=== PATIENT | male | born 1945 | race Caucasian/White ===

== ENCOUNTER 2017-09-07 13:14 | Emergency (ER) | payer BC, MEDICARE ==
[2017-09-07 13:33] VITALS: BP 123/52
[2017-09-07] MEDS ORDERED: Sodium Chloride 0.9% 1,000 ML IV ONE (13:39)
--- NOTE | 2017-09-07 14:07 | EDM.PDOC ---
ED HPI GENERAL MEDICAL PROBLEM - General Chief Complaint: Gastrointestinal Problem Stated Complaint: VOMITING BLOOD Time Seen by Provider: 09/07/17 13:40 Source of Information: Reports: Patient, EMS History Limitations: Reports: No Limitations - History of Present Illness INITIAL COMMENTS - FREE TEXT/NARRATIVE: 72-year-old male has been ill for the last 2-3 days with persistent vomiting. No significant pain. His last few emesis were reddened and dark. He called the ambulance today because he just couldn't stop vomiting. He has not checked his glucose levels for several days because he "can't eat anything". He's only been diagnosed with diabetes for 5 years but apparently it was established as type 1 diabetes. He's had significant weight loss over the last 6 months. Onset: Gradual (Over the past 3 days) Severity: Moderate Associated Symptoms: Reports: Nausea/Vomiting. Denies: Fever/Chills, Headaches , Shortness of Breath - Related Data Allergies Allergy/AdvReac Type Severity Reaction Status Date / Time cephalexin monohydrate Allergy Unknown Hives Verified 09/07/17 13:25 [From Keflex] codeine Allergy Unknown Vomiting Verified 09/07/17 13:25 Home Meds: Home Meds Insulin Glarg,Human.Rec.Analog [Lantus Solostar] 20 - 22 units SQ BEDTIME [History] traZODone 50 mg PO BEDTIME PRN 07/22/15 [History] Insulin Lispro [HumaLOG] 4 - 6 unit SUBCNJ TID 09/07/17 [History] Past Medical History HEENT History: Reports: Impaired Vision Psychiatric History: Reports: Anxiety, Depression Endocrine/Metabolic History: Reports: Diabetes, Type I - Infectious Disease History Infectious Disease History: Reports: Chicken Pox, Measles, Mumps Social & Family History - Tobacco Use Smoking Status *Q: Never Smoker Second Hand Smoke Exposure: No - Caffeine Use Caffeine Use: Reports: Coffee - Alcohol Use Days Per Week of Alcohol Use: 7 Number of Drinks Per Day: 3 Total Drinks Per Week: 21 - Recreational Drug Use Recreational Drug Use: No ED ROS GENERAL - Review of Systems Review Of Systems: See Below Constitutional: Reports: Malaise, Weakness HEENT: Reports: No Symptoms Respiratory: Denies: Shortness of Breath, Pleuritic Chest Pain Cardiovascular: Denies: Chest Pain, Palpitations GI/Abdominal: Reports: Nausea, Vomiting. Denies: Abdominal Pain, Diarrhea : Reports: Frequency (Decreased urinary frequency) Skin: Reports: No Symptoms Neurological: Denies: Dizziness, Headache Psychiatric: Reports: No Symptoms ED EXAM, GENERAL - Physical Exam Exam: See Below Exam Limited By: No Limitations General Appearance: Alert, No Apparent Distress, Other (Appears to be hyperventilating moderately.) Respiratory/Chest: No Respiratory Distress, Lungs Clear Cardiovascular: Regular Rate, Rhythm, Tachycardia GI/Abdominal: Soft, Non-Tender Extremities: Normal Inspection. No: Pedal Edema Neurological: Alert, Oriented, No Motor/Sensory Deficits Psychiatric: Normal Affect, Normal Mood Skin Exam: Warm, Dry Course - Vital Signs Last Recorded V/S: Last Vital Signs Temp 95.4 F 09/07/17 13:26 Pulse 131 H 09/07/17 13:26 Resp 21 H 09/07/17 13:26 BP 123/52 L 09/07/17 13:26 Pulse Ox 99 09/07/17 13:26 - Orders/Labs/Meds Labs: Laboratory Tests 09/07/17 09/07/17 09/07/17 Range/Units 13:45 13:45 13:50 WBC 22.9 H (4.5-11.0) K/uL RBC 4.69 (4.30-5.90) M/uL Hgb 14.3 (12.0-15.0) g/dL Hct 45.6 (40.0-54.0) % MCV 97 (80-98) fL MCH 31 (27-31) pg MCHC 31 L (32-36) % Plt Count 277 (150-400) K/uL Neut % (Auto) 84 H (36-66) % Lymph % (Auto) 4 L (24-44) % [place] % (Auto) 12 H (2-6) % Eos % (Auto) 0 L (2-4) % Baso % (Auto) 0 (0-1) % Puncture Site Rt radial ABG pH 7.053 L* (7.350-7.450) ABG pCO2 10.4 L* (35.0-42.0) mmHg ABG pO2 131.0 H (75.0-100.0) mmHg ABG HCO3 2.7 L (22.0-26.0) mmol/L ABG Total CO2 2.7 L (23.0-27.0) mmol/L ABG O2 Saturation 96.8 (95.0-98.0) % ABG O2 Content 18.9 (15.0-23.0) %vol ABG Base Excess -28.0 mm/L ABG Hemoglobin 14.1 (13.5-18.0) g/dL ABG Oxyhemoglobin 94.8 % ABG Carboxyhemoglobin 1.0 (0.0-1.6) % ABG Methemoglobin 1.1 % [place] Test Pass O2 Delivery Device Room air Sodium 135 L (140-148) mmol/L Potassium 5.9 H (3.6-5.2) mmol/L Chloride 90 L (100-108) mmol/L Carbon Dioxide 5 L D (21-32) mmol/L Anion Gap 45.9 H (5.0-14.0) mmol/L BUN 37 H D (7-18) mg/dL Creatinine 3.1 H D (0.8-1.3) mg/dL Est Cr Clr Drug Dosing 16.79 mL/min Estimated GFR (MDRD) 20 L (>60) Glucose 881 H* (74-106) mg/dL Calcium 8.2 L (8.5-10.1) mg/dL Total Bilirubin 0.6 D (0.2-1.0) mg/dL AST 13 L (15-37) U/L ALT 24 (12-78) U/L Alkaline Phosphatase 88 (46-116) U/L Total Protein 7.0 (6.4-8.2) g/dL Albumin 3.9 (3.4-5.0) g/dL Globulin 3.1 (2.3-3.5) g/dL Albumin/Globulin Ratio 1.3 (1.2-2.2) Meds: Medications Discontinued Medications Generic Name Dose Route Start Last Admin Trade Name Freq PRN Reason Stop Dose Admin Sodium Chloride 1,000 mls @ 999 mls/hr 09/07/17 13:39 09/07/17 13:54 Normal Saline IV 09/07/17 14:39 999 mls/hr ONETIME ONE Administration Insulin Human Regular 5 unit 09/07/17 14:13 09/07/17 14:27 Novolin R IVPUSH 09/07/17 14:14 5 units ONETIME ONE Administration Protocol - Re-Assessments/Exams Free Text/Narrative Re-Assessment/Exam: 09/07/17 14:07 No glucose level was checked by EMS and transfer, so fluids were bolused, CBC CMP ABGs obtained on room air. ABGs confirmed I could diabetic ketoacidosis with a pH of 7.05 and PCO2 of 10. 09/07/17 14:37 Glucose is 880, anion gap 46. Patient was given 5 units of regular insulin IV and normal saline was continued bolused. Potassium was not replaced as of yet, its current level is 5.9. He'll be transferred urgently to [place] where they have an ICU bed, he was accepted by Dr. Arnett. The hospital in [place] was chosen because it was the closest appropriate hospital to transport by ambulance as well as closest to his home. Departure - Departure Time of Disposition: 15:01 Disposition: DC/Tfer to Acute Hospital 02 Condition: Fair Clinical Impression: Diabetic keto-acidosis Qualifiers: Diabetes mellitus type: type 1 Diabetes mellitus complication detail: without coma Qualified Code(s): E10.10 - Type 1 diabetes mellitus with ketoacidosis without coma - Discharge Information Referrals: PCP,None [Primary Care Provider] - Forms: ED Department Discharge Care Plan Goals: Aggressive hydration will be continued, the patient will be transferred to [place] for inpatient care.
[2017-09-07] MEDS ORDERED: Insulin Regular, Human 100 Units/ML 10 ML Vial IVPUSH ONE (14:13)
== END 2017-09-07 15:01 ==
LOC: JP.ED 13:14
DX: E10.10 Type 1 diabetes mellitus with ketoacidosis without coma (principal); Z88.5 Allergy status to narcotic agent; Z79.4 Long term (current) use of insulin
CPT/HCPCS: 36415; 36600; 80053; 82803; 85025; 96361; 96374; 99284; A9270; J7040

== ENCOUNTER 2019-08-17 13:31 | Inpatient (IN) | payer OTHER, MEDICARE ==
--- NOTE | 2019-08-17 14:12 | EDM.PDOC ---
ED HPI GENERAL MEDICAL PROBLEM - General Chief Complaint: General Stated Complaint: MED VIA [facility] Time Seen by Provider: 08/17/19 14:20 Source of Information: Reports: Patient, EMS, Family - History of Present Illness INITIAL COMMENTS - FREE TEXT/NARRATIVE: Ill appearing 74 male presents via EMS for concerns regarding diabetes management. Patient is having difficulty getting his insulin and has not been on insulin for nearly 3 weeks. Patient has changed to a different provider. Patient was noted to have irregular breathing and confusion overnight. Patient fells terrible and EMS was contacted this am by due to concerns. Patient denies cough or URI symptoms. Patient has chronic diarrhea which is not new worse or different. Patient has had increased confusion over the last 2-3 days with worsening vision. Patient has declined ER evaluation over the last week but symptoms became more concerning overnight and this am, call EMS and did not given patient the option. Patient has had nausea, vomiting and decreased oral intake for the last 2-3 days. Patient dis unable to give any additional history. is at bedside and able to add some history. - Related Data Allergies Allergy/AdvReac Type Severity Reaction Status Date / Time cephalexin monohydrate Allergy Unknown Hives Verified 08/17/19 13:50 [From Keflex] codeine AdvReac Unknown Vomiting Verified 08/17/19 14:30 Home Meds: Home Meds Insulin Glarg,Human.Rec.Analog [Lantus Solostar] 20 - 22 units SQ BEDTIME [History] Insulin Lispro [HumaLOG] 4 - 6 unit SUBCNJ TID 09/07/17 [History] Past Medical History HEENT History: Reports: Impaired Vision Psychiatric History: Reports: Anxiety, Depression Endocrine/Metabolic History: Reports: Diabetes, Type I - Infectious Disease History Infectious Disease History: Reports: Chicken Pox, Measles, Mumps Social & Family History - Tobacco Use Smoking Status *Q: Never Smoker - Caffeine Use Caffeine Use: Reports: Coffee - Alcohol Use Days Per Week of Alcohol Use: 7 Number of Drinks Per Day: 8 Total Drinks Per Week: 56 - Recreational Drug Use Recreational Drug Use: No ED ROS GENERAL - Review of Systems Review Of Systems: Unable To Obtain (weakness and kuzmal breathing.) ED EXAM, GENERAL - Physical Exam Exam: See Below Exam Limited By: Other (decreased LOC) General Appearance: Alert, Lethargic, Moderate Distress, Cachetic Eye Exam: Bilateral Eye: EOMI, PERRL Ears: Normal External Exam, Normal Canal, Hearing Grossly Normal Nose: Normal Inspection, Normal Mucosa Throat/Mouth: Normal Inspection, Normal Lips, Normal Teeth, Normal Voice, Other (very dry mouth) Head: Normocephalic Neck: Normal Inspection (flat vessels noted), Supple, Non-Tender, Full Range of Motion Respiratory/Chest: Respiratory Distress, Decreased Breath Sounds, Accessory Muscle Use, Other (Kuzmal breathing ) Cardiovascular: Regular Rate, Rhythm, No Edema, No JVD, Tachycardia GI/Abdominal: Soft, Non-Tender, No Mass, Other (very thin ). No: Distended, Guarding, Rigid, Rebound Back Exam: Normal Inspection, Full Range of Motion. No: CVA Tenderness (R), CVA Tenderness (L) Extremities: Normal Range of Motion, Non-Tender, Mottled. No: Normal Capillary Refill (decreased) Neurological: Alert, CN II-XII Intact, No Motor/Sensory Deficits, Slow to Respond, Abnormal Gait Psychiatric: Normal Affect, Normal Mood Skin Exam: No Rash, Cool EKG INTERPRETATION EKG Date: 08/17/19 Time: 14:50 Rhythm: Other (Sinus tachycardia) Rate (Beats/Min): 111 [place]: RAD-Right [place] Deviation P-Wave: Present QRS: Wide (slightly widened) ST-T: Other (early repol likely due to tacycardia) QT: Normal Comparison: NA - No Prior EKG (2013 Sinus Tachycardia with very similar appearance HR 125) Course - Vital Signs Last Recorded V/S: Last Vital Signs Temp 34.7 C L 08/17/19 14:03 Pulse 113 H 08/17/19 16:16 Resp 16 08/17/19 14:03 BP 134/57 L 08/17/19 16:16 Pulse Ox 100 08/17/19 14:03 - Orders/Labs/Meds Orders: Active Orders 24 hr Category Date Time Status Patient Status Manage Transfer [TRANSFER] Routine ADT 08/17/19 16:11 Active Cardiac Monitoring [RC] .As Directed Care 08/17/19 14:07 Active EKG Documentation Completion [RC] ASDIRECTED Care 08/17/19 14:18 Active Influenza Vaccine Charge [RC] .DISCHARGE Care 08/17/19 13:55 Active POC Glucose [Blood Glucose Check, Bedside] [RC] STAT Care 08/17/19 14:09 Active Chest 1V Frontal [CR] Stat Exams 08/17/19 14:18 Taken UA W/MICROSCOPIC [URIN] Stat Lab 08/17/19 14:41 Ordered Insulin Regular, Human [HumuLIN R] 100 unit Med 08/17/19 14:30 Active Sodium Chloride 0.9% [Normal Saline] 99 ml IV TITRATE Lactated Ringers [Ringers, Lactated] 1,000 ml Med 08/17/19 14:30 Active IV ASDIRECTED Sodium Chloride 0.9% [Normal Saline] 1,000 ml Med 08/17/19 14:15 Active IV ASDIRECTED Blood Culture x2 Reflex Set [OM.PC] Urgent Oth 08/17/19 14:06 Ordered Resuscitation Status Routine Resus Stat 08/17/19 16:13 Ordered EKG 12 Lead [EK] Urgent Ther 08/17/19 14:18 Ordered Medication Orders Sodium Chloride (Normal Saline) 1,000 mls @ 500 mls/hr IV ASDIRECTED JUDIE Last Admin: 08/17/19 14:16 Dose: 500 mls/hr Lactated Ringer's (Ringers, Lactated) 1,000 mls @ 500 mls/hr IV ASDIRECTED JUDIE Last Admin: 08/17/19 14:48 Dose: 500 mls/hr Insulin Human Regular 100 unit (/ Sodium Chloride) 100 mls @ 7.48 mls/hr IV TITRATE JUDIE; Protocol Last Admin: 08/17/19 14:48 Dose: 0.1 units/kg/hr, 7.48 mls/hr Labs: Laboratory Tests 08/17/19 08/17/19 08/17/19 Range/Units 14:06 14:07 14:07 WBC 23.4 H (4.5-11.0) K/uL RBC 4.73 (4.30-5.90) M/uL Hgb 14.8 (12.0-15.0) g/dL Hct 46.7 (40.0-54.0) % MCV 99 H (80-98) fL MCH 31 (27-31) pg MCHC 32 (32-36) % Plt Count 246 (150-400) K/uL Neut % (Auto) 82 H (36-66) % Lymph % (Auto) 6 L (24-44) % [place] % (Auto) 12 H (2-6) % Eos % (Auto) 0 L (2-4) % Baso % (Auto) 0 (0-1) % Sodium 138 L (140-148) mmol/L Potassium 4.6 (3.6-5.2) mmol/L Chloride 91 L (100-108) mmol/L Carbon Dioxide 8 L (21-32) mmol/L Anion Gap 43.6 H (5.0-14.0) mmol/L BUN 27 H (7-18) mg/dL Creatinine 3.2 H (0.8-1.3) mg/dL Est Cr Clr Drug Dosing 20.19 mL/min Estimated GFR (MDRD) 19 L (>60) Glucose 783 H* (74-106) mg/dL Lactic Acid 5.7 H (0.4-2.0) mmol/L Calcium 8.5 (8.5-10.1) mg/dL NT-Pro-B Natriuret Pep 823 H (5-125) pg/mL Ketones (NEGATIVE) 08/17/19 Range/Units 14:08 WBC (4.5-11.0) K/uL RBC (4.30-5.90) M/uL Hgb (12.0-15.0) g/dL Hct (40.0-54.0) % MCV (80-98) fL MCH (27-31) pg MCHC (32-36) % Plt Count (150-400) K/uL Neut % (Auto) (36-66) % Lymph % (Auto) (24-44) % [place] % (Auto) (2-6) % Eos % (Auto) (2-4) % Baso % (Auto) (0-1) % Sodium (140-148) mmol/L Potassium (3.6-5.2) mmol/L Chloride (100-108) mmol/L Carbon Dioxide (21-32) mmol/L Anion Gap (5.0-14.0) mmol/L BUN (7-18) mg/dL Creatinine (0.8-1.3) mg/dL Est Cr Clr Drug Dosing mL/min Estimated GFR (MDRD) (>60) Glucose (74-106) mg/dL Lactic Acid (0.4-2.0) mmol/L Calcium (8.5-10.1) mg/dL NT-Pro-B Natriuret Pep (5-125) pg/mL Ketones Moderate H (NEGATIVE) Meds: Medications Generic Name Dose Route Start Last Admin Trade Name Freq PRN Reason Stop Dose Admin Sodium Chloride 1,000 mls @ 500 mls/hr 08/17/19 14:15 08/17/19 14:16 Normal Saline IV 500 mls/hr ASDIRECTED JUDIE Administration Lactated Ringer's 1,000 mls @ 500 mls/hr 08/17/19 14:30 08/17/19 14:48 Ringers, Lactated IV 500 mls/hr ASDIRECTED JUDIE Administration Insulin Human Regular 100 unit 100 mls @ 7.48 mls/hr 08/17/19 14:30 08/17/19 14:48 / Sodium Chloride IV 0.1 units/kg/hr TITRATE JUDIE 7.48 mls/hr Administration Protocol 0.1 UNITS/KG/HR Discontinued Medications Generic Name Dose Route Start Last Admin Trade Name Carsonq PRN Reason Stop Dose Admin Influenza Virus Vaccine 1 each 08/17/19 13:55 Pharmacy To Dose - Influenza Vaccine IM 08/17/19 13:56 ONETIME ONE Influenza Virus Vaccine 180 mcg 08/17/19 14:00 Fluzone High-Dose 2019-20 Syringe IM 08/17/19 14:01 .ONCE ONE - Re-Assessments/Exams Free Text/Narrative Re-Assessment/Exam: Spoke to admitting provider regarding DKA and difficulty with DM management with no insulin the last 3 weeks due to insurance and medical provider difficulties. was updated regarding admission, need for IV fluids, insulin drip, NS and LR running. Patient did not offer any additional complaints or concerns. Patient denied cough, headache, fever, URI symptoms, urinary symptoms or new concerns. Patient has had decreased appetite over the last 3 weeks with unknown weight loss. I reviewed laboratory testing with patient and . Anion Gap 43. Acute kidney injury, BS 700+, moderate urine ketones and significant dehydration. Lactic Acid 5.7 likely secondary to poor perfusion. Repeat testing after hydration may be considered. 08/17/19 15:23 Admitting provider requested ICU admission and in department to evaluate patient. I asked for lab to be contacted regarding need for Q1H blood sugar tests while on insulin drip. CXR Portable obtained. UA pending, patient unable to give urine sample despite 2 liters of fluid given. 08/17/19 15:41 CRITICAL CARE TIME: Greater than 45 minutes spent while patient was critical due to DKA, needing IVF, Insulin drip initiated. Potassium and electrolytes are normal. Departure - Departure Time of Disposition: 16:20 Disposition: Admitted As Inpatient 68 Clinical Impression: Nausea & vomiting, Chronic back pain, Chronic diarrhea, Acidosis due to secondary diabetes, Acute renal insufficiency, Diabetes, Acute hyperglycemia Diabetic keto-acidosis Qualifiers: Diabetes mellitus type: type 1 Diabetes mellitus complication detail: without coma Qualified Code(s): E10.10 - Type 1 diabetes mellitus with ketoacidosis without coma - Discharge Information Referrals: PCP,None [Primary Care Provider] - Forms: ED Department Discharge - Problem List & Annotations (1) Diabetic keto-acidosis SNOMED Code(s): 131273818, 688340418 Code(s): E13.10 - OTH DIABETES MELLITUS WITH KETOACIDOSIS WITHOUT COMA Status: Acute Current Visit: Yes Qualifiers: Diabetes mellitus type: type 1 Diabetes mellitus complication detail: without coma Qualified Code(s): E10.10 - Type 1 diabetes mellitus with ketoacidosis without coma (2) Acute hyperglycemia SNOMED Code(s): 123489764 Code(s): R73.9 - HYPERGLYCEMIA, UNSPECIFIED Status: Acute Current Visit: Yes (3) Acute renal insufficiency SNOMED Code(s): 016003887 Code(s): N28.9 - DISORDER OF KIDNEY AND URETER, UNSPECIFIED Status: Acute Current Visit: Yes (4) Chronic back pain SNOMED Code(s): 459247884 Code(s): M54.9 - DORSALGIA, UNSPECIFIED; G89.29 - OTHER CHRONIC PAIN Status : Acute Current Visit: Yes (5) Nausea & vomiting SNOMED Code(s): 86450600 Code(s): R11.2 - NAUSEA WITH VOMITING, UNSPECIFIED Status: Acute Current Visit: Yes - My Orders Last 24 Hours: My Active Orders 08/17/19 13:55 Influenza Vaccine Charge [RC] .DISCHARGE 08/17/19 14:06 Blood Culture x2 Reflex Set [OM.PC] Urgent 08/17/19 14:07 Cardiac Monitoring [RC] .As Directed 08/17/19 14:09 POC Glucose [Blood Glucose Check, Bedside] [RC] STAT 08/17/19 14:15 Sodium Chloride 0.9% [Normal Saline] 1,000 ml IV ASDIRECTED 08/17/19 14:18 EKG Documentation Completion [RC] ASDIRECTED Chest 1V Frontal [CR] Stat EKG 12 Lead [EK] Urgent 08/17/19 14:30 Insulin Regular, Human [HumuLIN R] 100 unit Sodium Chloride 0.9% [Normal Saline] 99 ml IV TITRATE Lactated Ringers [Ringers, Lactated] 1,000 ml IV ASDIRECTED 08/17/19 14:41 UA W/MICROSCOPIC [URIN] Stat - Assessment/Plan Last 24 Hours: My Active Orders 08/17/19 13:55 Influenza Vaccine Charge [RC] .DISCHARGE 08/17/19 14:06 Blood Culture x2 Reflex Set [OM.PC] Urgent 08/17/19 14:07 Cardiac Monitoring [RC] .As Directed 08/17/19 14:09 POC Glucose [Blood Glucose Check, Bedside] [RC] STAT 08/17/19 14:15 Sodium Chloride 0.9% [Normal Saline] 1,000 ml IV ASDIRECTED 08/17/19 14:18 EKG Documentation Completion [RC] ASDIRECTED Chest 1V Frontal [CR] Stat EKG 12 Lead [EK] Urgent 08/17/19 14:30 Insulin Regular, Human [HumuLIN R] 100 unit Sodium Chloride 0.9% [Normal Saline] 99 ml IV TITRATE Lactated Ringers [Ringers, Lactated] 1,000 ml IV ASDIRECTED 08/17/19 14:41 UA W/MICROSCOPIC [URIN] Stat
[2019-08-17] MEDS ORDERED: Sodium Chloride 0.9% 1,000 ML IV SCH (14:15)
[2019-08-17] MEDS ORDERED: Lactated Ringers 1,000 ML IV SCH (14:30)
--- NOTE | 2019-08-17 16:29 | PCM.HP.2 ---
H&P History of Present Illness - General Date of Service: 08/17/19 Admit Problem/Dx: Admission Diagnosis/Problem Admission Diagnosis/Problem Diabetic ketoacidosis Source of Information: Patient, Family, Provider, RN Notes Reviewed History Limitations: Reports: No Limitations - History of Present Illness Initial Comments - Free Text/Narative: Mr. Patton is a 74-year-old gentleman who was admitted through the emergency department with profound weakness, confusion, nausea, vomiting, secondary to severe diabetic ketoacidosis. He is intermittently confused so much of history was obtained from his . She reports that he stop taking his insulin regularly about 3-4 weeks ago, since then he is been taking insulin infrequently. Over the last 3 days he has become significantly more weak and confused, with nausea and vomiting. He was brought into the emergency department and found to be in severe ketoacidosis with an anion gap of 43 and carbon dioxide level of 8. He is received 2 L of fluids in the emergency apartment and started on a continuous infusion of regular insulin. There is no evidence of underlying infection, white blood cell count is elevated at 23,000. Urinalysis and chest x-ray are pending at the time of this dictation. - Related Data Allergies/Adverse Reactions: Allergies Allergy/AdvReac Type Severity Reaction Status Date / Time cephalexin monohydrate Allergy Unknown Hives Verified 08/17/19 13:50 [From Keflex] codeine AdvReac Unknown Vomiting Verified 08/17/19 14:30 Home Medications: Home Meds Insulin Glarg,Human.Rec.Analog [Lantus Solostar] 20 - 22 units SQ BEDTIME [History] Insulin Lispro [HumaLOG] 4 - 6 unit SUBCNJ TID 09/07/17 [History] Past Medical History HEENT History: Reports: Impaired Vision Psychiatric History: Reports: Anxiety, Depression Endocrine/Metabolic History: Reports: Diabetes, Type I - Infectious Disease History Infectious Disease History: Reports: Chicken Pox, Measles, Mumps Social & Family History - Tobacco Use Smoking Status *Q: Never Smoker - Caffeine Use Caffeine Use: Reports: Coffee - Alcohol Use Days Per Week of Alcohol Use: 7 Number of Drinks Per Day: 8 Total Drinks Per Week: 56 - Recreational Drug Use Recreational Drug Use: No H&P Review of Systems - Review of Systems: Review Of Systems: See Below General: Reports: Malaise, Weakness, Decreased Appetite. Denies: Fever, Chills HEENT: Reports: No Symptoms Pulmonary: Reports: No Symptoms Cardiovascular: Reports: No Symptoms Gastrointestinal: Reports: Decreased Appetite, Nausea, Vomiting. Denies: Abdominal Pain, Black Stool, Bloody Stool, Constipation, Diarrhea, Difficulty Swallowing Genitourinary: Reports: No Symptoms Musculoskeletal: Reports: Back Pain Skin: Reports: No Symptoms Psychiatric: Reports: No Symptoms Neurological: Reports: No Symptoms Hematologic/Lymphatic: Reports: No Symptoms Immunologic: Reports: No Symptoms Exam - Exam Exam: See Below - Vital Signs Vital Signs: Last Vital Signs Temp 94.4 F L 08/17/19 14:03 Pulse 113 H 08/17/19 16:16 Resp 16 08/17/19 14:03 BP 134/57 L 08/17/19 16:16 Pulse Ox 100 08/17/19 14:03 Weight: 165 lb - Exam Quality Assessment: DVT Prophylaxis General: Alert, Cooperative, Moderate Distress. No: Oriented HEENT: Conjunctiva Clear, Hearing Intact, Normal Nasal Septum, Posterior Pharynx Clear, Pupils Equal. No: Mucosa Moist & [place] Neck: Supple, Trachea Midline, +2 Carotid Pulse wo Bruit Lungs: Clear to Auscultation, Normal Respiratory Effort, Decreased Breath Sounds. No: Wheezing Cardiovascular: Regular Rate, Regular Rhythm, Normal S1, Normal S2. No: Systolic Murmur, Diastolic Murmur GI/Abdominal Exam: Soft, Non-Tender, No Organomegaly, No Distention Back Exam: Normal Inspection, Full Range of Motion, Vertebral Tenderness Extremities: Non-Tender, No Pedal Edema Skin: Warm, Dry, Intact Neurological: Cranial Nerves Intact, Strength Equal Bilateral, Normal Speech, Normal Tone, Sensation Intact. No: Focal Deficit Neuro Extensive - Mental Status: Alert, Normal Mood/Affect, Disorientation to Place, Disorientation to Time, Memory Loss-Recent Events. No: Oriented x3, Normal Cognition, Memory Intact Psychiatric: Depressed - Patient Data Lab Results Last 24 hrs: Laboratory Results - last 24 hr 08/17/19 08/17/19 08/17/19 Range/Units 14:06 14:07 14:07 WBC 23.4 H (4.5-11.0) K/uL RBC 4.73 (4.30-5.90) M/uL Hgb 14.8 (12.0-15.0) g/dL Hct 46.7 (40.0-54.0) % MCV 99 H (80-98) fL MCH 31 (27-31) pg MCHC 32 (32-36) % Plt Count 246 (150-400) K/uL Neut % (Auto) 82 H (36-66) % Lymph % (Auto) 6 L (24-44) % Terrell % (Auto) 12 H (2-6) % Eos % (Auto) 0 L (2-4) % Baso % (Auto) 0 (0-1) % Sodium 138 L (140-148) mmol/L Potassium 4.6 (3.6-5.2) mmol/L Chloride 91 L (100-108) mmol/L Carbon Dioxide 8 L (21-32) mmol/L Anion Gap 43.6 H (5.0-14.0) mmol/L BUN 27 H (7-18) mg/dL Creatinine 3.2 H (0.8-1.3) mg/dL Est Cr Clr Drug Dosing 20.19 mL/min Estimated GFR (MDRD) 19 L (>60) Glucose 783 H* (74-106) mg/dL Lactic Acid 5.7 H (0.4-2.0) mmol/L Calcium 8.5 (8.5-10.1) mg/dL NT-Pro-B Natriuret Pep 823 H (5-125) pg/mL Ketones (NEGATIVE) 08/17/19 Range/Units 14:08 WBC (4.5-11.0) K/uL RBC (4.30-5.90) M/uL Hgb (12.0-15.0) g/dL Hct (40.0-54.0) % MCV (80-98) fL MCH (27-31) pg MCHC (32-36) % Plt Count (150-400) K/uL Neut % (Auto) (36-66) % Lymph % (Auto) (24-44) % Terrell % (Auto) (2-6) % Eos % (Auto) (2-4) % Baso % (Auto) (0-1) % Sodium (140-148) mmol/L Potassium (3.6-5.2) mmol/L Chloride (100-108) mmol/L Carbon Dioxide (21-32) mmol/L Anion Gap (5.0-14.0) mmol/L BUN (7-18) mg/dL Creatinine (0.8-1.3) mg/dL Est Cr Clr Drug Dosing mL/min Estimated GFR (MDRD) (>60) Glucose (74-106) mg/dL Lactic Acid (0.4-2.0) mmol/L Calcium (8.5-10.1) mg/dL NT-Pro-B Natriuret Pep (5-125) pg/mL Ketones Moderate H (NEGATIVE) Result Diagrams: 08/17/19 14:07 08/17/19 14:06 *Q Meaningful Use (ADM) - VTE Risk Assess *Q Each Risk Factor Represents 1 Point: Abnormal Pulmonary Function (COPD) Total Score 1 Point Risk Factors: 1 Each Risk Factor Represents 2 Points: Age 60 - 74 Years Total Score 2 Point Risk Factors: 2 Each Risk Factor Represents 3 Points: None Total Score 3 Point Risk Factors: 0 Each Risk Factor Represents 5 Points: None Total Score 5 Point Risk Factors: 0 Venous Thromboembolism Risk Factor Score *Q: 3 Problem List Initiated/Reviewed/Updated: Yes Orders Last 24hrs: Active Orders 24 hr Category Date Time Status Patient Status Manage Transfer [TRANSFER] Routine ADT 08/17/19 16:11 Ordered Cardiac Monitoring [RC] .As Directed Care 08/17/19 14:07 Active EKG Documentation Completion [RC] ASDIRECTED Care 08/17/19 14:18 Active Influenza Vaccine Charge [RC] .DISCHARGE Care 08/17/19 13:55 Active POC Glucose [Blood Glucose Check, Bedside] [RC] STAT Care 08/17/19 14:09 Active Chest 1V Frontal [CR] Stat Exams 08/17/19 14:18 Taken UA W/MICROSCOPIC [URIN] Stat Lab 08/17/19 14:41 Ordered Insulin Regular, Human [HumuLIN R] 100 unit Med 08/17/19 14:30 Active Sodium Chloride 0.9% [Normal Saline] 99 ml IV TITRATE Lactated Ringers [Ringers, Lactated] 1,000 ml Med 08/17/19 14:30 Active IV ASDIRECTED Sodium Chloride 0.9% [Normal Saline] 1,000 ml Med 08/17/19 14:15 Active IV ASDIRECTED Blood Culture x2 Reflex Set [OM.PC] Urgent Oth 08/17/19 14:06 Ordered Resuscitation Status Routine Resus Stat 08/17/19 16:13 Ordered EKG 12 Lead [EK] Urgent Ther 08/17/19 14:18 Ordered Medication Orders Sodium Chloride (Normal Saline) 1,000 mls @ 500 mls/hr IV ASDIRECTED JUDIE Last Admin: 08/17/19 14:16 Dose: 500 mls/hr Lactated Ringer's (Ringers, Lactated) 1,000 mls @ 500 mls/hr IV ASDIRECTED JUDIE Last Admin: 08/17/19 14:48 Dose: 500 mls/hr Insulin Human Regular 100 unit (/ Sodium Chloride) 100 mls @ 7.48 mls/hr IV TITRATE JUDIE; Protocol Last Admin: 08/17/19 14:48 Dose: 0.1 units/kg/hr, 7.48 mls/hr Assessment/Plan Comment:: ASSESSMENT AND PLAN DIABETIC KETOACIDOSIS-history of type 1 diabetes mellitus, he has been taking insulin only infrequently over the last 3-4 weeks. White blood cell count elevated likely secondary to stress, by history and physical examination no evidence of underlying infection. -Urinalysis and chest x-ray pending -IV insulin per ketoacidosis protocol -Electrolyte management per ketoacidosis protocol -IV fluids per protocol LACTIC ACIDOSIS-likely secondary to dehydration. -IV fluid replacement as above DEPRESSION-patient and give a history of worsening depression, patient reports that he really does not care if he lives or dies. -Consider initiation of antidepressant therapy -Patient follow-up with psychology for counseling MAINTENANCE ISSUES -DVT prophylaxis; Lovenox 40 mg subcutaneous daily -GI prophylaxis; not indicated -[place] catheter; not indicated -Nutrition; consistent carb diet -Nicotine dependence; not required CODE STATUS-FULL CODE ADMISSION STATUS-patient will be admitted to inpatient status, expect at least a 2 night hospital stay for evaluation and management of problems as outlined above. At the time of this admission I do not reasonably expected evaluation and management of this problem will require more than a 96 hour hospital stay. DISPOSITION-anticipate discharge to home after the hospital stay. PRIMARY CARE PROVIDER-Dr. Cage - Mortality Measure Prognosis:: Good
[2019-08-17] MEDS ORDERED: Polyethylene Glycol 3350 Powder 17 GM Packet PO PRN (16:44)
[2019-08-17] MEDS ORDERED: Sodium Phosphate 60 MMOLE in Sodium Chloride 0.9% 250 ML IV PRN (16:44)
[2019-08-17] MEDS ORDERED: Albuterol 0.083% 2.5 MG/3 ML Neb Soln NEB PRN (16:44)
[2019-08-17] MEDS ORDERED: Potassium Chloride 10% 20 MEQ/15 ML Soln 15 ML UD Cup PO PRN ×2 (16:44)
[2019-08-17] MEDS ORDERED: Acetaminophen 325 MG Tab PO PRN (16:44)
[2019-08-17] MEDS ORDERED: 50% Dextrose in Water 50 ML Syringe IVPUSH PRN (16:44)
[2019-08-17] MEDS ORDERED: Pantoprazole 40 MG Tab.CR PO SCH (16:44)
[2019-08-17] MEDS ORDERED: Magnesium Sulfate/Water 50 ML IV PRN (16:44)
[2019-08-17] MEDS ORDERED: Enoxaparin 30 MG/0.3 ML Syringe SUBCUT SCH (16:44)
[2019-08-17] MEDS ORDERED: oxyCODONE 5 MG Tab PO PRN (16:44)
--- NOTE | 2019-08-17 16:54 | CRLCR ---
Indication: KDA Technique: A single AP portable view of the chest was obtained. Comparison: September 20, 2014. Findings: The heart is normal in size. The lungs are clear. No infiltrate, pleural effusion, or pneumothorax is identified. Impression: No acute cardiopulmonary process Dictated by Lennie Hall MD @ Aug 17 2019 4:50PM Signed by Dr. Lennie Hall @ Aug 17 2019 4:52PM
[2019-08-17] MEDS: Sodium Chloride 0.9% 2,000 ML IV PRN ×2 (16:57→20:44)
[2019-08-17] MEDS: Ondansetron 4 MG/2 ML SDV IV PRN (23:42)
[2019-08-18] MEDS: Potassium Chloride 10% 20 MEQ/15 ML Soln 15 ML UD Cup PO PRN ×2 (01:11→03:21)
[2019-08-18] MEDS ORDERED: Potassium Chloride 10% 20 MEQ/15 ML Soln 15 ML UD Cup ONE (03:18)
[2019-08-18] MEDS: Ondansetron 4 MG/2 ML SDV IV PRN (03:30)
[2019-08-18] MEDS ORDERED: Insulin Regular, Human 100 Units/ML 3 ML Vial ONE (04:07)
[2019-08-18 04:42] LABS: HEMOGLOBIN A1C 8.9 % (4.5-6.2)
[2019-08-18] MEDS: Potassium Chloride 20 MEQ in Premix Bag 1 BAG IV SCH ×2 (06:04→08:29)
[2019-08-18] MEDS: Dextrose 5%-0.45% NaCl 1,000 ML IV PRN ×4 (06:38→19:50)
[2019-08-18] MEDS: Pantoprazole 40 MG Tab.CR PO SCH (08:11)
[2019-08-18] MEDS ORDERED: Potassium Chloride 20 MEQ, Lidocaine 1% 2 ML in Sodium Chloride 0.9% 100 ML IV ONE ×2 (08:15→10:45)
--- NOTE | 2019-08-18 09:36 | PCM.PN ---
- General Info Date of Service: 08/18/19 Subjective Update: Mr. Patton is improved significantly since admission. Glucose levels under better control and ketoacidosis although not resolved has significantly improved. He feels better this morning with more energy and did have a small amount to eat for breakfast. Functional Status: Reports: Tolerating Diet, Urinating - Review of Systems General: Reports: Weakness. Denies: Fever, Chills Pulmonary: Reports: No Symptoms Cardiovascular: Reports: No Symptoms Gastrointestinal: Reports: No Symptoms - Patient Data Vitals - Most Recent: Last Vital Signs Temp 99.0 F 08/18/19 08:00 Pulse 96 08/18/19 09:00 Resp 12 08/18/19 09:00 BP 113/54 L 08/18/19 09:00 Pulse Ox 100 08/18/19 09:00 Weight - Most Recent: 164 lb 14.492 oz I&O - Last 24 Hours: Intake & Output 08/17/19 08/18/19 08/18/19 22:59 06:59 14:59 Intake Total 480 4715 Output Total 1200 Balance 480 3515 Lab Results Last 24 Hours: Laboratory Results - last 24 hr 08/17/19 08/17/19 08/17/19 Range/Units 14:06 14:07 14:07 WBC 23.4 H (4.5-11.0) K/uL RBC 4.73 (4.30-5.90) M/uL Hgb 14.8 (12.0-15.0) g/dL Hct 46.7 (40.0-54.0) % MCV 99 H (80-98) fL MCH 31 (27-31) pg MCHC 32 (32-36) % Plt Count 246 (150-400) K/uL Neut % (Auto) 82 H (36-66) % Lymph % (Auto) 6 L (24-44) % Cocke % (Auto) 12 H (2-6) % Eos % (Auto) 0 L (2-4) % Baso % (Auto) 0 (0-1) % Sodium 138 L (140-148) mmol/L Potassium 4.6 (3.6-5.2) mmol/L Chloride 91 L (100-108) mmol/L Carbon Dioxide 8 L (21-32) mmol/L Anion Gap 43.6 H (5.0-14.0) mmol/L BUN 27 H (7-18) mg/dL Creatinine 3.2 H (0.8-1.3) mg/dL Est Cr Clr Drug Dosing 20.19 mL/min Estimated GFR (MDRD) 19 L (>60) Glucose 783 H* (74-106) mg/dL Hemoglobin A1c (4.5-6.2) % Lactic Acid 5.7 H (0.4-2.0) mmol/L Calcium 8.5 (8.5-10.1) mg/dL Phosphorus (2.5-4.9) mg/dL Magnesium (1.8-2.4) mg/dL NT-Pro-B Natriuret Pep 823 H (5-125) pg/mL Urine Color (YELLOW) Urine Appearance (CLEAR) Urine pH (5.0-8.0) Ur Specific [place] (1.008-1.030) Urine Protein (NEGATIVE) mg/dL Urine Glucose (UA) (NEGATIVE) mg/dL Urine Ketones (NEGATIVE) mg/dL Urine Occult Blood (NEGATIVE) Urine Nitrite (NEGATIVE) Urine Bilirubin (NEGATIVE) Urine Urobilinogen (0.2-1.0) EU/dL Ur Leukocyte Esterase (NEGATIVE) Urine RBC (0-5) Urine WBC (0-5) Ur Epithelial Cells Amorphous Sediment Urine Bacteria Urine Mucus Ketones (NEGATIVE) 08/17/19 08/17/19 08/17/19 Range/Units 14:08 16:45 18:44 WBC (4.5-11.0) K/uL RBC (4.30-5.90) M/uL Hgb (12.0-15.0) g/dL Hct (40.0-54.0) % MCV (80-98) fL MCH (27-31) pg MCHC (32-36) % Plt Count (150-400) K/uL Neut % (Auto) (36-66) % Lymph % (Auto) (24-44) % Cocke % (Auto) (2-6) % Eos % (Auto) (2-4) % Baso % (Auto) (0-1) % Sodium 137 L (140-148) mmol/L Potassium 4.3 4.1 (3.6-5.2) mmol/L Chloride 97 L (100-108) mmol/L Carbon Dioxide 6 L (21-32) mmol/L Anion Gap 38.3 H (5.0-14.0) mmol/L BUN 36 H (7-18) mg/dL Creatinine 3.1 H (0.8-1.3) mg/dL Est Cr Clr Drug Dosing 20.92 mL/min Estimated GFR (MDRD) 20 L (>60) Glucose 641 H* (74-106) mg/dL Hemoglobin A1c (4.5-6.2) % Lactic Acid (0.4-2.0) mmol/L Calcium 7.2 L D (8.5-10.1) mg/dL Phosphorus 6.4 H (2.5-4.9) mg/dL Magnesium 2.1 (1.8-2.4) mg/dL NT-Pro-B Natriuret Pep (5-125) pg/mL Urine Color (YELLOW) Urine Appearance (CLEAR) Urine pH (5.0-8.0) Ur Specific [place] (1.008-1.030) Urine Protein (NEGATIVE) mg/dL Urine Glucose (UA) (NEGATIVE) mg/dL Urine Ketones (NEGATIVE) mg/dL Urine Occult Blood (NEGATIVE) Urine Nitrite (NEGATIVE) Urine Bilirubin (NEGATIVE) Urine Urobilinogen (0.2-1.0) EU/dL Ur Leukocyte Esterase (NEGATIVE) Urine RBC (0-5) Urine WBC (0-5) Ur Epithelial Cells Amorphous Sediment Urine Bacteria Urine Mucus Ketones Moderate H (NEGATIVE) 08/17/19 08/17/19 08/17/19 Range/Units 20:53 20:53 22:45 WBC (4.5-11.0) K/uL RBC (4.30-5.90) M/uL Hgb (12.0-15.0) g/dL Hct (40.0-54.0) % MCV (80-98) fL MCH (27-31) pg MCHC (32-36) % Plt Count (150-400) K/uL Neut % (Auto) (36-66) % Lymph % (Auto) (24-44) % Cocke % (Auto) (2-6) % Eos % (Auto) (2-4) % Baso % (Auto) (0-1) % Sodium 139 L (140-148) mmol/L Potassium 3.6 3.2 L (3.6-5.2) mmol/L Chloride 103 (100-108) mmol/L Carbon Dioxide 8 L (21-32) mmol/L Anion Gap 31.6 H (5.0-14.0) mmol/L BUN 39 H (7-18) mg/dL Creatinine 2.4 H (0.8-1.3) mg/dL Est Cr Clr Drug Dosing 27.02 mL/min Estimated GFR (MDRD) 27 L (>60) Glucose 374 H (74-106) mg/dL Hemoglobin A1c (4.5-6.2) % Lactic Acid 2.1 H (0.4-2.0) mmol/L Calcium 7.0 L (8.5-10.1) mg/dL Phosphorus 1.2 L (2.5-4.9) mg/dL Magnesium 1.6 L (1.8-2.4) mg/dL NT-Pro-B Natriuret Pep (5-125) pg/mL Urine Color (YELLOW) Urine Appearance (CLEAR) Urine pH (5.0-8.0) Ur Specific [place] (1.008-1.030) Urine Protein (NEGATIVE) mg/dL Urine Glucose (UA) (NEGATIVE) mg/dL Urine Ketones (NEGATIVE) mg/dL Urine Occult Blood (NEGATIVE) Urine Nitrite (NEGATIVE) Urine Bilirubin (NEGATIVE) Urine Urobilinogen (0.2-1.0) EU/dL Ur Leukocyte Esterase (NEGATIVE) Urine RBC (0-5) Urine WBC (0-5) Ur Epithelial Cells Amorphous Sediment Urine Bacteria Urine Mucus Ketones (NEGATIVE) 08/18/19 08/18/19 08/18/19 Range/Units 00:10 00:50 02:50 WBC (4.5-11.0) K/uL RBC (4.30-5.90) M/uL Hgb (12.0-15.0) g/dL Hct (40.0-54.0) % MCV (80-98) fL MCH (27-31) pg MCHC (32-36) % Plt Count (150-400) K/uL Neut % (Auto) (36-66) % Lymph % (Auto) (24-44) % Cocke % (Auto) (2-6) % Eos % (Auto) (2-4) % Baso % (Auto) (0-1) % Sodium 141 (140-148) mmol/L Potassium 3.5 L 3.4 L (3.6-5.2) mmol/L Chloride 108 (100-108) mmol/L Carbon Dioxide 14 L (21-32) mmol/L Anion Gap 22.5 H (5.0-14.0) mmol/L BUN 38 H (7-18) mg/dL Creatinine 2.1 H (0.8-1.3) mg/dL Est Cr Clr Drug Dosing 30.88 mL/min Estimated GFR (MDRD) 31 L (>60) Glucose 187 H (74-106) mg/dL Hemoglobin A1c (4.5-6.2) % Lactic Acid (0.4-2.0) mmol/L Calcium 7.5 L (8.5-10.1) mg/dL Phosphorus (2.5-4.9) mg/dL Magnesium (1.8-2.4) mg/dL NT-Pro-B Natriuret Pep (5-125) pg/mL Urine Color Yellow (YELLOW) Urine Appearance Clear (CLEAR) Urine pH 5.5 (5.0-8.0) Ur Specific [place] 1.020 (1.008-1.030) Urine Protein 30 H (NEGATIVE) mg/dL Urine Glucose (UA) 500 H (NEGATIVE) mg/dL Urine Ketones 80 H (NEGATIVE) mg/dL Urine Occult Blood Moderate H (NEGATIVE) Urine Nitrite Negative (NEGATIVE) Urine Bilirubin Small H (NEGATIVE) Urine Urobilinogen 0.2 (0.2-1.0) EU/dL Ur Leukocyte Esterase Negative (NEGATIVE) Urine RBC 0-5 (0-5) Urine WBC 0-5 (0-5) Ur Epithelial Cells Not seen Amorphous Sediment Not seen Urine Bacteria Few Urine Mucus Not seen Ketones (NEGATIVE) 08/18/19 08/18/19 08/18/19 Range/Units 04:45 04:45 04:45 WBC 9.5 (4.5-11.0) K/uL RBC 3.43 L (4.30-5.90) M/uL Hgb 10.7 L D (12.0-15.0) g/dL Hct 31.2 L (40.0-54.0) % MCV 91 (80-98) fL MCH 31 (27-31) pg MCHC 34 (32-36) % Plt Count 132 L (150-400) K/uL Neut % (Auto) 82 H (36-66) % Lymph % (Auto) 7 L (24-44) % Cocke % (Auto) 12 H (2-6) % Eos % (Auto) 0 L (2-4) % Baso % (Auto) 0 (0-1) % Sodium 141 (140-148) mmol/L Potassium 3.4 L (3.6-5.2) mmol/L Chloride 111 H (100-108) mmol/L Carbon Dioxide 18 L (21-32) mmol/L Anion Gap 15.4 H (5.0-14.0) mmol/L BUN 38 H (7-18) mg/dL Creatinine 1.9 H (0.8-1.3) mg/dL Est Cr Clr Drug Dosing 34.13 mL/min Estimated GFR (MDRD) 35 L (>60) Glucose 140 H (74-106) mg/dL Hemoglobin A1c (4.5-6.2) % Lactic Acid 2.8 H (0.4-2.0) mmol/L Calcium 7.6 L (8.5-10.1) mg/dL Phosphorus 0.6 L (2.5-4.9) mg/dL Magnesium 2.0 (1.8-2.4) mg/dL NT-Pro-B Natriuret Pep (5-125) pg/mL Urine Color (YELLOW) Urine Appearance (CLEAR) Urine pH (5.0-8.0) Ur Specific [place] (1.008-1.030) Urine Protein (NEGATIVE) mg/dL Urine Glucose (UA) (NEGATIVE) mg/dL Urine Ketones (NEGATIVE) mg/dL Urine Occult Blood (NEGATIVE) Urine Nitrite (NEGATIVE) Urine Bilirubin (NEGATIVE) Urine Urobilinogen (0.2-1.0) EU/dL Ur Leukocyte Esterase (NEGATIVE) Urine RBC (0-5) Urine WBC (0-5) Ur Epithelial Cells Amorphous Sediment Urine Bacteria Urine Mucus Ketones (NEGATIVE) 08/18/19 08/18/19 08/18/19 Range/Units 04:45 06:44 08:44 WBC (4.5-11.0) K/uL RBC (4.30-5.90) M/uL Hgb (12.0-15.0) g/dL Hct (40.0-54.0) % MCV (80-98) fL MCH (27-31) pg MCHC (32-36) % Plt Count (150-400) K/uL Neut % (Auto) (36-66) % Lymph % (Auto) (24-44) % [place] % (Auto) (2-6) % Eos % (Auto) (2-4) % Baso % (Auto) (0-1) % Sodium 140 (140-148) mmol/L Potassium 3.4 L 3.2 L (3.6-5.2) mmol/L Chloride 111 H (100-108) mmol/L Carbon Dioxide 18 L (21-32) mmol/L Anion Gap 14.2 H (5.0-14.0) mmol/L BUN 30 H (7-18) mg/dL Creatinine 1.5 H (0.8-1.3) mg/dL Est Cr Clr Drug Dosing 43.23 mL/min Estimated GFR (MDRD) 46 L (>60) Glucose 292 H (74-106) mg/dL Hemoglobin A1c 8.9 H (4.5-6.2) % Lactic Acid (0.4-2.0) mmol/L Calcium 7.0 L (8.5-10.1) mg/dL Phosphorus (2.5-4.9) mg/dL Magnesium (1.8-2.4) mg/dL NT-Pro-B Natriuret Pep (5-125) pg/mL Urine Color (YELLOW) Urine Appearance (CLEAR) Urine pH (5.0-8.0) Ur Specific [place] (1.008-1.030) Urine Protein (NEGATIVE) mg/dL Urine Glucose (UA) (NEGATIVE) mg/dL Urine Ketones (NEGATIVE) mg/dL Urine Occult Blood (NEGATIVE) Urine Nitrite (NEGATIVE) Urine Bilirubin (NEGATIVE) Urine Urobilinogen (0.2-1.0) EU/dL Ur Leukocyte Esterase (NEGATIVE) Urine RBC (0-5) Urine WBC (0-5) Ur Epithelial Cells Amorphous Sediment Urine Bacteria Urine Mucus Ketones (NEGATIVE) Med Orders - Current: Current Medications Acetaminophen (Tylenol) 650 mg PO Q4H PRN PRN Reason: Pain (Mild 1-3)/fever Albuterol (Proventil Neb Soln) 2.5 mg NEB Q4H PRN PRN Reason: Shortness Of Breath/wheezing Dextrose/Water (Dextrose 50% In Water) 50 ml IVPUSH ONETIME PRN PRN Reason: Blood Glucose Enoxaparin Sodium (Lovenox) 30 mg SUBCUT Q24H JUDIE Dextrose/Sodium Chloride (Dextrose 5%-1/2 Ns) 1,000 mls @ 150 mls/hr IV .CONTINUOUS PRN PRN Reason: Blood Glucose Last Admin: 08/18/19 06:38 Dose: 150 mls/hr Insulin Human Regular 100 unit (/ Sodium Chloride) 100 mls @ 7.48 mls/hr IV TITRATE JUDIE; Protocol Last Titration: 08/18/19 09:03 Dose: 0.1 units/kg/hr, 8 mls/hr Magnesium Sulfate (Magnesium Sulfate In Water Premix) 50 mls @ 25 mls/hr IV ONETIME PRN PRN Reason: low magnesium Last Admin: 08/17/19 23:22 Dose: 25 mls/hr Sodium Phosphate 60 mmole/ (Sodium Chloride) 270 mls @ 62.5 mls/hr IV ONETIME PRN PRN Reason: Low phophorus Last Admin: 08/18/19 05:56 Dose: 62.5 mls/hr Potassium Chloride 20 meq/Lidocaine HCl 2 ml/ Sodium Chloride 112 mls @ 56 mls/ hr IV ONETIME ONE Stop: 08/18/19 10:14 Last Admin: 08/18/19 08:35 Dose: 56 mls/hr Ondansetron HCl (Zofran) 4 mg IV Q4H PRN PRN Reason: Nausea/Vomiting Last Admin: 08/18/19 03:30 Dose: 4 mg Oxycodone HCl (Oxycodone) 5 mg PO Q4H PRN PRN Reason: Pain (moderate 4-6) Pantoprazole Sodium (Protonix) 40 mg PO ACBREAKFAST JUDIE Last Admin: 08/18/19 08:11 Dose: 40 mg Polyethylene Glycol (Miralax) 17 gm PO DAILY PRN PRN Reason: Constipation Potassium Chloride (Potassium Chloride Solution) 20 meq PO NOW PRN PRN Reason: Hypokalemia Last Admin: 08/18/19 03:21 Dose: 20 meq Potassium Chloride (Potassium Chloride Solution) 40 meq PO NOW PRN PRN Reason: Hypokalemia Last Admin: 08/17/19 23:22 Dose: 40 meq Potassium Chloride (Potassium Chloride Solution) 40 meq PO Q2H PRN PRN Reason: Hypokalemia Discontinued Medications Enoxaparin Sodium (Lovenox) 30 mg SUBCUT DAILY [facility] Last Admin: 08/17/19 17:38 Dose: 30 mg Sodium Chloride (Normal Saline) 1,000 mls @ 500 mls/hr IV ASDIRECTED JUDIE Last Admin: 08/17/19 14:16 Dose: 500 mls/hr Lactated Ringer's (Ringers, Lactated) 1,000 mls @ 500 mls/hr IV ASDIRECTED JUDIE Last Admin: 08/17/19 14:48 Dose: 500 mls/hr Insulin Human Regular 100 unit (/ Sodium Chloride) 100 mls @ 7.48 mls/hr IV TITRATE JUDIE; Protocol Last Titration: 08/17/19 22:00 Dose: 0.37 units/kg/hr, 28.3 mls/hr Sodium Chloride (Normal Saline) 2,000 mls @ 500 mls/hr IV .CONTINUOUS PRN PRN Reason: Blood Glucose Last Admin: 08/17/19 20:44 Dose: 250 mls/hr Potassium Chloride 20 meq/ (Premix) 0 mls @ 50 mls/hr IV Q2H JUDIE Stop: 08/18/19 07:32 Last Admin: 08/18/19 08:29 Dose: Not Given Influenza Virus Vaccine (Pharmacy To Dose - Influenza Vaccine) 1 each IM ONETIME ONE Stop: 08/17/19 13:56 Last Admin: 08/17/19 19:21 Dose: Not Given Influenza Virus Vaccine (Fluzone High-Dose 2019-20 Syringe) 180 mcg IM .ONCE ONE Stop: 08/17/19 14:01 Last Admin: 08/17/19 19:22 Dose: Not Given Insulin Human Regular (Humulin R) Confirm Administered Dose 300 unit .ROUTE .STK -MED ONE Stop: 08/18/19 04:08 Last Admin: 08/18/19 04:24 Dose: Not Given Lidocaine HCl (Xylocaine-Mpf 1%) 2 ml INJECT ONETIME ONE Stop: 08/18/19 05:32 Last Admin: 08/18/19 06:05 Dose: 2 ml Pantoprazole Sodium (Protonix) 40 mg PO DAILY [facility] Last Admin: 08/17/19 17:39 Dose: 40 mg Potassium Chloride (Potassium Chloride Solution) Confirm Administered Dose 20 meq .ROUTE .STK-MED ONE Stop: 08/18/19 03:19 Last Admin: 08/18/19 03:24 Dose: Not Given - Exam Quality Assessment: DVT Prophylaxis General: Alert, Oriented, Cooperative, Mild Distress Lungs: Clear to Auscultation, Normal Respiratory Effort, Decreased Breath Sounds Cardiovascular: Regular Rate, Regular Rhythm, No Murmurs GI/Abdominal Exam: Soft, Non-Tender, No Organomegaly, No Distention Extremities: Non-Tender, No Pedal Edema - Problem List Review Problem List Initiated/Reviewed/Updated: Yes - My Orders Last 24 Hours: My Active Orders 08/17/19 16:13 Resuscitation Status Routine 08/17/19 16:44 Patient Status [ADT] Routine Ambulate [RC] QID Blood Glucose Check, Bedside [RC] Q1H Cardiac Monitoring [RC] Q6H Diabetes Education [RC] Click to Edit Height and Weight [RC] DAILY Intake and Output [RC] QSHIFT Notify Provider Laboratory Res [RC] ASDIRECTED Notify Provider Laboratory Res [RC] ASDIRECTED Notify Provider Laboratory Res [RC] ASDIRECTED Notify Provider Laboratory Res [RC] ASDIRECTED Notify Provider Vital Signs [RC] ASDIRECTED Oxygen Therapy [RC] PRN RT Aerosol Therapy [RC] ASDIRECTED Up With Assistance [RC] ASDIRECTED Up to Chair [RC] QID Vital Signs [RC] Q1H Acetaminophen [Tylenol] 650 mg PO Q4H PRN Albuterol [Proventil Neb Soln] 2.5 mg NEB Q4H PRN Dextrose 5%-0.45% NaCl [Dextrose 5%-1/2 NS] 1,000 ml IV .CONTINUOUS Dextrose 50% in Water 50 ml IVPUSH ONETIME PRN Insulin Regular, Human [HumuLIN R] 100 unit Sodium Chloride 0.9% [Normal Saline] 100 ml IV TITRATE Magnesium Sulfate/Water [Magnesium Sulfate in Water Premix] 50 ml IV ONETIME Ondansetron [Zofran] 4 mg IV Q4H PRN Polyethylene Glycol 3350 [MiraLAX] 17 gm PO DAILY PRN Potassium Chloride [Potassium Chloride Solution] 20 meq PO NOW PRN Potassium Chloride [Potassium Chloride Solution] 40 meq PO NOW PRN Potassium Chloride [Potassium Chloride Solution] 40 meq PO Q2H PRN Sodium Phosphate 60 mmole Sodium Chloride 0.9% [Normal Saline] 250 ml IV ONETIME oxyCODONE 5 mg PO Q4H PRN Medication Continuation Instructions [OM.PC] ASDIRECTED Medication Discontinuation Instructions [OM.PC] ASDIRECTED 08/17/19 Lunch Consistent Carbohydrate Diet [DIET] 08/18/19 07:30 Pantoprazole [ProTONIX] 40 mg PO ACBREAKFAST 08/18/19 08:15 Potassium Chloride 20 meq Lidocaine 1% [Xylocaine 1%] 2 ml Sodium Chloride 0.9 % [Normal Saline] 100 ml IV ONETIME 08/18/19 10:44 MAGNESIUM [CHEM] Q6H PHOSPHORUS [CHEM] Q6H POTASSIUM,K [CHEM] Q2H 08/18/19 12:44 BASIC METABOLIC PANEL,BMP [CHEM] Q4H 08/18/19 14:44 POTASSIUM,K [CHEM] Q2H 08/18/19 17:30 Enoxaparin [Lovenox] 30 mg SUBCUT Q24H 08/19/19 05:00 BASIC METABOLIC PANEL,BMP [CHEM] Timed MAGNESIUM [CHEM] Timed - Plan Plan:: ASSESSMENT AND PLAN DIABETIC KETOACIDOSIS-history of type 1 diabetes mellitus, blood sugars under better control, ketoacidosis significantly improved -IV insulin per ketoacidosis protocol -Electrolyte management per ketoacidosis protocol -IV fluids per protocol -Transition to subcutaneous insulin later today ACUTE KIDNEY INJURY-secondary to dehydration and ketoacidosis. Renal function significantly improved from admission -Continue to monitor renal function and urine output closely LACTIC ACIDOSIS-resolved DEPRESSION-patient and give a history of worsening depression, patient reports that he really does not care if he lives or dies. -Consider initiation of antidepressant therapy -Patient follow-up with psychology for counseling MAINTENANCE ISSUES -DVT prophylaxis; Lovenox 40 mg subcutaneous daily -GI prophylaxis; not indicated -[place] catheter; not indicated -Nutrition; consistent carb diet -Nicotine dependence; not required CODE STATUS-FULL CODE ADMISSION STATUS-patient will be admitted to inpatient status, expect at least a 2 night hospital stay for evaluation and management of problems as outlined above. At the time of this admission I do not reasonably expected evaluation and management of this problem will require more than a 96 hour hospital stay. DISPOSITION-anticipate discharge to home after the hospital stay. PRIMARY CARE PROVIDER-Dr. Cage
[2019-08-18] MEDS ORDERED: Potassium Chloride 20 MEQ in Premix Bag 1 BAG IV ONE (10:20)
[2019-08-18] MEDS ORDERED: Glucose Gel 15 GM in 37.5 GM Tube PO PRN (13:16)
[2019-08-18] MEDS ORDERED: 50% Dextrose in Water 50 ML Syringe IV PRN (13:16)
[2019-08-18] MEDS: Insulin Lispro 100 Unit/ML 3 ML KwikPen SUBCUT SCH ×2 (17:09→21:10)
[2019-08-18] MEDS ORDERED: Enoxaparin 30 MG/0.3 ML Syringe SUBCUT SCH (17:30)
[2019-08-18 18:02] VITALS: PULSE 92
[2019-08-18] MEDS ORDERED: Insulin Glargine,Human Rec. Analog 100 Units/ML 3 ML Pen SUBCUT SCH (21:00)
[2019-08-19] MEDS: Dextrose 5%-0.45% NaCl 1,000 ML IV PRN (02:28)
[2019-08-19] MEDS: Insulin Lispro 100 Unit/ML 3 ML KwikPen SUBCUT SCH (08:25)
[2019-08-19] MEDS: Pantoprazole 40 MG Tab.CR PO SCH (08:58)
[2019-08-19 09:22] VITALS: BP 132/61
[2019-08-19] MEDS ORDERED: Potassium Chloride 20 MEQ Tab.ER PO ONE (09:30)
--- NOTE | 2019-08-19 10:19 | PCM.DCSUM1 ---
Discharge Summary - Hospital Course Brief History: 74-year-old male with history of alcohol dependence, chronic back pain and type 1 diabetes mellitus who presented with nausea, vomiting, confusion and weakness. Workup in the emergency room revealed diabetic ketoacidosis and lactic acidosis. He was admitted to the intensive care unit for further management. Diagnosis: Stroke: No - Discharge Data Discharge Date: 08/19/19 Discharge Disposition: Home, Self-Care 01 Condition: Good - Referral to Home Health Primary Care Physician: PCP None - Discharge Diagnosis/Problem(s) (1) Acute renal insufficiency SNOMED Code(s): 109378545 ICD Code: N28.9 - DISORDER OF KIDNEY AND URETER, UNSPECIFIED Status: Acute (2) Diabetic keto-acidosis SNOMED Code(s): 960063820, 937356960 ICD Code: E13.10 - OTH DIABETES MELLITUS WITH KETOACIDOSIS WITHOUT COMA Status: Acute Qualifiers: Diabetes mellitus type: type 1 Diabetes mellitus complication detail: without coma Qualified Code(s): E10.10 - Type 1 diabetes mellitus with ketoacidosis without coma (3) Type 1 diabetes mellitus SNOMED Code(s): 59480788 ICD Code: E10.9 - TYPE 1 DIABETES MELLITUS WITHOUT COMPLICATIONS Status: Chronic Qualifiers: Diabetes mellitus complication status: with other specified complication Qualified Code(s): E10.69 - Type 1 diabetes mellitus with other specified complication - Patient Summary/Data Consults: Consultations 08/18/19 13:16 Consult to Diabetic Nurse Specialist [CONS] Urgent Comment: Physician Instructions: Hospital Course: Greg presented to the emergency room with weakness, confusion and nausea with vomiting. Workup in the emergency room revealed diabetic ketoacidosis with a blood sugar of nearly 800. His lactic acid level was greater than 5 and his bicarbonate level was 8. He had a very elevated anion gap level and a leukocytosis with a white blood cell count of 23,000. Also noted was a creatinine of 3.2 with a baseline of around 1. He was admitted to the intensive care unit and started on IV insulin as well as IV fluids and electrolyte supplementation. He was managed with the diabetic ketoacidosis protocol and overnight following admission had a significant improvement in his laboratory studies. His bicarbonate level returned to normal. His creatinine trended down fairly quickly. Anion gap normalized. Potassium level was mildly low and did require some supplementation. White blood cell count was improving as well. Blood sugars came down very quickly with the IV insulin. The day after admission the patient was transitioned to subcutaneous insulin in the evening. His nausea and vomiting have resolved. He does have some hiccups which I suspect are related to gastritis and the patient does have a history of this and esophagitis. After the transition to subcutaneous insulin he has continued to do well. He was able to eat some of his breakfast on the morning of discharge. Blood sugars have remained acceptable. He is planning to return to his usual insulin regimen which has been working fairly well for him. He reports that he does have insulin available at home and does not need a refill at this time. I encouraged him to utilize his proton pump inhibitor at least once and preferably twice daily for the next couple of weeks to help heal up when I suspect is some gastritis related to his poorly controlled diabetes. At the time of discharge he was considering transferring primary care but has not made a decision at this time. He tells me that he will be scheduling his own clinic follow-up after hospital discharge. We did not make any medication changes at the time of discharge but he was at least reporting to me that he will be taking his medications again. He is stable and safe for discharge home at this time. - Patient Instructions Diet: Diabetic Diet Activity: As Tolerated Showering/Bathing: May Shower Notify Provider of: Increased Pain, Nausea and/or Vomiting Other/Special Instructions: 1. You were in the hospital for management of diabetic ketoacidosis. Your condition has improved with IV fluids and IV insulin therapy provided in the hospital. I would recommend that you return to your usual insulin dosing regimen. 2. For your hiccups/reflux I recommend that you take omeprazole 40 mg once or twice daily for the next 2 weeks and then take it once daily until your symptoms resolve. Once your symptoms resolve you may take it as needed. 3. Follow up in 1-2 weeks. You could consider follow up with Dr Cowart at [place] or Dr Tesfaye or Dr Ellis at [facility] - Discharge Plan *PRESCRIPTION DRUG MONITORING PROGRAM REVIEWED*: Not Applicable *COPY OF PRESCRIPTION DRUG MONITORING REPORT IN PATIENT MODESTA: Not Applicable Home Medications: Home Meds Insulin Glarg,Human.Rec.Analog [Lantus Solostar] 20 - 22 units SQ BEDTIME [History] Insulin Lispro [HumaLOG] 4 - 6 unit SUBCNJ TID 09/07/17 [History] Oxygen Therapy Mode: Room Air Patient Handouts: Diabetic Ketoacidosis, Chronic Diarrhea, Chronic Back Pain Referrals: PCP,None [Primary Care Provider] - (f/u in 1-2 weeks ) - Discharge Summary/Plan Comment DC Time >30 min.: No - Patient Data Vitals - Most Recent: Last Vital Signs Temp 36.8 C 08/19/19 08:00 Pulse 92 08/18/19 18:00 Resp 12 08/19/19 08:00 BP 132/61 08/19/19 08:00 Pulse Ox 99 08/19/19 08:00 Weight - Most Recent: 57.155 kg I&O - Last 24 hours: Intake & Output 08/18/19 08/19/19 08/19/19 22:59 06:59 14:59 Intake Total 300 200 Output Total 500 1975 Balance -200 -1775 Lab Results - Last 24 hrs: Laboratory Results - last 24 hr 08/18/19 08/18/19 08/18/19 Range/Units 10:46 12:49 18:58 Sodium 145 140 (140-148) mmol/L Potassium 4.1 3.5 L 3.8 (3.6-5.2) mmol/L Chloride 113 H 110 H (100-108) mmol/L Carbon Dioxide 19 L 20 L (21-32) mmol/L Anion Gap 16.5 H 13.8 (5.0-14.0) mmol/L BUN 27 H 21 H (7-18) mg/dL Creatinine 1.4 H 1.2 (0.8-1.3) mg/dL Est Cr Clr Drug Dosing 38.56 44.98 mL/min Estimated GFR (MDRD) 50 L 60 (>60) Glucose 104 301 H (74-106) mg/dL Calcium 7.4 L 7.3 L (8.5-10.1) mg/dL Phosphorus 3.0 (2.5-4.9) mg/dL Magnesium 1.9 (1.8-2.4) mg/dL 08/19/19 Range/Units 04:20 Sodium 143 (140-148) mmol/L Potassium 3.1 L (3.6-5.2) mmol/L Chloride 110 H (100-108) mmol/L Carbon Dioxide 23 (21-32) mmol/L Anion Gap 13.1 (5.0-14.0) mmol/L BUN 12 (7-18) mg/dL Creatinine 0.9 (0.8-1.3) mg/dL Est Cr Clr Drug Dosing 59.98 mL/min Estimated GFR (MDRD) > 60 (>60) Glucose 209 H (74-106) mg/dL Calcium 7.7 L (8.5-10.1) mg/dL Phosphorus (2.5-4.9) mg/dL Magnesium 1.9 (1.8-2.4) mg/dL Med Orders - Current: Current Medications Acetaminophen (Tylenol) 650 mg PO Q4H PRN PRN Reason: Pain (Mild 1-3)/fever Albuterol (Proventil Neb Soln) 2.5 mg NEB Q4H PRN PRN Reason: Shortness Of Breath/wheezing Dextrose (Glutose 15) 15 gm PO ASDIRECTED PRN PRN Reason: Hypoglycemia Dextrose/Water (Dextrose 50% In Water) 50 ml IV ASDIRECTED PRN PRN Reason: Hypoglycemia Enoxaparin Sodium (Lovenox) 30 mg SUBCUT Q24H [facility] Last Admin: 08/18/19 17:13 Dose: 30 mg Dextrose/Sodium Chloride (Dextrose 5%-1/2 Ns) 1,000 mls @ 150 mls/hr IV .CONTINUOUS PRN PRN Reason: Blood Glucose Last Admin: 08/19/19 02:28 Dose: 150 mls/hr Insulin Glargine (Lantus Solostar) 20 units SUBCUT BEDTIME [facility] Last Admin: 08/18/19 21:09 Dose: 20 units Insulin Human Lispro (Humalog) 0 unit SUBCUT QIDACANDBED [facility]; Protocol Last Admin: 08/19/19 08:25 Dose: Not Given Ondansetron HCl (Zofran) 4 mg IV Q4H PRN PRN Reason: Nausea/Vomiting Last Admin: 08/18/19 03:30 Dose: 4 mg Oxycodone HCl (Oxycodone) 5 mg PO Q4H PRN PRN Reason: Pain (moderate 4-6) Pantoprazole Sodium (Protonix) 40 mg PO ACBREAKFAST [facility] Last Admin: 08/19/19 08:58 Dose: 40 mg Polyethylene Glycol (Miralax) 17 gm PO DAILY PRN PRN Reason: Constipation Discontinued Medications Dextrose/Water (Dextrose 50% In Water) 50 ml IVPUSH ONETIME PRN PRN Reason: Blood Glucose Enoxaparin Sodium (Lovenox) 30 mg SUBCUT DAILY JUDIE Last Admin: 08/17/19 17:38 Dose: 30 mg Sodium Chloride (Normal Saline) 1,000 mls @ 500 mls/hr IV ASDIRECTED JUDIE Last Admin: 08/17/19 14:16 Dose: 500 mls/hr Lactated Ringer's (Ringers, Lactated) 1,000 mls @ 500 mls/hr IV ASDIRECTED JUDIE Last Admin: 08/17/19 14:48 Dose: 500 mls/hr Insulin Human Regular 100 unit (/ Sodium Chloride) 100 mls @ 7.48 mls/hr IV TITRATE JUDIE; Protocol Last Titration: 08/17/19 22:00 Dose: 0.37 units/kg/hr, 28.3 mls/hr Insulin Human Regular 100 unit (/ Sodium Chloride) 100 mls @ 7.48 mls/hr IV TITRATE JUDIE; Protocol Last Titration: 08/18/19 11:04 Dose: 0 units/kg/hr, 0 mls/hr Magnesium Sulfate (Magnesium Sulfate In Water Premix) 50 mls @ 25 mls/hr IV ONETIME PRN PRN Reason: low magnesium Last Admin: 08/17/19 23:22 Dose: 25 mls/hr Sodium Chloride (Normal Saline) 2,000 mls @ 500 mls/hr IV .CONTINUOUS PRN PRN Reason: Blood Glucose Last Admin: 08/17/19 20:44 Dose: 250 mls/hr Sodium Phosphate 60 mmole/ (Sodium Chloride) 270 mls @ 62.5 mls/hr IV ONETIME PRN PRN Reason: Low phophorus Last Admin: 08/18/19 05:56 Dose: 62.5 mls/hr Potassium Chloride 20 meq/ (Premix) 0 mls @ 50 mls/hr IV Q2H JUDIE Stop: 08/18/19 07:32 Last Admin: 08/18/19 08:29 Dose: Not Given Potassium Chloride 20 meq/Lidocaine HCl 2 ml/ Sodium Chloride 112 mls @ 56 mls/ hr IV ONETIME ONE Stop: 08/18/19 10:14 Last Admin: 08/18/19 08:35 Dose: 56 mls/hr Potassium Chloride 20 meq/Lidocaine HCl 2 ml/ Sodium Chloride 112 mls @ 56 mls/ hr IV ONETIME ONE Stop: 08/18/19 12:44 Last Admin: 08/18/19 10:53 Dose: 56 mls/hr Influenza Virus Vaccine (Pharmacy To Dose - Influenza Vaccine) 1 each IM ONETIME ONE Stop: 08/17/19 13:56 Last Admin: 08/17/19 19:21 Dose: Not Given Influenza Virus Vaccine (Fluzone High-Dose 2019-20 Syringe) 180 mcg IM .ONCE ONE Stop: 08/17/19 14:01 Last Admin: 08/17/19 19:22 Dose: Not Given Insulin Human Regular (Humulin R) Confirm Administered Dose 300 unit .ROUTE .STK -MED ONE Stop: 08/18/19 04:08 Last Admin: 08/18/19 04:24 Dose: Not Given Lidocaine HCl (Xylocaine-Mpf 1%) 2 ml INJECT ONETIME ONE Stop: 08/18/19 05:32 Last Admin: 08/18/19 06:05 Dose: 2 ml Pantoprazole Sodium (Protonix) 40 mg PO DAILY JUDIE Last Admin: 08/17/19 17:39 Dose: 40 mg Potassium Chloride (Potassium Chloride Solution) 20 meq PO NOW PRN PRN Reason: Hypokalemia Last Admin: 08/18/19 03:21 Dose: 20 meq Potassium Chloride (Potassium Chloride Solution) 40 meq PO NOW PRN PRN Reason: Hypokalemia Last Admin: 08/17/19 23:22 Dose: 40 meq Potassium Chloride (Potassium Chloride Solution) 40 meq PO Q2H PRN PRN Reason: Hypokalemia Potassium Chloride (Potassium Chloride Solution) Confirm Administered Dose 20 meq .ROUTE .STK-MED ONE Stop: 08/18/19 03:19 Last Admin: 08/18/19 03:24 Dose: Not Given Potassium Chloride (Klor-Con M20) 40 meq PO ONETIME ONE Stop: 08/19/19 09:31 - Exam Quality Assessment: Denies: Supplemental Oxygen General: Reports: Alert, Oriented, Cooperative, No Acute Distress Lungs: Reports: Normal Respiratory Effort GI/Abdominal Exam: Soft, No Distention Extremities: No Pedal Edema Psy/Mental Status: Reports: Alert, Normal Affect
== END 2019-08-19 11:05 | disposition home or self-care (01) | DRG 638 ==
LOC: JP.ED 13:31 → JP.ICU 16:11
PROVIDERS: ADMIT Hospitalist; ATTEND Internal Medicine
DX: E10.10 Type 1 diabetes mellitus with ketoacidosis without coma (principal); N17.9 Acute kidney failure, unspecified; E10.69 Type 1 diabetes mellitus with other specified complication; E87.6 Hypokalemia; K29.70 Gastritis, unspecified, without bleeding; H54.7 Unspecified visual loss; F41.9 Anxiety disorder, unspecified; F32.9 Major depressive disorder, single episode, unspecified; E86.0 Dehydration; M54.9 Dorsalgia, unspecified; G89.29 Other chronic pain; Z88.1 Allergy status to other antibiotic agents; Z88.5 Allergy status to narcotic agent
CPT/HCPCS: 36415; 71045; 80048; 81001; 82009; 82962; 83036; 83605; 83735; 83880; 84100; 84132; 85025; 93005; 96360; 96361; 99285-25; A9270-GY; J1650; J1815; J1815-GY; J2001; J2405; J3475; J3480; J7030; J7050; J7120

== ENCOUNTER 2019-09-06 10:00 | Emergency (ER) | payer MEDICARE, OTHER ==
[2019-09-06] MEDS ORDERED: 50% Dextrose in Water 50 ML Syringe IVPUSH ONE (10:07)
--- NOTE | 2019-09-06 10:16 | EDM.PDOC ---
ED HPI GENERAL MEDICAL PROBLEM - General Stated Complaint: DIABETIC LOW BLOOD SUGARS Time Seen by Provider: 09/06/19 10:01 Source of Information: Reports: Patient, Family History Limitations: Reports: Altered Mental Status - History of Present Illness INITIAL COMMENTS - FREE TEXT/NARRATIVE: 74-year-old male with insulin-dependent diabetes presents with hypoglycemia. He missed his breakfast this morning, was on his way to a doctor appointment when he admitted to his that he "shouldn't be driving". He then told her that his blood glucose was 35 prior to leaving the house. She had him walk over to the passenger seat, and drove the [place] [address] to the clinic. However when arriving to the clinic his mental status decreased and he was unable to get out of the vehicle and went partially unresponsive and became diaphoretic. The clinic then instructed them to come to the emergency room. He needed to be physically lifted into a wheelchair to be brought into the emergency room. His eyes were open, he was alert but obviously struggling with significant mental status depression and unable to speak or answer questions. Onset: Gradual Duration: Hour(s): (Symptoms have worsened over the past hour) Associated Symptoms: Reports: Confusion Back Pain Score (Numeric/FACES): 3 - Related Data Allergies Allergy/AdvReac Type Severity Reaction Status Date / Time cephalexin monohydrate Allergy Unknown Hives Verified 09/06/19 10:18 [From Keflex] codeine AdvReac Unknown Vomiting Verified 09/06/19 10:18 Home Meds: Home Meds Insulin Glarg,Human.Rec.Analog [Lantus Solostar] 16 - 20 units SQ BEDTIME [History] Insulin Lispro [HumaLOG] 4 - 6 unit SUBCNJ TID 09/07/17 [History] Past Medical History HEENT History: Reports: Impaired Vision Musculoskeletal History: Reports: Osteoarthritis, Other (See Below) Other Musculoskeletal History: right sciatic pain Psychiatric History: Reports: Anxiety, Depression Endocrine/Metabolic History: Reports: Diabetes, Type I - Infectious Disease History Infectious Disease History: Reports: Chicken Pox, Measles, Mumps Social & Family History - Caffeine Use Caffeine Use: Reports: Coffee ED ROS GENERAL - Review of Systems Review Of Systems: See Below (Initially unable to be obtained, after IV glucose however the patient explaining that he's been fine. No complaints) Respiratory: Reports: No Symptoms GI/Abdominal: Reports: No Symptoms Skin: Reports: Diaphoresis Neurological: Reports: Confusion ED EXAM, GENERAL - Physical Exam Exam: See Below Exam Limited By: Altered Mental Status General Appearance: Obtunded Head: Atraumatic Respiratory/Chest: No Respiratory Distress Cardiovascular: Regular Rate, Rhythm Neurological: Inattentive Skin Exam: Diaphoretic Course - Vital Signs Last Recorded V/S: Last Vital Signs Temp 97.4 F 09/06/19 10:25 Pulse 85 09/06/19 10:25 Resp 13 09/06/19 10:25 BP 155/73 H 09/06/19 10:25 Pulse Ox 96 09/06/19 10:25 - Orders/Labs/Meds Meds: Medications Discontinued Medications Generic Name Dose Route Start Last Admin Trade Name Ros PRN Reason Stop Dose Admin Dextrose/Water 50 ml 09/06/19 10:07 09/06/19 10:07 Dextrose 50% In Water IVPUSH 09/06/19 10:08 50 ml ONETIME ONE Administration Dextrose/Lactated Ringer's 500 mls @ 500 mls/hr 09/06/19 10:15 09/06/19 10:10 Dextrose 5%-Lr IV 500 mls/hr ASDIRECTED JUDIE Administration - Re-Assessments/Exams Free Text/Narrative Re-Assessment/Exam: 09/06/19 10:16 an IV was urgently started, the patient was given 1 amp of D50. This was after a [id number] glucose revealed 21. He rapidly resumed his a slight mental status within 30 seconds. D5LR was then started at 500 mL an hour. The patient is insistent that he has not had any extra insulin but he missed his breakfast this morning. He would still like to keep his doctor appointment at [place]. 09/06/19 10:43 Recheck glucose 30 minutes after arrival to the emergency room is 151. He remained alert and oriented and was anxious to be discharged. Departure - Departure Time of Disposition: 11:02 Disposition: Home, Self-Care 01 Clinical Impression: Hypoglycemia - Discharge Information Instructions: Hypoglycemia, [id number] Referrals: PCP,None [Primary Care Provider] - Forms: ED Department Discharge Care Plan Goals: Keep your appointment this afternoon with Dr. Cowart to discuss any changes in your diabetic treatment to avoid further hypoglycemic episodes.
[2019-09-06 10:26] VITALS: BP 155/73; PULSE 85
--- OUTSIDE RECORDS SUMMARY | 2019-09-09 09:18 | XMSREPORT | Referral Summary ---
:1945 Author Organization [facility] and [facility] Address [address] [place] [address] [address] [place] [address] Care Team Providers Name Role Phone Juan Diego Alegria MD Primary Care Provider [facility] RESOURCE Unavailable Provider, No Attributed RESOURCE Attributed Provider Unavailable Reason for Referral Transitions of Care (Routine) Status Reason Specialty Diagnoses / Referred By Referred To Procedures Contact Contact New Request Service Not Diagnoses Chronic low back pain, unspecified back pain laterality, unspecified whether sciatica present Brennen Cowart, Available at MD [facility] [address] [facility], [address] RESOURCE Phone: [phone] Fax: [place] [address] [place] [address] Transitions of Care (Routine) Status Reason Specialty Diagnoses / Referred By Referred To Procedures Contact Contact New Request Patient Diagnoses Controlled type 2 diabetes mellitus without complication, with long-term current use of insulin (HCC) Brennen Cowart Chi Preference D, MD [facility], [address] [place], [place] [address] [address] Phone: [place] [phone] [place] [address] Fax: Reason for Visit Reason Comments Establish Care hospital follow up Encounter Details Date Type Department Care Team Description 09/06/2019 Office Visit [facility] Brennen Reed, Controlled type 2 diabetes mellitus without complication, with long-term current use of insulin (HCC) (Primary Dx); Clinic Family Medicine MD Chronic low back pain, unspecified back pain laterality, unspecified whether sciatica present [address] [place] [address] HUSSEIN HWANG [phone] [phone] Allergies Active Allergy Reactions Severity Noted Date Comments Cephalosporins Anaphylaxis (High), Hives (High) High 09/07/2017 documented as of this encounter (statuses as of 09/06/2019) Medications Medication Sig Dispensed Refills Start Date End Date Status insulin glargine 20 to 25 units at 0 09/09/2017 Active (LANTUS) subcutaneous bedtime - goal injection (vial) morning sugars between 80 to 160 insulin lispro Use 2 to 3 units 5 pen 0 09/09/2017 Active (HUMALOG) 100 unit/mL per each carb subcutaneous injection count/point per (pen) meal - and per sliding scale provided traZODone (DESYREL) 50 Take 1-2 tablets 0 09/09/2017 Active mg tablet (50-100 mg) by mouth At bedtime as needed for other (Specify) (to help sleep) aspirin 81 mg enteric Take 1 tablet (81 30 tablet 0 09/09/2017 Active coated mg) by mouth 1 tabletIndications: time per day Start Type 2 diabetes in 1 week's time mellitus with if no hyperglycemia, with abdominal/stomach long-term current use pain of insulin (HCC) documented as of this encounter (statuses as of 09/06/2019) Active Problems Problem Noted Date Type 2 diabetes mellitus with hyperglycemia 09/09/2017 Hematemesis 09/09/2017 Non-intractable vomiting with nausea 09/09/2017 EYAD (acute kidney injury) 09/09/2017 Volume depletion 09/09/2017 Acute pancreatitis 09/09/2017 DKA (diabetic ketoacidoses) 09/07/2017 documented as of this encounter (statuses as of 09/06/2019) Social History Tobacco Use Types Packs/Day Years Used Date Former Smoker Quit: 09/08/2009 Smokeless Tobacco: Former User Alcohol Use Drinks/Week oz/Week Comments Yes 12 Cans of beer 12.0 Sex Assigned at Date Recorded Not on file Job Start Date Occupation Industry Not on file Not on file Not on file Travel History Travel Start Travel End No recent travel history available. documented as of this encounter Last Filed Vital Signs Vital Sign Reading Time Taken Comments Blood Pressure 134/66 09/06/2019 1:16 PM CDT Pulse 103 09/06/2019 1:16 PM CDT Temperature 36.7 C (98 F) 09/06/2019 1:16 PM CDT Respiratory Rate - - Oxygen Saturation 99% 09/06/2019 1:16 PM CDT Inhaled Oxygen Concentration - - Weight 57.8 kg (127 lb 6.4 oz) 09/06/2019 1:16 PM CDT Height - - Body Mass Index 18.81 09/07/2017 4:14 PM CDT documented in this encounter Functional Status Functional Status Response Date of Assessment Is the person deaf or does he/she have serious difficulty No 09/07/2017 hearing? Is this person blind or does he/she have difficulty Yes 09/07/2017 seeing even when wearing glasses? Do you have difficulty with walking, balance, climbing Yes 09/07/2017 stairs, or had a fall in the last 3 months? Does the patient have difficulty dressing or bathing? No 09/07/2017 Because of a physical, mental, or emotional condition; No 09/07/2017 does this person have difficulty doing errands alone such as visiting a doctor's office or shopping? Cognitive Status Response Date of Assessment Because of a physical, mental, or emotional condition; No 09/07/2017 does this person have serious difficulty concentrating, remembering, or making decisions? documented as of this encounter Progress Notes Brennen Cowart MD - 09/06/2019 1:53 PM CDT Assessment / Plan Controlled type 2 diabetes mellitus without complication, with long-term current use of insulin ([facility]) - CLINIC REFERRAL DIABETES EDUCATION NON ONE CHART - BASIC METABOLIC PANEL; Future Plan: 1will refer to clinical nurse educator at [facility] to try to get some semblance of regularity with the diabetes diet and reeducate him on this along with the insulin use. With time being we'll leave him on 8 units of Lantus and Humalog. His old sliding scale when he does eat which is perhaps once daily only 2we'll set up Center for pain management consult regarding pain management options for him. 3will plan a follow-up after his diabetes Center review. I've asked him to call me with his sugars if he is having questions or sugars that he doesn't know what to do with. 4we stressed the importance of backing off the beer and difficulty with managing his carbs and sugar control properly with that in play. Time spent was approximately 30 minutes, the majority spent in counseling of the above issues. Medications Outpatient Medications Prior to Visit Medication Sig Dispense Refill insulin glargine (LANTUS) subcutaneous injection (vial) 20 to 25 units at bedtime - goal morningsugars between 80 to 160 0 insulin lispro (HUMALOG) 100 unit/mL subcutaneous injection (pen) Use 2 to 3 units per each carbcount/point per meal - and per sliding scale provided 5 pen 0 traZODone (DESYREL) 50 mg tablet Take 1-2 tablets (50-100 mg) by mouth At bedtime as needed for other (Specify) (to help sleep) 0 aspirin 81 mg enteric coated tablet Take 1 tablet (81 mg) by mouth 1 time per day Start in 1 week's time if no abdominal/stomach pain 30 tablet 0 No facility-administered medications prior to visit. Allergies Allergies Allergen Reactions Cephalosporins Anaphylaxis (High) and Hives (High) Problem List Patient Active Problem List Diagnosis DKA (diabetic ketoacidoses) (HCC) Type 2 diabetes mellitus with hyperglycemia (HCC) Hematemesis Non-intractable vomiting with nausea EYAD (acute kidney injury) (HCC) Volume depletion Acute pancreatitis History This gentleman presents today to believe to meet the to see if the he wants to see me for his medical care. He has a long history of type 2 diabetes which has been poorly controlled for the most part due to the patient's resistance to following a diabetic diet and cooperating with the treatment regimens for the most part. He has been hospitalized twice in the last 2 years for DKA, most recently 2 weeks ago. He states hestopped taking his insulin altogether for 3-4 weeks prior in part because he states he was just tired of living. He states he has chronic back and hip pain she's been going on for years. It appears he is had a lot of attention to that with MRIs in 2011 and 2014. Nothing surgical at that time. He has x-rays which have shown some significant degenerative arthritis. Consequently he has been using alcohol to help with the pain. He has been on pills in the past and he states he doesn't want to be on any pills for his pain. He did get 1 injection once he states that seemed to last for about a year. It doesn't appear that he's been through a pain clinic at this point Last night he took 8 units of Lantus and did not eat breakfast this morning and his sugars I Were down in the 30s. He spent an hour or 2 in the emergency room getting his sugars up with D50 and IV fluids and then presented later this afternoon here. His blood sugar at discharge from the emergency room was 150. In talking with Raulito, he seems fairly resistant to doing the things he may need to do from a diet andexercise standpoint to develop some consistency in his caloric intake and output 2 allow proper establishment of an insulin regimen. We spent some of the visit arguing with a reactive type I or type II. We discussed the difference and how that works. We spent much of our visit going through some of his old records. I could not find reports on his MRIs as they are at [facility] and we will look into those. It appears that his issues are primarily significant degenerative changes in the back and hips. We discussed at some length consideration of chronic pain clinic consult to look at injection therapy options. He is amenable to that We also spent much of her visit counseling on the importance of getting in with the clinical nurse educator to establish a plan regarding some semblance of regularity with diet and how best to adjust his insulin to his needs. This will require regular testing of his blood sugars and I have encouraged him to start keeping a record of his sugars so we can get a sense of what his insulin requirements will be. Physical Exam BP 134/66 Pulse 103 Temp 98 F (36.7 C) (Temporal) Wt 57.8 kg (127 lb 6.4 oz) SpO2 99% BMI 18.81 kg/m2|| Heartregular Lungsclear No formal examination was done otherwise today. His color is good he does not appear acutely ill this time. He feels reasonably good at the presenttime. documented in this encounter Plan of Treatment Name Type Priority Associated Diagnoses Order Schedule BASIC METABOLIC PANEL Lab Routine Controlled type 2 diabetes Expected: mellitus without (Approximate), Expires: complication, with 10/06/2020 long-term current use of insulin (HCC) Name Type Priority Associated Diagnoses Order Schedule CLINIC REFERRAL Referral Routine Controlled type 2 Ordered: 09/06/2019 DIABETES EDUCATION NON diabetes mellitus ONE CHART without complication, with long-term current use of insulin (HCC) CLINIC REFERRAL PAIN Referral Routine Chronic low back pain, Ordered: 09/06 CLINIC NON ONE CHART unspecified back pain laterality, unspecified whether sciatica present documented as of this encounter Visit Diagnoses Diagnosis Controlled type 2 diabetes mellitus without complication, with long-term current use of insulin (HCC) - Primary Chronic low back pain, unspecified back pain laterality, unspecified whether sciatica present documented in this encounter"
== END 2019-09-06 11:02 | disposition home or self-care (01) ==
LOC: JP.ED 10:00
DX: E10.649 Type 1 diabetes mellitus with hypoglycemia without coma (principal); Z88.1 Allergy status to other antibiotic agents; Z88.5 Allergy status to narcotic agent; Z79.4 Long term (current) use of insulin
CPT/HCPCS: 82962; 96360; 99284; A4216

== ENCOUNTER 2019-10-24 19:58 | Emergency (ER) | payer OTHER ==
[2019-10-24 20:41] VITALS: BP 152/95; PULSE 126
--- NOTE | 2019-10-24 21:00 | EDM.PDOC ---
ED HPI GENERAL MEDICAL PROBLEM - General Chief Complaint: General Stated Complaint: DEHYDRATED, NOT ABLE TO EAT Time Seen by Provider: 10/24/19 20:54 Source of Information: Reports: Patient History Limitations: Reports: No Limitations - History of Present Illness INITIAL COMMENTS - FREE TEXT/NARRATIVE: Patient presents describing 6 days now of upper abdominal pain, vomiting, early satiety, fatigue and malaise. He is not sure why this is come on. He is a diabetic and does take insulin however he doesn't use it regularly nor does he check his blood sugar regularly. He currently does not have a primary care provider. He previously saw one doctor for an extended time period that since his senior care, has not found someone that he has been satisfied with. He came in tonight because he has continued to gradually worsen each day. His states that he has had previous admissions for ketoacidosis although patient states that his blood glucose this morning was in the 140 range. The most annoying symptom at this time is the nausea and intermittent vomiting. Even drinking liquids, he may vomit those even if the amount ingested a small. He has chronic back pain and reports that he does drink 12 beers daily to help with that but denies any recent alcohol ingestion. Onset: Gradual Duration: Day(s): (6), Getting Worse Location: Reports: Abdomen Quality: Reports: Burning, Dull Severity: Moderate Improves with: Reports: None Worsens with: Reports: Eating Associated Symptoms: Reports: Malaise, Nausea/Vomiting. Denies: Fever/Chills generalized abd pain Pain Score (Numeric/FACES): 2 - Related Data Allergies Allergy/AdvReac Type Severity Reaction Status Date / Time cephalexin monohydrate Allergy Unknown Hives Verified 10/24/19 20:44 [From Keflex] codeine AdvReac Unknown Vomiting Verified 10/24/19 20:44 Home Meds: Home Meds Insulin Glarg,Human.Rec.Analog [Lantus Solostar] 16 - 20 units SQ BEDTIME [History] Insulin Lispro [HumaLOG] 4 - 6 unit SUBCNJ TID 09/07/17 [History] Past Medical History HEENT History: Reports: Impaired Vision Musculoskeletal History: Reports: Osteoarthritis, Other (See Below) Other Musculoskeletal History: right sciatic pain Psychiatric History: Reports: Anxiety, Depression Endocrine/Metabolic History: Reports: Diabetes, Type I - Infectious Disease History Infectious Disease History: Reports: Chicken Pox, Measles, Mumps Social & Family History - Caffeine Use Caffeine Use: Reports: Coffee ED ROS GENERAL - Review of Systems Review Of Systems: See Below Constitutional: Reports: Malaise, Weakness, Fatigue, Weight Loss. Denies: Fever , Chills HEENT: Reports: Other (Dry mouth) Respiratory: Denies: Shortness of Breath Cardiovascular: Denies: Chest Pain Endocrine: Reports: Fatigue, High Glucose, Low Glucose GI/Abdominal: Reports: Abdominal Pain (Upper abdominal pain). Denies: Black Stool, Bloody Stool, Constipation, Diarrhea : Reports: No Symptoms Musculoskeletal: Reports: Back Pain ED EXAM, GENERAL - Physical Exam Exam: See Below Free Text/Narrative:: This is a quiet gentleman sitting upright in the bed in room 4. He had vomited shortly before I came in the room a small amount of clear camilo-colored liquid. Exam Limited By: No Limitations General Appearance: Alert, No Apparent Distress Neck: Supple, Non-Tender Respiratory/Chest: Lungs Clear Cardiovascular: Regular Rate, Rhythm, Tachycardia GI/Abdominal: Soft, Tender (Mild upper abdominal pain.) Psychiatric: Flat Affect Course - Vital Signs Last Recorded V/S: Last Vital Signs Temp 36.4 C 10/24/19 20:40 Pulse 126 H 10/24/19 20:40 Resp 15 10/24/19 20:40 BP 152/95 H 10/24/19 20:40 Pulse Ox 98 10/24/19 20:40 - Orders/Labs/Meds Orders: Active Orders 24 hr Category Date Time Status Sodium Chloride 0.9% [Saline Flush] Med 10/24/19 21:18 Ordered 10 ml FLUSH ASDIRECTED PRN Saline Lock Insert [OM.PC] Routine Oth 10/24/19 21:18 Ordered Medication Orders Sodium Chloride (Saline Flush) 10 ml FLUSH ASDIRECTED PRN PRN Reason: Keep Vein Open Last Admin: 10/24/19 21:44 Dose: 10 ml Labs: Laboratory Tests 10/24/19 10/24/19 10/24/19 Range/Units 21:30 21:30 21:30 WBC 7.9 (4.5-11.0) K/uL RBC 5.73 (4.30-5.90) M/uL Hgb 17.3 H D (12.0-15.0) g/dL Hct 50.8 (40.0-54.0) % MCV 89 (80-98) fL MCH 30 (27-31) pg MCHC 34 (32-36) % Plt Count 234 (150-400) K/uL Neut % (Auto) 75 H (36-66) % Lymph % (Auto) 15 L (24-44) % [place] % (Auto) 9 H (2-6) % Eos % (Auto) 0 L (2-4) % Baso % (Auto) 1 (0-1) % Sodium 135 L (140-148) mmol/L Potassium 3.3 L (3.6-5.2) mmol/L Chloride 94 L (100-108) mmol/L Carbon Dioxide 18 L (21-32) mmol/L Anion Gap 26.3 H (5.0-14.0) mmol/L BUN 29 H D (7-18) mg/dL Creatinine 1.5 H D (0.8-1.3) mg/dL Est Cr Clr Drug Dosing 33.69 mL/min Estimated GFR (MDRD) 46 L (>60) Glucose 161 H (74-106) mg/dL Hemoglobin A1c (4.5-6.2) % Lactic Acid 3.0 H (0.4-2.0) mmol/L Calcium 9.4 D (8.5-10.1) mg/dL Total Bilirubin 0.8 (0.2-1.0) mg/dL AST 14 L (15-37) U/L ALT 18 (12-78) U/L Alkaline Phosphatase 102 (46-116) U/L C-Reactive Protein 0.00 (0.0-0.3) mg/dL Total Protein 8.0 (6.4-8.2) g/dL Albumin 4.6 (3.4-5.0) g/dL Globulin 3.4 (2.3-3.5) g/dL Albumin/Globulin Ratio 1.4 (1.2-2.2) Lipase 130 (73-393) U/L Urine Color (YELLOW) Urine Appearance (CLEAR) Urine pH (5.0-8.0) Ur Specific [place] (1.008-1.030) Urine Protein (NEGATIVE) mg/dL Urine Glucose (UA) (NEGATIVE) mg/dL Urine Ketones (NEGATIVE) mg/dL Urine Occult Blood (NEGATIVE) Urine Nitrite (NEGATIVE) Urine Bilirubin (NEGATIVE) Urine Urobilinogen (0.2-1.0) EU/dL Ur Leukocyte Esterase (NEGATIVE) Urine RBC (0-5) Urine WBC (0-5) Ur Epithelial Cells Amorphous Sediment Urine Bacteria Urine Mucus Urine Other Ethyl Alcohol mg/dL 10/24/19 10/24/19 10/24/19 Range/Units 21:30 21:30 23:08 WBC (4.5-11.0) K/uL RBC (4.30-5.90) M/uL Hgb (12.0-15.0) g/dL Hct (40.0-54.0) % MCV (80-98) fL MCH (27-31) pg MCHC (32-36) % Plt Count (150-400) K/uL Neut % (Auto) (36-66) % Lymph % (Auto) (24-44) % [place] % (Auto) (2-6) % Eos % (Auto) (2-4) % Baso % (Auto) (0-1) % Sodium (140-148) mmol/L Potassium (3.6-5.2) mmol/L Chloride (100-108) mmol/L Carbon Dioxide (21-32) mmol/L Anion Gap (5.0-14.0) mmol/L BUN (7-18) mg/dL Creatinine (0.8-1.3) mg/dL Est Cr Clr Drug Dosing mL/min Estimated GFR (MDRD) (>60) Glucose (74-106) mg/dL Hemoglobin A1c 9.0 H (4.5-6.2) % Lactic Acid (0.4-2.0) mmol/L Calcium (8.5-10.1) mg/dL Total Bilirubin (0.2-1.0) mg/dL AST (15-37) U/L ALT (12-78) U/L Alkaline Phosphatase (46-116) U/L C-Reactive Protein (0.0-0.3) mg/dL Total Protein (6.4-8.2) g/dL Albumin (3.4-5.0) g/dL Globulin (2.3-3.5) g/dL Albumin/Globulin Ratio (1.2-2.2) Lipase (73-393) U/L Urine Color Yellow (YELLOW) Urine Appearance Clear (CLEAR) Urine pH 6.0 (5.0-8.0) Ur Specific [place] 1.025 (1.008-1.030) Urine Protein 30 H (NEGATIVE) mg/dL Urine Glucose (UA) 500 H (NEGATIVE) mg/dL Urine Ketones 80 H (NEGATIVE) mg/dL Urine Occult Blood Negative (NEGATIVE) Urine Nitrite Negative (NEGATIVE) Urine Bilirubin Small H (NEGATIVE) Urine Urobilinogen 0.2 (0.2-1.0) EU/dL Ur Leukocyte Esterase Negative (NEGATIVE) Urine RBC 0-5 (0-5) Urine WBC 0-5 (0-5) Ur Epithelial Cells Few Amorphous Sediment Not seen Urine Bacteria Few Urine Mucus Few Urine Other Ethyl Alcohol < 3 mg/dL Meds: Medications Generic Name Dose Route Start Last Admin Trade Name Freq PRN Reason Stop Dose Admin Sodium Chloride 10 ml 10/24/19 21:18 10/24/19 21:44 Saline Flush FLUSH 10 ml ASDIRECTED PRN Administration Keep Vein Open Discontinued Medications Generic Name Dose Route Start Last Admin Trade Name Freq PRN Reason Stop Dose Admin Al Hydroxide/Mg Hydroxide 15 0 ml 10/25/19 00:26 10/25/19 00:35 ml/ Lidocaine HCl 15 ml PO 10/25/19 00:27 30 ml ONETIME ONE Administration Sodium Chloride 1,000 mls @ 500 mls/hr 10/24/19 21:18 10/24/19 21:41 Normal Saline IV 10/24/19 23:17 500 mls/hr .BOLUS ONE Administration Ondansetron HCl 4 mg 10/24/19 21:18 10/24/19 21:35 Zofran IVPUSH 10/24/19 21:19 4 mg ONETIME ONE Administration - Radiology Interpretation Free Text/Narrative:: Upright abdomen x-ray ordered and reviewed by me shows - Re-Assessments/Exams Free Text/Narrative Re-Assessment/Exam: 10/24/19 21:31 Patient will receive normal saline 1 L over 2 hours along with ondansetron 4 mg IV. He could have ketoacidosis. This could be alcohol withdrawal or some combination of both and or other conditions. The patient is a limited historian. 10/25/19 01:13 After fluids and ondansetron he feels better but still intermittently is having hiccups. He is consuming large amounts of alcohol over the last few weeks, he says because of his back pain. I discussed that HIS current symptoms are likely related to alcohol irritation of the stomach. The first thing to make him better is to stop drinking alcohol entirely. I recommend using liquid antacid of choice as needed for stomach returning. He will be given a prescription for omeprazole 20 mg. Also promethazine 25 mg to use as needed for nausea. He needs to drink clear liquids regularly over the next couple days to "fill up the tank. " I recommend he continue his search for a new primary care provider. With his medical conditions, he needs someone to help facilitate balancing those problems for him. Reasons to return to emergency department reviewed. Departure - Departure Time of Disposition: 00:45 Disposition: Home, Self-Care 01 Condition: Good Clinical Impression: Gastritis, Dehydration, mild, Hyperglycemia - Discharge Information *PRESCRIPTION DRUG MONITORING PROGRAM REVIEWED*: Not Applicable *COPY OF PRESCRIPTION DRUG MONITORING REPORT IN PATIENT MODESTA: Not Applicable Instructions: Gastritis, Adult, [id number], Dehydration, Adult, [id number] , Hyperglycemia, [id number] Referrals: PCP,None [Primary Care Provider] - Forms: ED Department Discharge Additional Instructions: I recommend not drinking alcohol any longer as I believe it's irritating your stomach and esophagus. Start omeprazole 20 mg and take it every night. Get some liquid antacid of choice and when you have burning in the stomach or esophagus, drink one quarter cup/4 tablespoons worth, as needed for burning. Use promethazine tablets as directed for nausea. Use insulin regularly to reduce the long-term problems of diabetes. Increase liquid intake over these next several days to help fill up the tank again. You need to find a new primary care provider that you are comfortable with to assist in managing these condition. They're out there somewhere. Sepsis Event Note - Evaluation Sepsis Screening Result: No Definite Risk - Focused Exam Vital Signs: Vital Signs Temp Pulse Resp BP Pulse Ox 10/24/19 20:40 36.4 C 126 H 15 152/95 H 98 10/24/19 20:37 36.4 C 126 H 15 152/95 H 98 Date Exam was Performed: 10/25/19 Time Exam was Performed: 01:13 - My Orders Last 24 Hours: My Active Orders 10/24/19 21:18 Sodium Chloride 0.9% [Saline Flush] 10 ml FLUSH ASDIRECTED PRN Saline Lock Insert [OM.PC] Routine - Assessment/Plan Last 24 Hours: My Active Orders 10/24/19 21:18 Sodium Chloride 0.9% [Saline Flush] 10 ml FLUSH ASDIRECTED PRN Saline Lock Insert [OM.PC] Routine
[2019-10-24] MEDS ORDERED: Sodium Chloride 0.9% 1,000 ML IV ONE (21:18)
[2019-10-24] MEDS ORDERED: Ondansetron 4 MG/2 ML SDV IVPUSH ONE (21:18)
[2019-10-24] MEDS ORDERED: Sodium Chloride 0.9% 10 ML Syringe FLUSH PRN (21:18)
--- NOTE | 2019-10-24 22:10 | CRLCR ---
INDICATION: Vomiting X6 days TECHNIQUE: Abdomen 1 view. COMPARISON: None FINDINGS: The lower pelvis was not included on the image. Bowel: Bowel pattern is normal. Soft tissues: No sign of free air. No sign of soft tissue mass. No suspicious calcifications. Bones: Unremarkable for age. IMPRESSION: Unremarkable abdomen. Dictated by Rolando Morris MD @ 10/24/2019 10:09:18 PM Dictated by: Rolando Morris MD @ 10/24/2019 22:09:26 (Electronically Signed)
[2019-10-25] MEDS ORDERED: Alum Hydrox/Mag Hydrox/Simeth 15 ML, Lidocaine 2% 15 ML PO ONE ×2 (00:26)
== END 2019-10-25 01:21 | disposition home or self-care (01) ==
LOC: JP.ED 19:58
DX: E86.0 Dehydration (principal); K29.70 Gastritis, unspecified, without bleeding; E10.65 Type 1 diabetes mellitus with hyperglycemia; Z79.4 Long term (current) use of insulin; Z88.1 Allergy status to other antibiotic agents; Z88.5 Allergy status to narcotic agent
CPT/HCPCS: 36415; 74018; 80053; 80320; 81001; 83036; 83605; 83690; 85025; 86140; 96361; 96374; 99284; A9270; J2405; J7030; G0480

== ENCOUNTER 2019-12-14 23:54 | Inpatient (IN) | payer OTHER, MEDICARE ==
--- NOTE | 2019-12-15 00:27 | EDM.PDOC ---
ED HPI GENERAL MEDICAL PROBLEM - General Chief Complaint: Diabetic Complaint Stated Complaint: MEDICAL [facility] Time Seen by Provider: 12/15/19 00:22 Source of Information: Reports: Patient History Limitations: Reports: No Limitations - History of Present Illness INITIAL COMMENTS - FREE TEXT/NARRATIVE: pt arrived with a history of vomiting since . He went to [place] for his [employer] . He had lunch at the [employer] and later went out to eat with the family. He started vomitingg and he has not stopped since that time. He has not had abdomanal pain. He does drink on a daily basis. He states that he drinks 3-4 beers daily and no other liquor. He drove back from [place] and he drank water on the way. He did not check his bs. He checked it when he got home and it was greater than 500. Onset: Gradual, Other (pt has been ill since ) Duration: Hour(s): Location: Reports: Abdomen, Other (pt has been having vomiting since . ) Associated Symptoms: Reports: Diaphoresis, Loss of Appetite, Nausea/Vomiting - Related Data Allergies Allergy/AdvReac Type Severity Reaction Status Date / Time cephalexin monohydrate Allergy Unknown Hives Verified 12/15/19 00:00 [From Keflex] codeine AdvReac Unknown Vomiting Verified 12/15/19 00:00 Home Meds: Home Meds Insulin Glarg,Human.Rec.Analog [Lantus Solostar] 16 - 20 units SQ BEDTIME [History] Insulin Lispro [HumaLOG] 4 - 6 unit SUBCNJ TID 09/07/17 [History] Omeprazole 20 mg PO DAILY 12/15/19 [History] Past Medical History HEENT History: Reports: Impaired Vision Cardiovascular History: Reports: Heart Murmur Respiratory History: Reports: COPD Gastrointestinal History: Reports: GERD, Other (See Below) Other Gastrointestinal History: acid reflux Musculoskeletal History: Reports: Osteoarthritis, Other (See Below) Other Musculoskeletal History: right sciatic pain Psychiatric History: Reports: Anxiety, Depression Endocrine/Metabolic History: Reports: Diabetes, Type II Other Endocrine/Metabolic History: insulin dependent - Infectious Disease History Infectious Disease History: Reports: Chicken Pox, Measles, Mumps Other Infectious Disease History: polio Social & Family History - Tobacco Use Smoking Status *Q: Never Smoker - Caffeine Use Caffeine Use: Reports: Coffee Caffeine Use Comment: occasional coffee - Alcohol Use Days Per Week of Alcohol Use: 7 Number of Drinks Per Day: 5 Total Drinks Per Week: 35 - Recreational Drug Use Recreational Drug Use: No ED ROS GENERAL - Review of Systems Review Of Systems: See Below Constitutional: Reports: Weakness, Fatigue, Diaphoresis, Decreased Appetite, Weight Loss, Other ( In the last 6 monthes he has lost about 12 lbs. ) HEENT: Reports: No Symptoms Respiratory: Reports: No Symptoms Cardiovascular: Reports: Palpitations Endocrine: Reports: High Glucose GI/Abdominal: Reports: Nausea, Vomiting : Reports: No Symptoms Musculoskeletal: Reports: No Symptoms Skin: Reports: No Symptoms ED EXAM GENERAL NO PERIP PULSE - Physical Exam Exam: See Below Text/Narrative:: pt arrived with a bs of greater than 500. He has been vomiting for the past 3 days. He has been taking his insulin but he has nott been checking his bs in the last 3-4 days. Exam Limited By: No Limitations General Appearance: Alert, Lethargic, Other (pt looks very dehydrated. ) Ears: Normal TMs Nose: Normal Inspection Throat/Mouth: Normal Inspection Head: Atraumatic Neck: Normal Inspection Respiratory/Chest: No Respiratory Distress Cardiovascular: Regular Rate, Rhythm, Tachycardia GI/Abdominal: Soft, Non-Tender (Male) Exam: Deferred Rectal (Males) Exam: Deferred Back Exam: Normal Inspection Extremities: Normal Inspection Neurological: Alert, Oriented, Normal Cognition Psychiatric: Depressed Mood Course - Vital Signs Last Recorded V/S: Last Vital Signs Temp 35.8 C 12/14/19 23:58 Pulse 123 H 12/14/19 23:58 Resp 18 12/14/19 23:58 BP 152/71 H 12/14/19 23:58 Pulse Ox 99 12/14/19 23:58 - Orders/Labs/Meds Orders: Active Orders 24 hr Category Date Time Status UA W/MICROSCOPIC [URIN] Urgent Lab 12/14/19 23:57 Ordered Regular Insulin,Human 100 Units in Normal Saline @ 0.1 Med 12/15/19 01:30 Ordered UNITS/KG/HR Insulin Regular, Human [HumuLIN R] 100 unit Sodium Chloride 0.9% [Normal Saline] 99 ml IV TITRATE Sodium Chloride 0.9% [Normal Saline] 1,000 ml Med 12/15/19 00:30 Active IV ASDIRECTED Sodium Chloride 0.9% [Normal Saline] 1,000 ml Med 12/15/19 01:15 Ordered IV ASDIRECTED Medication Orders Sodium Chloride (Normal Saline) 1,000 mls @ 999 mls/hr IV ASDIRECTED JUDIE Last Admin: 12/15/19 00:27 Dose: 999 mls/hr Sodium Chloride (Normal Saline) 1,000 mls @ 999 mls/hr IV ASDIRECTED JUDIE Insulin Human Regular 100 unit (/ Sodium Chloride) 100 mls @ 5.89 mls/hr IV TITRATE JUDIE; Protocol Labs: Laboratory Tests 12/15/19 12/15/19 12/15/19 Range/Units 00:05 00:05 00:05 WBC 10.4 (4.5-11.0) K/uL RBC 5.10 (4.30-5.90) M/uL Hgb 15.8 H (12.0-15.0) g/dL Hct 45.8 (40.0-54.0) % MCV 90 (80-98) fL MCH 31 (27-31) pg MCHC 35 (32-36) % Plt Count 205 (150-400) K/uL Neut % (Auto) 88 H (36-66) % Lymph % (Auto) 4 L (24-44) % Andrew % (Auto) 8 H (2-6) % Eos % (Auto) 1 L (2-4) % Baso % (Auto) 0 (0-1) % VBG pH 7.226 L (7.350-7.450) Sodium 138 L (140-148) mmol/L Potassium 4.4 (3.6-5.2) mmol/L Chloride 100 (100-108) mmol/L Carbon Dioxide 10 L (21-32) mmol/L Anion Gap 32.4 H (5.0-14.0) mmol/L BUN 34 H (7-18) mg/dL Creatinine 2.4 H D (0.8-1.3) mg/dL Est Cr Clr Drug Dosing 23.20 mL/min Estimated GFR (MDRD) 27 L (>60) Glucose 530 H* (74-106) mg/dL Lactic Acid (0.4-2.0) mmol/L Calcium 8.6 (8.5-10.1) mg/dL Total Bilirubin 0.5 (0.2-1.0) mg/dL AST 11 L (15-37) U/L ALT 19 (12-78) U/L Alkaline Phosphatase 106 (46-116) U/L Total Protein 8.0 (6.4-8.2) g/dL Albumin 4.4 (3.4-5.0) g/dL Globulin 3.6 H (2.3-3.5) g/dL Albumin/Globulin Ratio 1.2 (1.2-2.2) Lipase (73-393) U/L 12/15/19 12/15/19 Range/Units 00:09 00:10 WBC (4.5-11.0) K/uL RBC (4.30-5.90) M/uL Hgb (12.0-15.0) g/dL Hct (40.0-54.0) % MCV (80-98) fL MCH (27-31) pg MCHC (32-36) % Plt Count (150-400) K/uL Neut % (Auto) (36-66) % Lymph % (Auto) (24-44) % Andrew % (Auto) (2-6) % Eos % (Auto) (2-4) % Baso % (Auto) (0-1) % VBG pH (7.350-7.450) Sodium (140-148) mmol/L Potassium (3.6-5.2) mmol/L Chloride (100-108) mmol/L Carbon Dioxide (21-32) mmol/L Anion Gap (5.0-14.0) mmol/L BUN (7-18) mg/dL Creatinine (0.8-1.3) mg/dL Est Cr Clr Drug Dosing mL/min Estimated GFR (MDRD) (>60) Glucose (74-106) mg/dL Lactic Acid 3.3 H (0.4-2.0) mmol/L Calcium (8.5-10.1) mg/dL Total Bilirubin (0.2-1.0) mg/dL AST (15-37) U/L ALT (12-78) U/L Alkaline Phosphatase (46-116) U/L Total Protein (6.4-8.2) g/dL Albumin (3.4-5.0) g/dL Globulin (2.3-3.5) g/dL Albumin/Globulin Ratio (1.2-2.2) Lipase 326 (73-393) U/L Meds: Medications Generic Name Dose Route Start Last Admin Trade Name Freq PRN Reason Stop Dose Admin Sodium Chloride 1,000 mls @ 999 mls/hr 12/15/19 00:30 12/15/19 00:27 Normal Saline IV 999 mls/hr ASDIRECTED JUDIE Administration Sodium Chloride 1,000 mls @ 999 mls/hr 12/15/19 01:15 Normal Saline IV ASDIRECTED JUDIE Insulin Human Regular 100 unit 100 mls @ 5.89 mls/hr 12/15/19 01:30 / Sodium Chloride IV TITRATE JUDIE Protocol 0.1 UNITS/KG/HR Discontinued Medications Generic Name Dose Route Start Last Admin Trade Name Freq PRN Reason Stop Dose Admin Insulin Human Regular 3 unit 12/15/19 00:40 12/15/19 01:00 Humulin R IVPUSH 12/15/19 00:41 3 units ONETIME ONE Administration Insulin Human Regular 10 unit 12/15/19 00:41 12/15/19 01:02 Humulin R SUBCUT 12/15/19 00:42 10 units ONETIME ONE Administration - Re-Assessments/Exams Free Text/Narrative Re-Assessment/Exam: 12/15/19 01:25 pt was found to be in ketoacidosis. He has a ph of 7.22. He has a co2 of 10. He has a high hg. His renal status is impaired. Departure - Departure Time of Disposition: 01:26 Disposition: Admitted As Inpatient 68 Condition: Fair Clinical Impression: Dehydration Diabetic ketoacidosis Qualifiers: Diabetes mellitus type: type 1 Diabetes mellitus complication detail: without coma Qualified Code(s): E10.10 - Type 1 diabetes mellitus with ketoacidosis without coma - Discharge Information Referrals: PCP,None [Primary Care Provider] - Forms: ED Department Discharge Care Plan Goals: admit to Dr Amado. Sepsis Event Note - Evaluation Sepsis Screening Result: Possible Sepsis Risk - Focused Exam Vital Signs: Vital Signs Temp Pulse Resp BP Pulse Ox 12/14/19 23:58 35.8 C 123 H 18 152/71 H 99 Date Exam was Performed: 12/15/19 Time Exam was Performed: 01:21 - My Orders Last 24 Hours: My Active Orders 12/14/19 23:57 UA W/MICROSCOPIC [URIN] Urgent 12/15/19 00:30 Sodium Chloride 0.9% [Normal Saline] 1,000 ml IV ASDIRECTED 12/15/19 01:15 Sodium Chloride 0.9% [Normal Saline] 1,000 ml IV ASDIRECTED 12/15/19 01:30 Regular Insulin,Human 100 Units in Normal Saline @ 0.1 UNITS/KG/HR Insulin Regular, Human [HumuLIN R] 100 unit Sodium Chloride 0.9% [Normal Saline] 99 ml IV TITRATE - Assessment/Plan Last 24 Hours: My Active Orders 12/14/19 23:57 UA W/MICROSCOPIC [URIN] Urgent 12/15/19 00:30 Sodium Chloride 0.9% [Normal Saline] 1,000 ml IV ASDIRECTED 12/15/19 01:15 Sodium Chloride 0.9% [Normal Saline] 1,000 ml IV ASDIRECTED 12/15/19 01:30 Regular Insulin,Human 100 Units in Normal Saline @ 0.1 UNITS/KG/HR Insulin Regular, Human [HumuLIN R] 100 unit Sodium Chloride 0.9% [Normal Saline] 99 ml IV TITRATE
[2019-12-15] MEDS ORDERED: Sodium Chloride 0.9% 1,000 ML IV SCH ×3 (00:30→03:05)
[2019-12-15] MEDS ORDERED: Insulin Regular, Human 100 Units/ML 3 ML Vial IVPUSH ONE (00:40)
[2019-12-15] MEDS ORDERED: Insulin Regular, Human 100 Units/ML 3 ML Vial SUBCUT ONE (00:41)
[2019-12-15] MEDS ORDERED: Sodium Chloride 0.9% 100 ML ONE (01:47)
--- NOTE | 2019-12-15 02:40 | PCM.HP.2 ---
H&P History of Present Illness - General Date of Service: 12/15/19 Admit Problem/Dx: Admission Diagnosis/Problem Admission Diagnosis/Problem Diabetic ketoacidosis Source of Information: Patient, Provider History Limitations: Reports: No Limitations - History of Present Illness Initial Comments - Free Text/Narative: CC: I can't keep anything down HPI: Greg presents to the emergency room today with nausea, vomiting and fatigue. Symptoms started on , 3 days ago. He was at his brother's when he started feeling unwell. He later developed nausea and vomiting. He did not have any abdominal pain or fevers. Initially symptoms were relatively mild but over the next 24 and then 48 hours progressed to the point that he is unable to keep anything down. Anytime he drinks water he vomits. He has not had any solid food since . He has not had any diarrhea. He does not complain of shortness of breath or significant cough. No one else at the was sick. He does admit that he did not check his blood sugars while he was out of town but when he got home they were over 400. He reports minimal alcohol consumption around the time of the . He has been taking subcutaneous doses of insulin at home but continues to to have trouble with significant hyperglycemia as well as nausea, vomiting and fatigue. He does have chronic back pain which is stable. Work-up in the emergency room was suggestive of diabetic ketoacidosis with significant hyperglycemia as well as acute kidney injury and an anion gap metabolic acidosis. His pH on venous blood gases is 7.2 and his lactic acid is 3.3. He has received some IV insulin and IV fluids. An insulin infusion has been started. He will be admitted for further management. - Related Data Allergies/Adverse Reactions: Allergies Allergy/AdvReac Type Severity Reaction Status Date / Time cephalexin monohydrate Allergy Unknown Hives Verified 12/15/19 02:45 [From Keflex] codeine AdvReac Unknown Vomiting Verified 12/15/19 02:45 Home Medications: Home Meds Insulin Glarg,Human.Rec.Analog [Lantus Solostar] 16 - 20 units SQ BEDTIME [History] Insulin Lispro [HumaLOG] 4 - 6 unit SUBCNJ TID 09/07/17 [History] Omeprazole 20 mg PO DAILY 12/15/19 [History] Past Medical History HEENT History: Reports: Impaired Vision Cardiovascular History: Reports: Heart Murmur Respiratory History: Reports: COPD Gastrointestinal History: Reports: GERD, Other (See Below) Other Gastrointestinal History: acid reflux Musculoskeletal History: Reports: Osteoarthritis, Other (See Below) Other Musculoskeletal History: right sciatic pain Psychiatric History: Reports: Anxiety, Depression Endocrine/Metabolic History: Reports: Diabetes, Type II Other Endocrine/Metabolic History: insulin dependent - Infectious Disease History Infectious Disease History: Reports: Chicken Pox, Measles, Mumps Other Infectious Disease History: polio Social & Family History - Family History Cardiac: Denies: CAD - Tobacco Use Smoking Status *Q: Never Smoker - Caffeine Use Caffeine Use: Reports: Coffee Caffeine Use Comment: occasional coffee - Alcohol Use Days Per Week of Alcohol Use: 7 Number of Drinks Per Day: 5 Total Drinks Per Week: 35 - Recreational Drug Use Recreational Drug Use: No H&P Review of Systems - Review of Systems: Review Of Systems: See Below Free Text/Narrative: A complete 12 point review of systems was obtained. Pertinent positives and negatives are noted in the history of present illness. All other systems were reviewed and were negative except as noted. Exam - Exam Exam: See Below - Vital Signs Vital Signs: Last Vital Signs Temp 35.8 C 12/14/19 23:58 Pulse 109 H 12/15/19 02:13 Resp 18 12/15/19 01:53 BP 169/77 H 12/15/19 02:13 Pulse Ox 95 12/15/19 02:13 Weight: 58.967 kg - Exam Quality Assessment: No: Supplemental Oxygen General: Alert, Oriented, Cooperative. No: Mild Distress HEENT: Conjunctiva Clear. No: Mucosa Moist & [place] (dry), Scleral Icterus Neck: Supple, Trachea Midline. No: Lymphadenopathy Lungs: Clear to Auscultation, Normal Respiratory Effort Cardiovascular: Regular Rhythm, Tachycardia. No: Systolic Murmur GI/Abdominal Exam: Normal Bowel Sounds, Soft, Non-Tender, No Distention, No Mass Extremities: No Pedal Edema. No: Increased Warmth Peripheral Pulses: 2+: Dorsalis Pedis (L), Dorsalis Pedis (R) Skin: Warm, Dry Neuro Extensive - Mental Status: Alert, Oriented x3, Nl Response to Commands Neuro Extensive - Motor, Sensory, Reflexes: No: Dysarthria, Abnormal Motor, Tremor Psychiatric: Alert, Normal Affect - Patient Data Lab Results Last 24 hrs: Laboratory Results - last 24 hr 12/15/19 12/15/19 12/15/19 Range/Units 00:05 00:05 00:05 WBC 10.4 (4.5-11.0) K/uL RBC 5.10 (4.30-5.90) M/uL Hgb 15.8 H (12.0-15.0) g/dL Hct 45.8 (40.0-54.0) % MCV 90 (80-98) fL MCH 31 (27-31) pg MCHC 35 (32-36) % Plt Count 205 (150-400) K/uL Neut % (Auto) 88 H (36-66) % Lymph % (Auto) 4 L (24-44) % [place] % (Auto) 8 H (2-6) % Eos % (Auto) 1 L (2-4) % Baso % (Auto) 0 (0-1) % VBG pH 7.226 L (7.350-7.450) Sodium 138 L (140-148) mmol/L Potassium 4.4 (3.6-5.2) mmol/L Chloride 100 (100-108) mmol/L Carbon Dioxide 10 L (21-32) mmol/L Anion Gap 32.4 H (5.0-14.0) mmol/L BUN 34 H (7-18) mg/dL Creatinine 2.4 H D (0.8-1.3) mg/dL Est Cr Clr Drug Dosing 23.20 mL/min Estimated GFR (MDRD) 27 L (>60) Glucose 530 H* (74-106) mg/dL Lactic Acid (0.4-2.0) mmol/L Calcium 8.6 (8.5-10.1) mg/dL Total Bilirubin 0.5 (0.2-1.0) mg/dL AST 11 L (15-37) U/L ALT 19 (12-78) U/L Alkaline Phosphatase 106 (46-116) U/L Total Protein 8.0 (6.4-8.2) g/dL Albumin 4.4 (3.4-5.0) g/dL Globulin 3.6 H (2.3-3.5) g/dL Albumin/Globulin Ratio 1.2 (1.2-2.2) Lipase (73-393) U/L Ethyl Alcohol mg/dL 12/15/19 12/15/19 12/15/19 Range/Units 00:05 00:09 00:10 WBC (4.5-11.0) K/uL RBC (4.30-5.90) M/uL Hgb (12.0-15.0) g/dL Hct (40.0-54.0) % MCV (80-98) fL MCH (27-31) pg MCHC (32-36) % Plt Count (150-400) K/uL Neut % (Auto) (36-66) % Lymph % (Auto) (24-44) % [place] % (Auto) (2-6) % Eos % (Auto) (2-4) % Baso % (Auto) (0-1) % VBG pH (7.350-7.450) Sodium (140-148) mmol/L Potassium (3.6-5.2) mmol/L Chloride (100-108) mmol/L Carbon Dioxide (21-32) mmol/L Anion Gap (5.0-14.0) mmol/L BUN (7-18) mg/dL Creatinine (0.8-1.3) mg/dL Est Cr Clr Drug Dosing mL/min Estimated GFR (MDRD) (>60) Glucose (74-106) mg/dL Lactic Acid 3.3 H (0.4-2.0) mmol/L Calcium (8.5-10.1) mg/dL Total Bilirubin (0.2-1.0) mg/dL AST (15-37) U/L ALT (12-78) U/L Alkaline Phosphatase (46-116) U/L Total Protein (6.4-8.2) g/dL Albumin (3.4-5.0) g/dL Globulin (2.3-3.5) g/dL Albumin/Globulin Ratio (1.2-2.2) Lipase 326 (73-393) U/L Ethyl Alcohol < 3 mg/dL Result Diagrams: 12/15/19 00:05 12/15/19 00:05 Sepsis Event Note - Evaluation Sepsis Screening Result: Possible Sepsis Risk - Focused Exam Vital Signs: Vital Signs Temp Pulse Resp BP Pulse Ox 12/15/19 02:13 109 H 169/77 H 95 12/15/19 01:53 108 H 18 166/75 H 97 12/14/19 23:58 35.8 C 123 H 18 152/71 H 99 Date Exam was Performed: 12/15/19 Time Exam was Performed: 02:44 *Q Meaningful Use (ADM) - VTE Risk Assess *Q Each Risk Factor Represents 1 Point: None Total Score 1 Point Risk Factors: 0 Each Risk Factor Represents 2 Points: Age 60 - 74 Years Total Score 2 Point Risk Factors: 2 Each Risk Factor Represents 3 Points: None Total Score 3 Point Risk Factors: 0 Each Risk Factor Represents 5 Points: None Total Score 5 Point Risk Factors: 0 Venous Thromboembolism Risk Factor Score *Q: 2 - Problem List (1) Diabetic keto-acidosis SNOMED Code(s): 901332616, 574070285 ICD Code: E13.10 - OTH DIABETES MELLITUS WITH KETOACIDOSIS WITHOUT COMA Status: Acute Qualifiers: Diabetes mellitus type: type 1 Diabetes mellitus complication detail: without coma Qualified Code(s): E10.10 - Type 1 diabetes mellitus with ketoacidosis without coma (2) High anion gap metabolic acidosis SNOMED Code(s): 34422232 ICD Code: E87.2 - ACIDOSIS Status: Acute (3) Acute kidney injury SNOMED Code(s): 07679006, 77799172 ICD Code: N17.9 - ACUTE KIDNEY FAILURE, UNSPECIFIED Status: Acute (4) COPD (chronic obstructive pulmonary disease) SNOMED Code(s): 62057135 ICD Code: J44.9 - CHRONIC OBSTRUCTIVE PULMONARY DISEASE, UNSPECIFIED Status : Chronic Qualifiers: Emphysema type: unspecified (5) Chronic back pain SNOMED Code(s): 166697093 ICD Code: M54.9 - DORSALGIA, UNSPECIFIED; G89.29 - OTHER CHRONIC PAIN Status: Chronic Qualifiers: Back pain location: low back pain Back pain laterality: bilateral Sciatica presence: with sciatica Sciatica laterality: bilateral sciatica Qualified Code(s): M54.42 - Lumbago with sciatica, left side; M54.41 - Lumbago with sciatica, right side; G89.29 - Other chronic pain Problem List Initiated/Reviewed/Updated: Yes Orders Last 24hrs: Active Orders 24 hr Category Date Time Status Patient Status Manage Transfer [TRANSFER] Routine ADT 12/15/19 02:27 Ordered UA W/MICROSCOPIC [URIN] Urgent Lab 12/14/19 23:57 Ordered Resuscitation Status Routine Resus Stat 12/15/19 02:28 Ordered Assessment/Plan Comment:: ASSESSMENT AND PLAN - Diabetic ketoacidosis-no evidence for infection, suspect noncompliance with diet and medications. pH is 7.2 and he has a severe anion gap metabolic acidosis. He is unable to keep down any fluids. Blood sugar significantly elevated. History of similar about 4 months ago. -Insulin infusion per protocol, continue until anion gap is normal -IV fluids -Accu-Cheks every hour -Repeat labs in 4 hours -Restart subcutaneous insulin once anion gap is normal and blood sugars have improved Acute kidney injury-secondary to dehydration with nausea vomiting and poor intake. I would expect this will improve with hydration. -Repeat labs after hydration Alcohol dependence-last drink was about 3 days ago. Chronic back pain-stable. Maintenance issues - - DVT prophylaxis -mechanical - GI prophylaxis -IV PPI - Nutrition -nothing by mouth - Christianson catheter -not indicated CODE STATUS -full code Admission justification -this patient will be admitted for inpatient services and is medically appropriate meeting medical necessity for inpatient admission as outlined in my documentation. I reasonably expect the patient will require inpatient services that span a period time over 2 midnights. I reasonably expect this patient to be discharged or transferred within 96 hours [facility]. Disposition -I would anticipate discharge home after the hospital stay Primary care physician - Dr Airam Reagan M.D. - Mortality Measure Prognosis:: Good
[2019-12-15] MEDS ORDERED: LORazepam 2 MG/ML SDV IVPUSH PRN (03:05)
[2019-12-15] MEDS ORDERED: Acetaminophen 325 MG Tab PO PRN (03:05)
[2019-12-15] MEDS ORDERED: Magnesium Hydroxide 400 MG/5 ML Susp 30 ML Cup PO PRN (03:05)
[2019-12-15] MEDS ORDERED: Melatonin 3 MG Tab PO PRN (03:05)
[2019-12-15] MEDS ORDERED: Ondansetron 4 MG/2 ML SDV IV PRN (03:05)
[2019-12-15] MEDS ORDERED: Albuterol 0.083% 2.5 MG/3 ML Neb Soln NEB PRN (03:05)
[2019-12-15] MEDS ORDERED: Morphine 2 MG/ML Syringe IVPUSH PRN (03:05)
[2019-12-15] MEDS ORDERED: Ondansetron 4 MG Tab.DIS PO PRN (03:05)
[2019-12-15] MEDS ORDERED: oxyCODONE 5 MG Tab PO PRN (03:05)
[2019-12-15] MEDS: Pantoprazole 40 MG Vial IV SCH ×2 (03:23→15:28)
[2019-12-15] MEDS: Dextrose 5%-0.9% NaCl 1,000 ML IV SCH ×2 (05:36→15:29)
[2019-12-15] MEDS ORDERED: chlorproMAZINE 25 MG Tab PO ONE (10:30)
[2019-12-15] MEDS: Potassium Chloride 20 MEQ, Lidocaine 1% 2 ML in Sodium Chloride 0.9% 100 ML IV SCH ×2 (10:48→12:53)
[2019-12-15] MEDS ORDERED: Potassium Chloride 20 MEQ Tab.ER PO STA (21:08)
[2019-12-15] MEDS ORDERED: Dextrose 5%-0.9% NaCl 1,000 ML IV SCH (21:11)
[2019-12-15] MEDS ORDERED: Potassium Chloride 20 MEQ, Lidocaine 1% 2 ML in Sodium Chloride 0.9% 100 ML IV SCH (21:15)
[2019-12-15] MEDS ORDERED: Potassium Chloride 20 MEQ in Premix Bag 1 BAG IV ONE (21:22)
[2019-12-16] MEDS ORDERED: Insulin Glargine,Human Rec. Analog 100 Units/ML 3 ML Pen SUBCUT ONE (01:20)
[2019-12-16] MEDS: Pantoprazole 40 MG Vial IV SCH ×2 (02:25→04:50)
[2019-12-16 08:04] VITALS: BP 116/65; PULSE 97
[2019-12-16] MEDS ORDERED: Potassium Chloride 20 MEQ Tab.ER PO ONE (09:00)
--- NOTE | 2019-12-16 09:43 | PCM.DCSUM1 ---
Discharge Summary - Hospital Course Brief History: 74-year-old male with history of insulin-dependent diabetes mellitus, alcohol dependence who presented with persistent nausea and vomiting as well as hyperglycemia. He was admitted for management of diabetic ketoacidosis with acute kidney injury. Diagnosis: Stroke: No - Discharge Data Discharge Date: 12/16/19 Discharge Disposition: Home, Self-Care 01 Condition: Good - Referral to Home Health Primary Care Physician: PCP None - Discharge Diagnosis/Problem(s) (1) Diabetic keto-acidosis SNOMED Code(s): 547487391, 042430494 ICD Code: E13.10 - OTH DIABETES MELLITUS WITH KETOACIDOSIS WITHOUT COMA Status: Acute Current Visit: Yes Qualifiers: Diabetes mellitus type: type 1 Diabetes mellitus complication detail: without coma Qualified Code(s): E10.10 - Type 1 diabetes mellitus with ketoacidosis without coma (2) High anion gap metabolic acidosis SNOMED Code(s): 21240487 ICD Code: E87.2 - ACIDOSIS Status: Acute Current Visit: Yes (3) Acute kidney injury SNOMED Code(s): 51433761, 10686179 ICD Code: N17.9 - ACUTE KIDNEY FAILURE, UNSPECIFIED Status: Acute Current Visit: Yes (4) COPD (chronic obstructive pulmonary disease) SNOMED Code(s): 36811986 ICD Code: J44.9 - CHRONIC OBSTRUCTIVE PULMONARY DISEASE, UNSPECIFIED Status : Chronic Current Visit: No Qualifiers: Emphysema type: unspecified (5) Chronic back pain SNOMED Code(s): 124182343 ICD Code: M54.9 - DORSALGIA, UNSPECIFIED; G89.29 - OTHER CHRONIC PAIN Status: Chronic Current Visit: No Qualifiers: Back pain location: low back pain Back pain laterality: bilateral Sciatica presence: with sciatica Sciatica laterality: bilateral sciatica Qualified Code(s): M54.42 - Lumbago with sciatica, left side; M54.41 - Lumbago with sciatica, right side; G89.29 - Other chronic pain - Patient Summary/Data Hospital Course: Raulito presented to the emergency room with several days of progressive nausea with vomiting and poor oral intake. Work-up in the emergency room revealed significant hyperglycemia with a blood sugar of more than 500 as well as evidence for diabetic ketoacidosis and acute kidney injury. He received IV insulin as well as an insulin drip in the emergency room. He received IV fluids in the emergency room. He was admitted for further management. Upon admission to the intensive care unit the fluids and insulin drip were continued. Over the next 20 hours or so we saw slow but steady improvement in the elevated anion gap and metabolic acidosis. After several hours of the insulin drip we did have to start a dextrose infusion to maintain adequate blood sugar. Eventually the anion gap did normalize. At this point the patient was transitioned to subcutaneous insulin and has remained stable. His kidney function has normalized with IV fluids provided during the hospital stay. He did have hypokalemia which required supplementation on several different occasions but has been improving throughout the hospital stay. His nausea and vomiting have resolved. He tolerated a regular diet. He feels well enough to go home at this point. I suspect the diabetic ketoacidosis was caused by the patient not taking insulin for a couple of days as well as some dietary indiscretion. There is no evidence for infection. No medication changes are made at the time of discharge. - Patient Instructions Diet: Diabetic Diet Activity: As Tolerated Showering/Bathing: May Shower Notify Provider of: Fever, Increased Pain, Nausea and/or Vomiting Other/Special Instructions: 1. Continue your usual home medications. 2. Consider follow up with Dr Tesfaye to establish care - Discharge Plan *PRESCRIPTION DRUG MONITORING PROGRAM REVIEWED*: Not Applicable *COPY OF PRESCRIPTION DRUG MONITORING REPORT IN PATIENT MODESTA: Not Applicable Home Medications: Home Meds Insulin Glarg,Human.Rec.Analog [Lantus Solostar] 16 - 20 units SQ BEDTIME [History] Insulin Lispro [HumaLOG] 4 - 6 unit SUBCNJ TID 09/07/17 [History] Omeprazole 20 mg PO DAILY 12/15/19 [History] Oxygen Therapy Mode: Room Air Patient Handouts: Diabetic Ketoacidosis, Dehydration, Adult, [id number], Blood Glucose Monitoring, Adult Referrals: Tamia Tesfaye DO [Physician] - (Dr Lopez at 12/24/19 at 1:40p) - Discharge Summary/Plan Comment DC Time >30 min.: No - Patient Data Vitals - Most Recent: Last Vital Signs Temp 37.5 C 12/16/19 08:00 Pulse 97 12/16/19 08:00 Resp 15 12/16/19 08:00 BP 116/65 12/16/19 08:00 Pulse Ox 96 12/16/19 08:00 Weight - Most Recent: 55.111 kg I&O - Last 24 hours: Intake & Output 12/15/19 12/16/19 12/16/19 22:59 06:59 14:59 Intake Total 2658 Output Total 800 Balance 1858 Lab Results - Last 24 hrs: Laboratory Results - last 24 hr 12/15/19 12/15/19 12/15/19 Range/Units 12:05 16:05 20:37 WBC (4.5-11.0) K/uL RBC (4.30-5.90) M/uL Hgb (12.0-15.0) g/dL Hct (40.0-54.0) % MCV (80-98) fL MCH (27-31) pg MCHC (32-36) % Plt Count (150-400) K/uL Sodium 143 144 147 (140-148) mmol/L Potassium 3.6 3.6 2.9 L* (3.6-5.2) mmol/L Chloride 111 H 111 H 113 H (100-108) mmol/L Carbon Dioxide 18 L 18 L 20 L (21-32) mmol/L Anion Gap 17.6 H 18.6 H 16.9 H (5.0-14.0) mmol/L BUN 26 H 24 H 20 H (7-18) mg/dL Creatinine 1.4 H 1.2 1.1 (0.8-1.3) mg/dL Est Cr Clr Drug Dosing 37.18 43.37 47.32 mL/min Estimated GFR (MDRD) 50 L 60 > 60 (>60) Glucose 148 H 192 H 129 H (74-106) mg/dL Calcium 8.2 L 8.1 L 8.2 L (8.5-10.1) mg/dL 12/16/19 12/16/19 12/16/19 Range/Units 00:50 05:00 05:00 WBC 7.6 (4.5-11.0) K/uL RBC 3.99 L (4.30-5.90) M/uL Hgb 11.9 L (12.0-15.0) g/dL Hct 36.4 L (40.0-54.0) % MCV 91 (80-98) fL MCH 30 (27-31) pg MCHC 33 (32-36) % Plt Count 157 (150-400) K/uL Sodium 145 145 (140-148) mmol/L Potassium 3.5 L 3.2 L (3.6-5.2) mmol/L Chloride 113 H 113 H (100-108) mmol/L Carbon Dioxide 20 L 21 (21-32) mmol/L Anion Gap 15.5 H 14.2 H (5.0-14.0) mmol/L BUN 18 14 (7-18) mg/dL Creatinine 1.0 0.9 (0.8-1.3) mg/dL Est Cr Clr Drug Dosing 52.05 57.83 mL/min Estimated GFR (MDRD) > 60 > 60 (>60) Glucose 223 H 197 H (74-106) mg/dL Calcium 8.0 L 8.0 L (8.5-10.1) mg/dL Med Orders - Current: Current Medications Acetaminophen (Tylenol) 650 mg PO Q4H PRN PRN Reason: Pain (Mild 1-3)/fever Albuterol (Proventil Neb Soln) 2.5 mg NEB Q4H PRN PRN Reason: Shortness Of Breath/wheezing Lorazepam (Ativan) 0.5 mg IVPUSH Q4H PRN PRN Reason: Nausea/Vomiting Magnesium Hydroxide (Milk Of Magnesia) 30 ml PO Q12H PRN PRN Reason: Constipation Melatonin (Melatonin) 9 mg PO BEDTIME PRN PRN Reason: Sleep Morphine Sulfate (Morphine) 2 mg IVPUSH Q2H PRN PRN Reason: Pain (severe 7-10) Ondansetron HCl (Zofran Odt) 4 mg PO Q6H PRN PRN Reason: Nausea able to take PO Ondansetron HCl (Zofran) 4 mg IV Q6H PRN PRN Reason: Nausea/Vomiting Oxycodone HCl (Oxycodone) 5 - 10 mg PO Q4H PRN PRN Reason: Pain Pantoprazole Sodium (Protonix Iv) 40 mg IV Q12H [facility] Last Admin: 12/16/19 04:50 Dose: Not Given Senna/Docusate Sodium (Senna Plus) 1 tab PO BID PRN PRN Reason: Constipation Discontinued Medications Chlorpromazine HCl (Thorazine) 25 mg PO ONETIME ONE Stop: 12/15/19 10:31 Last Admin: 12/15/19 10:05 Dose: 25 mg Sodium Chloride (Normal Saline) 1,000 mls @ 999 mls/hr IV ASDIRECTED JUDIE Last Admin: 12/15/19 00:27 Dose: 999 mls/hr Sodium Chloride (Normal Saline) 1,000 mls @ 999 mls/hr IV ASDIRECTED JUDIE Last Admin: 12/15/19 01:36 Dose: 999 mls/hr Insulin Human Regular 100 unit (/ Sodium Chloride) 100 mls @ 5.89 mls/hr IV TITRATE JUDIE; Protocol Stop: 12/16/19 02:20 Last Titration: 12/15/19 23:05 Dose: 0.01 units/kg/hr, 1 mls/hr Sodium Chloride (Normal Saline) Confirm Administered Dose 100 mls @ as directed .ROUTE .K-MED ONE Stop: 12/15/19 01:48 Last Admin: 12/15/19 02:04 Dose: Not Given Sodium Chloride (Normal Saline) 1,000 mls @ 125 mls/hr IV ASDIRECTED JUDIE Dextrose/Sodium Chloride (Dextrose 5%-Normal Saline) 1,000 mls @ 100 mls/hr IV ASDIRECTED JUDIE Last Admin: 12/15/19 15:29 Dose: 100 mls/hr Potassium Chloride 20 meq/Lidocaine HCl 2 ml/ Sodium Chloride 112 mls @ 56 mls/ hr IV Q2H JUDIE Stop: 12/15/19 14:59 Last Admin: 12/15/19 12:53 Dose: 56 mls/hr Dextrose/Sodium Chloride (Dextrose 5%-Normal Saline) 1,000 mls @ 150 mls/hr IV ASDIRECTED JUDIE Stop: 12/16/19 02:20 Last Infusion: 12/16/19 02:24 Dose: 0 mls/hr Potassium Chloride 20 meq/ (Premix) 100 mls @ 50 mls/hr IV ONETIME ONE Stop: 12/15/19 23:21 Last Admin: 12/15/19 21:42 Dose: 50 mls/hr Insulin Glargine (Lantus Solostar) 20 units SUBCUT BEDTIME ONE Stop: 12/16/19 01:21 Last Admin: 12/16/19 01:41 Dose: 20 units Insulin Human Regular (Humulin R) 3 unit IVPUSH ONETIME ONE Stop: 12/15/19 00:41 Last Admin: 12/15/19 01:00 Dose: 3 units Insulin Human Regular (Humulin R) 10 unit SUBCUT ONETIME ONE Stop: 12/15/19 00:42 Last Admin: 12/15/19 01:02 Dose: 10 units Lidocaine HCl (Xylocaine-Mpf 1%) 2 ml INJECT ONETIME ONE Stop: 12/15/19 21:23 Last Admin: 12/15/19 21:42 Dose: 2 ml Potassium Chloride (Klor-Con M20) 40 meq PO BID STA Stop: 12/15/19 21:09 Last Admin: 12/15/19 21:17 Dose: 40 meq Potassium Chloride (Klor-Con M20) 40 meq PO ONETIME ONE Stop: 12/16/19 09:01 Last Admin: 12/16/19 08:58 Dose: 40 meq - Exam Quality Assessment: Denies: Supplemental Oxygen General: Reports: Alert, Oriented, Cooperative, No Acute Distress Lungs: Reports: Normal Respiratory Effort GI/Abdominal Exam: Soft, No Distention Extremities: No Pedal Edema Psy/Mental Status: Reports: Alert, Normal Affect
== END 2019-12-16 11:00 | disposition home or self-care (01) | DRG 638 ==
LOC: JP.ED 23:54 → JP.ICU 12-15 02:27 → JP.ED 12-15 02:36
PROVIDERS: ADMIT Internal Medicine; ATTEND Internal Medicine
DX: E10.10 Type 1 diabetes mellitus with ketoacidosis without coma (principal); N17.9 Acute kidney failure, unspecified; J44.9 Chronic obstructive pulmonary disease, unspecified; M54.42 Lumbago with sciatica, left side; M54.41 Lumbago with sciatica, right side; G89.29 Other chronic pain; E86.0 Dehydration; E87.6 Hypokalemia; H54.7 Unspecified visual loss; K21.9 Gastro-esophageal reflux disease without esophagitis; F10.20 Alcohol dependence, uncomplicated; M19.90 Unspecified osteoarthritis, unspecified site; F32.9 Major depressive disorder, single episode, unspecified; Z86.19 Personal history of other infectious and parasitic diseases; Z88.5 Allergy status to narcotic agent; Z88.1 Allergy status to other antibiotic agents
CPT/HCPCS: 36415; 80048; 80053; 81001; 82800; 82962; 83605; 83690; 83735; 85025; 85027; 96360; 96361; 99285-25; A9270-GY; C9113; G0480; J1815-GY; J2001; J3480; J7030; J7050

== ENCOUNTER 2020-07-25 13:42 | Inpatient (IN) | payer OTHER, MEDICARE ==
[2020-07-25] MEDS ORDERED: Sodium Chloride 0.9% 10 ML Syringe FLUSH PRN (13:57)
[2020-07-25] MEDS ORDERED: Sodium Chloride 0.9% 1,000 ML IV SCH (14:00)
[2020-07-25] MEDS ORDERED: Insulin Regular, Human 100 Units/ML 3 ML Vial IVPUSH ONE ×2 (14:16→14:24)
[2020-07-25] MEDS ORDERED: Ondansetron 4 MG/2 ML SDV IVPUSH ONE (14:16)
[2020-07-25] MEDS ORDERED: Insulin Regular in 0.9 % NACL 100 ML IV SCH ×2 (14:30→15:15)
--- NOTE | 2020-07-25 14:35 | EDM.PDOC ---
ED HPI GENERAL MEDICAL PROBLEM - General Chief Complaint: Gastrointestinal Problem Stated Complaint: SOB,DEHYDRATED,WEIGHT LOSS/TYPE 1 DIABETES Time Seen by Provider: 07/25/20 13:48 Source of Information: Reports: Patient, RN Notes Reviewed, Significant Other - History of Present Illness INITIAL COMMENTS - FREE TEXT/NARRATIVE: Greg presents today for complaints of nausea and vomiting for 3 days with w atery diarrhea. He reports he is diabetic, last checked his blood sugar lastnight which was 129. Today he reports lethargy, feeling SOB and weak. His significant other reports he does not take care of his diabetes. He denies pain, confusion, constipation, fever, chills or other concerns. denies Pain Score (Numeric/FACES): 0 Lower Abdomen Pain Score (Numeric/FACES): 4 - Related Data Allergies Allergy/AdvReac Type Severity Reaction Status Date / Time cephalexin monohydrate Allergy Unknown Hives Verified 07/25/20 14:09 [From Keflex] codeine AdvReac Unknown Vomiting Verified 07/25/20 14:09 Home Meds: Home Meds Insulin Glarg,Human.Rec.Analog [Lantus Solostar] 20 units SQ BEDTIME 07/22/15 [History] Insulin Lispro [HumaLOG] 4 - 6 unit SUBCNJ TID 09/07/17 [History] Omeprazole 20 mg PO DAILY 12/15/19 [History] Past Medical History HEENT History: Reports: Impaired Vision Cardiovascular History: Reports: Heart Murmur Respiratory History: Reports: COPD Gastrointestinal History: Reports: GERD, Other (See Below) Other Gastrointestinal History: acid reflux Musculoskeletal History: Reports: Osteoarthritis, Other (See Below) Other Musculoskeletal History: right sciatic pain Psychiatric History: Reports: Anxiety, Depression Endocrine/Metabolic History: Reports: Diabetes, Type II Other Endocrine/Metabolic History: insulin dependent - Infectious Disease History Infectious Disease History: Reports: Chicken Pox Other Infectious Disease History: polio - Past Surgical History HEENT Surgical History: Reports: Cataract Surgery Social & Family History - Family History Family Medical History: Noncontributory - Tobacco Use Smoking Status *Q: Former Smoker Years of Tobacco use: 10 Packs/Tins Daily: 1 Used Tobacco, but Quit: Yes Month/Year Tobacco Last Used: 10 years ago - Caffeine Use Caffeine Use: Reports: Coffee Caffeine Use Comment: occasional coffee - Alcohol Use Days Per Week of Alcohol Use: 7 Number of Drinks Per Day: 6 Total Drinks Per Week: 42 - Recreational Drug Use Recreational Drug Use: No ED ROS GENERAL - Review of Systems Review Of Systems: See Below Constitutional: Reports: Malaise, Weakness, Fatigue, Weight Loss. Denies: Fever, Chills, Diaphoresis HEENT: Reports: No Symptoms Respiratory: Reports: Shortness of Breath, Cough. Denies: Wheezing, Pleuritic Chest Pain, Sputum, Hemoptysis Cardiovascular: Reports: Other (SOB). Denies: Chest Pain, Claudication, Dyspnea on Exertion, Edema, Lightheadedness, Orthopnea, Palpitations, PND, Syncope Endocrine: Reports: High Glucose GI/Abdominal: Reports: Diarrhea, Nausea, Vomiting : Reports: No Symptoms Musculoskeletal: Reports: No Symptoms Skin: Reports: No Symptoms Neurological: Reports: No Symptoms Psychiatric: Reports: No Symptoms Hematologic/Lymphatic: Reports: No Symptoms Immunologic: Reports: No Symptoms ED EXAM, GENERAL - Physical Exam Exam: See Below Exam Limited By: No Limitations General Appearance: Alert, Severe Distress, Other (tachypnea) Eye Exam: Bilateral Eye: PERRL Throat/Mouth: Other (dry mucus membranes) Head: Atraumatic, Normocephalic Neck: Normal Inspection, Supple, Non-Tender, Full Range of Motion. No: Lymphadenopathy (R), Lymphadenopathy (L) Respiratory/Chest: Decreased Breath Sounds, Accessory Muscle Use, Other (tachypnic). No: Crackles, Rales, Rhonchi, Wheezing, Stridor, Pleural Rub, Retractions, Splinting Cardiovascular: No Edema, No Murmur, No Rub, Tachycardia Peripheral Pulses: 1+: Dorsalis Pedis (L), Dorsalis Pedis (R), 2+: Radial (L), Radial (R) GI/Abdominal: Normal Bowel Sounds, Soft, Non-Tender, No Organomegaly, No Distention, No Mass. No: Guarding, Rigid, Rebound, Tender Extremities: Normal Inspection, Normal Range of Motion, Non-Tender, Other (Capillary refill <5seconds) Neurological: Alert, Oriented, Normal Cognition Psychiatric: Flat Affect Skin Exam: Dry, Intact, Cool EKG INTERPRETATION EKG Date: 07/25/20 Time: 14:22 Rhythm: Other (sinus tachycardia) Rate (Beats/Min): 136 Course - Vital Signs Last Recorded V/S: Last Vital Signs Temp 36.3 C 07/25/20 17:00 Pulse 127 H 07/25/20 18:00 Resp 22 H 07/25/20 18:00 BP 160/50 H 07/25/20 18:00 Pulse Ox 100 07/25/20 18:00 - Orders/Labs/Meds Orders: Active Orders 24 hr Category Date Time Status Blood Glucose Check, Bedside [RC] Q1H Care 07/25/20 16:00 Active Communication Order [RC] ASDIRECTED Care 07/25/20 15:10 Active Diabetes Education [RC] Click to Edit Care 07/25/20 15:10 Active Notify Provider [RC] PRN Care 07/25/20 15:10 Active Chest 1V Frontal [CR] Stat Exams 07/25/20 14:06 Taken UA W/MICROSCOPIC [URIN] Stat Lab 07/25/20 13:50 Ordered Insulin Regular in 0.9 % NACL [Myxredlin 100 UNIT/100 Med 07/25/20 15:15 Active ML] 100 ml IV ASDIRECTED Sodium Chloride 0.9% [Saline Flush] Med 07/25/20 13:57 Active 10 ml FLUSH ASDIRECTED PRN Saline Lock Insert [OM.PC] Routine Oth 07/25/20 13:57 Ordered EKG 12 Lead [EK] Routine Ther 07/25/20 14:06 Stop Req Medication Orders Acetaminophen (Tylenol) 650 mg PO Q4H PRN PRN Reason: Pain (Mild 1-3)/fever Albuterol (Proventil Neb Soln) 2.5 mg NEB Q4H PRN PRN Reason: Shortness Of Breath/wheezing Hydromorphone HCl (Dilaudid) 0.5 mg IVPUSH Q2H PRN PRN Reason: Pain Insulin Regular in 0.9 % NACL (Myxredlin 100 Unit/100 Ml) 100 mls @ 5.4 mls/hr IV ASDIRECTED JUDIE; Protocol Potassium Chloride/Sodium Chloride (Normal Saline With 20 Meq Kcl) 1,000 mls @ 125 mls/hr IV ASDIRECTED JUDIE Last Admin: 07/25/20 17:05 Dose: 125 mls/hr Documented by: ADRIAN Lorazepam (Ativan) 0.5 mg IVPUSH Q4H PRN PRN Reason: Nausea/Vomiting Magnesium Hydroxide (Milk Of Magnesia) 30 ml PO Q12H PRN PRN Reason: Constipation Melatonin (Melatonin) 9 mg PO BEDTIME PRN PRN Reason: Sleep Ondansetron HCl (Zofran) 4 mg IV Q6H PRN PRN Reason: Nausea/Vomiting Last Admin: 07/25/20 16:24 Dose: 4 mg Documented by: ADRIAN Ondansetron HCl (Zofran Odt) 4 mg PO Q6H PRN PRN Reason: Nausea able to take PO Pantoprazole Sodium (Protonix Iv) 40 mg IV Q12H JUDIE Last Admin: 07/25/20 16:24 Dose: 40 mg Documented by: ADRIAN Senna/Docusate Sodium (Senna Plus) 1 tab PO BID PRN PRN Reason: Constipation Sodium Chloride (Saline Flush) 10 ml FLUSH ASDIRECTED PRN PRN Reason: Keep Vein Open Labs: Laboratory Tests 07/25/20 07/25/20 07/25/20 Range/Units 14:04 14:13 14:13 WBC 21.0 H (4.5-11.0) K/uL RBC 5.25 (4.30-5.90) M/uL Hgb 15.8 H D (12.0-15.0) g/dL Hct 50.3 (40.0-54.0) % MCV 96 (80-98) fL MCH 30 (27-31) pg MCHC 31 L (32-36) % Plt Count 319 (150-400) K/uL Neut % (Auto) 86 H (36-66) % Lymph % (Auto) 7 L (24-44) % Grand % (Auto) 6 (2-6) % Eos % (Auto) 0 L (2-4) % Baso % (Auto) 1 (0-1) % Puncture Site Lt radial ABG pH 7.094 L* (7.350-7.450) ABG pCO2 10.3 L* (35.0-42.0) mmHg ABG pO2 147.0 H (75.0-100.0) mmHg ABG HCO3 3.0 L (22.0-26.0) mmol/L ABG Total CO2 2.8 L (23.0-27.0) mmol/L ABG O2 Saturation 97.9 (95.0-98.0) % ABG O2 Content 21.9 (15.0-23.0) %vol ABG Base Excess -27.5 mm/L ABG Hemoglobin 16.1 (13.5-18.0) g/dL ABG Oxyhemoglobin 95.6 % ABG Carboxyhemoglobin 1.1 (0.0-1.6) % ABG Methemoglobin 1.2 % [place] Test Passed O2 Delivery Device Room air Sodium (140-148) mmol/L Potassium (3.6-5.2) mmol/L Chloride (100-108) mmol/L Carbon Dioxide (21-32) mmol/L Anion Gap (5.0-14.0) mmol/L BUN (7-18) mg/dL Creatinine (0.8-1.3) mg/dL Est Cr Clr Drug Dosing mL/min Estimated GFR (MDRD) (>60) Glucose (74-106) mg/dL POC Glucose 448 H (74-106) MG/DL Lactic Acid (0.4-2.0) mmol/L Calcium (8.5-10.1) mg/dL Magnesium (1.8-2.4) mg/dL Total Bilirubin (0.2-1.0) mg/dL AST (15-37) U/L ALT (12-78) U/L Alkaline Phosphatase (46-116) U/L C-Reactive Protein (0.0-0.3) mg/dL Total Protein (6.4-8.2) g/dL Albumin (3.4-5.0) g/dL Globulin (2.3-3.5) g/dL Albumin/Globulin Ratio (1.2-2.2) Amylase (25-115) U/L Lipase (73-393) U/L Ketones (NEGATIVE) SARS Virus RNA (PCR) (NEGATIVE) 07/25/20 07/25/20 07/25/20 Range/Units 14:13 14:13 14:13 WBC (4.5-11.0) K/uL RBC (4.30-5.90) M/uL Hgb (12.0-15.0) g/dL Hct (40.0-54.0) % MCV (80-98) fL MCH (27-31) pg MCHC (32-36) % Plt Count (150-400) K/uL Neut % (Auto) (36-66) % Lymph % (Auto) (24-44) % Grand % (Auto) (2-6) % Eos % (Auto) (2-4) % Baso % (Auto) (0-1) % Puncture Site ABG pH (7.350-7.450) ABG pCO2 (35.0-42.0) mmHg ABG pO2 (75.0-100.0) mmHg ABG HCO3 (22.0-26.0) mmol/L ABG Total CO2 (23.0-27.0) mmol/L ABG O2 Saturation (95.0-98.0) % ABG O2 Content (15.0-23.0) %vol ABG Base Excess mm/L ABG Hemoglobin (13.5-18.0) g/dL ABG Oxyhemoglobin % ABG Carboxyhemoglobin (0.0-1.6) % ABG Methemoglobin % [place] Test O2 Delivery Device Sodium 143 (140-148) mmol/L Potassium 4.2 (3.6-5.2) mmol/L Chloride 96 L (100-108) mmol/L Carbon Dioxide 8 L (21-32) mmol/L Anion Gap 43.2 H (5.0-14.0) mmol/L BUN 23 H D (7-18) mg/dL Creatinine 2.5 H D (0.8-1.3) mg/dL Est Cr Clr Drug Dosing 20.10 mL/min Estimated GFR (MDRD) 25 L (>60) Glucose 519 H* (74-106) mg/dL POC Glucose (74-106) MG/DL Lactic Acid 6.2 H (0.4-2.0) mmol/L Calcium 9.4 D (8.5-10.1) mg/dL Magnesium (1.8-2.4) mg/dL Total Bilirubin 0.7 (0.2-1.0) mg/dL AST 12 L (15-37) U/L ALT 18 (12-78) U/L Alkaline Phosphatase 105 (46-116) U/L C-Reactive Protein 0.08 (0.0-0.3) mg/dL Total Protein 7.9 (6.4-8.2) g/dL Albumin 4.7 (3.4-5.0) g/dL Globulin 3.2 (2.3-3.5) g/dL Albumin/Globulin Ratio 1.5 (1.2-2.2) Amylase (25-115) U/L Lipase (73-393) U/L Ketones Moderate H (NEGATIVE) SARS Virus RNA (PCR) (NEGATIVE) 07/25/20 07/25/20 Range/Units 14:13 14:58 WBC (4.5-11.0) K/uL RBC (4.30-5.90) M/uL Hgb (12.0-15.0) g/dL Hct (40.0-54.0) % MCV (80-98) fL MCH (27-31) pg MCHC (32-36) % Plt Count (150-400) K/uL Neut % (Auto) (36-66) % Lymph % (Auto) (24-44) % Grand % (Auto) (2-6) % Eos % (Auto) (2-4) % Baso % (Auto) (0-1) % Puncture Site ABG pH (7.350-7.450) ABG pCO2 (35.0-42.0) mmHg ABG pO2 (75.0-100.0) mmHg ABG HCO3 (22.0-26.0) mmol/L ABG Total CO2 (23.0-27.0) mmol/L ABG O2 Saturation (95.0-98.0) % ABG O2 Content (15.0-23.0) %vol ABG Base Excess mm/L ABG Hemoglobin (13.5-18.0) g/dL ABG Oxyhemoglobin % ABG Carboxyhemoglobin (0.0-1.6) % ABG Methemoglobin % [place] Test O2 Delivery Device Sodium (140-148) mmol/L Potassium (3.6-5.2) mmol/L Chloride (100-108) mmol/L Carbon Dioxide (21-32) mmol/L Anion Gap (5.0-14.0) mmol/L BUN (7-18) mg/dL Creatinine (0.8-1.3) mg/dL Est Cr Clr Drug Dosing mL/min Estimated GFR (MDRD) (>60) Glucose (74-106) mg/dL POC Glucose (74-106) MG/DL Lactic Acid (0.4-2.0) mmol/L Calcium (8.5-10.1) mg/dL Magnesium 2.3 (1.8-2.4) mg/dL Total Bilirubin (0.2-1.0) mg/dL AST (15-37) U/L ALT (12-78) U/L Alkaline Phosphatase (46-116) U/L C-Reactive Protein (0.0-0.3) mg/dL Total Protein (6.4-8.2) g/dL Albumin (3.4-5.0) g/dL Globulin (2.3-3.5) g/dL Albumin/Globulin Ratio (1.2-2.2) Amylase 26 (25-115) U/L Lipase 91 (73-393) U/L Ketones (NEGATIVE) SARS Virus RNA (PCR) Negative (NEGATIVE) Patient lab work reviewed, Dr. Reagan notified, patient will be admitted to ICU. Patient and significant other in agreement with plan. Ketoacidosis Metabolic acidosis Hyperglycemia Leukocytosis EYAD Meds: Medications Generic Name Dose Route Start Last Admin Trade Name Freq PRN Reason Stop Dose Admin Acetaminophen 650 mg 07/25/20 15:41 Tylenol PO Q4H PRN Pain (Mild 1-3)/fever Albuterol 2.5 mg 07/25/20 15:41 Proventil Neb Soln NEB Q4H PRN Shortness Of Breath/wheezing Hydromorphone HCl 0.5 mg 07/25/20 15:41 Dilaudid IVPUSH Q2H PRN Pain Insulin Regular in 0.9 % NACL 100 mls @ 5.4 mls/hr 07/25/20 15:15 Myxredlin 100 Unit/100 Ml IV ASDIRECTED JUDIE Protocol 0.1 UNITS/KG/HR Potassium Chloride/Sodium Chloride 1,000 mls @ 125 mls/hr 07/25/20 15:41 07/25/20 17:05 Normal Saline With 20 Meq Kcl IV 125 mls/hr ASDIRECTED JUDIE Administration Lorazepam 0.5 mg 07/25/20 15:41 Ativan IVPUSH Q4H PRN Nausea/Vomiting Magnesium Hydroxide 30 ml 07/25/20 15:41 Milk Of Magnesia PO Q12H PRN Constipation Melatonin 9 mg 07/25/20 15:41 Melatonin PO BEDTIME PRN Sleep Ondansetron HCl 4 mg 07/25/20 15:41 07/25/20 16:24 Zofran IV 4 mg Q6H PRN Administration Nausea/Vomiting Ondansetron HCl 4 mg 07/25/20 15:41 Zofran Odt PO Q6H PRN Nausea able to take PO Pantoprazole Sodium 40 mg 07/25/20 16:00 07/25/20 16:24 Protonix Iv IV 40 mg Q12H JUDIE Administration Senna/Docusate Sodium 1 tab 07/25/20 15:41 Senna Plus PO BID PRN Constipation Sodium Chloride 10 ml 07/25/20 13:57 Saline Flush FLUSH ASDIRECTED PRN Keep Vein Open Discontinued Medications Generic Name Dose Route Start Last Admin Trade Name Freq PRN Reason Stop Dose Admin Sodium Chloride 1,000 mls @ 500 mls/hr 07/25/20 14:00 07/25/20 14:13 Normal Saline IV 500 mls/hr ASDIRECTED JUDIE Administration Insulin Regular in 0.9 % NACL 100 mls @ 5.4 mls/hr 07/25/20 14:30 07/25/20 18:01 Myxredlin 100 Unit/100 Ml IV 0.11 units/kg/hr ASDIRECTED JUDIE 6 mls/hr Infusion 0.1 UNITS/KG/HR Sodium Chloride 1,000 mls @ 999 mls/hr 07/25/20 15:41 07/25/20 16:06 Normal Saline IV 07/25/20 16:41 999 mls/hr .BOLUS ONE Administration Insulin Human Regular 10 unit 07/25/20 14:24 07/25/20 14:40 Humulin R IVPUSH 07/25/20 14:25 10 units ONETIME ONE Administration Ondansetron HCl 4 mg 07/25/20 14:16 07/25/20 14:32 Zofran IVPUSH 07/25/20 14:17 4 mg ONETIME ONE Administration - Re-Assessments/Exams Free Text/Narrative Re-Assessment/Exam: 07/25/20 14:39 Dr. Reagan present to evaluate and admit patient. Departure - Departure Time of Disposition: 14:41 Disposition: Admitted As Inpatient 68 Clinical Impression: Nausea & vomiting, Ketoacidosis, Metabolic acidosis due to diabetes mellitus, Hyperglycemia due to diabetes mellitus, Leukocytosis, EYAD (acute kidney injury) - Discharge Information Sepsis Event Note (ED) - Evaluation Sepsis Screening Result: Possible Sepsis Risk - Focused Exam Vital Signs: Vital Signs Temp Pulse Resp BP Pulse Ox 07/25/20 14:24 35 C L 135 H 27 H 96/63 99 07/25/20 14:11 35 C L 135 H 27 H 96/63 99 - My Orders Last 24 Hours: My Active Orders 07/25/20 13:50 UA W/MICROSCOPIC [URIN] Stat 07/25/20 13:57 Sodium Chloride 0.9% [Saline Flush] 10 ml FLUSH ASDIRECTED PRN Saline Lock Insert [OM.PC] Routine 07/25/20 14:06 Chest 1V Frontal [CR] Stat EKG 12 Lead [EK] Routine - Assessment/Plan Last 24 Hours: My Active Orders 07/25/20 13:50 UA W/MICROSCOPIC [URIN] Stat 07/25/20 13:57 Sodium Chloride 0.9% [Saline Flush] 10 ml FLUSH ASDIRECTED PRN Saline Lock Insert [OM.PC] Routine 07/25/20 14:06 Chest 1V Frontal [CR] Stat EKG 12 Lead [EK] Routine Assessment:: Ketoacidosis Metabolic acidosis Hyperglycemia Leukocytosis EYAD Plan: Patient will be admitted to ICU per Dr. Reagan.
--- NOTE | 2020-07-25 15:26 | PCM.HP.2 ---
H&P History of Present Illness - General Date of Service: 07/25/20 Admit Problem/Dx: Admission Diagnosis/Problem Admission Diagnosis/Problem Diabetic ketoacidosis Source of Information: Patient, Family, Provider History Limitations: Reports: No Limitations - History of Present Illness Initial Comments - Free Text/Narative: CC: I've been feeling crummy HPI: Raulito presents to the emergency room today with 2 days of nausea with vomiting as well as diffuse myalgias and arthralgias. He reports not feeling well for the past couple of weeks. He has had some nausea and a poor appetite as well as acute on chronic diarrhea. He has had 5-6 watery bowel movements for the past couple of days and his diarrhea had been more impressive than usual though less than the last couple of days for the 2 weeks prior. No complaints of abdominal pain. He has had multiple episodes of emesis over the past 2 days and these seem to be getting more intense. He is not aware of any fevers or chills. His appetite is never good but has been worse the last several days. He feels short of breath and this started yesterday. No chest pain or cough. He does not regularly check his blood sugar but yesterday it was about 210. He reports consuming about 6 beers per day plus or minus a couple. His last drink was yesterday morning and he has felt too bad to drink since that time. Work-up in the emergency room revealed evidence for diabetic ketoacidosis with a pH of 7.0, significant hyperglycemia and a bicarbonate level of less than 10. His white count is elevated but there is no impressive evidence for infection. COVID testing was negative. CRP is normal. He has received insulin and some fluids. He is going to be admitted to the intensive care unit for further management. denies Pain Score (Numeric/FACES): 0 Lower Abdomen Pain Score (Numeric/FACES): 4 - Related Data Allergies/Adverse Reactions: Allergies Allergy/AdvReac Type Severity Reaction Status Date / Time cephalexin monohydrate Allergy Unknown Hives Verified 07/25/20 14:09 [From Keflex] codeine AdvReac Unknown Vomiting Verified 07/25/20 14:09 Home Medications: Home Meds Insulin Glarg,Human.Rec.Analog [Lantus Solostar] 20 units SQ BEDTIME 07/22/15 [History] Insulin Lispro [HumaLOG] 4 - 6 unit SUBCNJ TID 09/07/17 [History] Omeprazole 20 mg PO DAILY 12/15/19 [History] Past Medical History HEENT History: Reports: Impaired Vision Cardiovascular History: Reports: Heart Murmur Respiratory History: Reports: COPD Gastrointestinal History: Reports: GERD, Other (See Below) Other Gastrointestinal History: acid reflux Musculoskeletal History: Reports: Osteoarthritis, Other (See Below) Other Musculoskeletal History: right sciatic pain Psychiatric History: Reports: Anxiety, Depression Endocrine/Metabolic History: Reports: Diabetes, Type II Other Endocrine/Metabolic History: insulin dependent - Infectious Disease History Infectious Disease History: Reports: Chicken Pox Other Infectious Disease History: polio - Past Surgical History HEENT Surgical History: Reports: Cataract Surgery Social & Family History - Family History Family Medical History: Noncontributory - Tobacco Use Smoking Status *Q: Former Smoker Years of Tobacco use: 10 Packs/Tins Daily: 1 Used Tobacco, but Quit: Yes Month/Year Tobacco Last Used: 10 years ago - Caffeine Use Caffeine Use: Reports: Coffee Caffeine Use Comment: occasional coffee - Alcohol Use Days Per Week of Alcohol Use: 7 Number of Drinks Per Day: 6 Total Drinks Per Week: 42 - Recreational Drug Use Recreational Drug Use: No H&P Review of Systems - Review of Systems: Review Of Systems: See Below Free Text/Narrative: A complete 12 point review of systems was obtained. Pertinent positives and negatives are noted in the history of present illness. All other systems were reviewed and were negative except as noted. Exam - Exam Exam: See Below - Vital Signs Vital Signs: Last Vital Signs Temp 35 C L 07/25/20 14:24 Pulse 135 H 07/25/20 14:24 Resp 27 H 07/25/20 14:24 BP 96/63 07/25/20 14:24 Pulse Ox 99 07/25/20 14:24 Weight: 54 kg - Exam Quality Assessment: No: Supplemental Oxygen General: Alert, Oriented, Cooperative, Mild Distress (increased work of breathing ) HEENT: Conjunctiva Clear. No: Mucosa Moist & [place] (dry), Scleral Icterus Neck: Supple, Trachea Midline. No: Lymphadenopathy, Thyromegaly Lungs: Clear to Auscultation. No: Normal Respiratory Effort (tachypnea ) Cardiovascular: Regular Rhythm, Tachycardia. No: Systolic Murmur GI/Abdominal Exam: Normal Bowel Sounds, Soft, No Distention, No Mass, Tender (mild generalized ) Back Exam: Normal Inspection, Full Range of Motion Extremities: No Pedal Edema, Mottled (knees ). No: Increased Warmth Peripheral Pulses: 1+: Dorsalis Pedis (L), Dorsalis Pedis (R) Skin: Dry, Cool Neuro Extensive - Mental Status: Alert, Oriented x3, Nl Response to Commands Neuro Extensive - Motor, Sensory, Reflexes: No: Dysarthria, Abnormal Motor, Tremor Psychiatric: Alert, Normal Affect - Patient Data Lab Results Last 24 hrs: Laboratory Results - last 24 hr 07/25/20 07/25/20 07/25/20 Range/Units 14:04 14:13 14:13 WBC 21.0 H (4.5-11.0) K/uL RBC 5.25 (4.30-5.90) M/uL Hgb 15.8 H D (12.0-15.0) g/dL Hct 50.3 (40.0-54.0) % MCV 96 (80-98) fL MCH 30 (27-31) pg MCHC 31 L (32-36) % Plt Count 319 (150-400) K/uL Neut % (Auto) 86 H (36-66) % Lymph % (Auto) 7 L (24-44) % [place] % (Auto) 6 (2-6) % Eos % (Auto) 0 L (2-4) % Baso % (Auto) 1 (0-1) % Puncture Site Lt radial ABG pH 7.094 L* (7.350-7.450) ABG pCO2 10.3 L* (35.0-42.0) mmHg ABG pO2 147.0 H (75.0-100.0) mmHg ABG HCO3 3.0 L (22.0-26.0) mmol/L ABG Total CO2 2.8 L (23.0-27.0) mmol/L ABG O2 Saturation 97.9 (95.0-98.0) % ABG O2 Content 21.9 (15.0-23.0) %vol ABG Base Excess -27.5 mm/L ABG Hemoglobin 16.1 (13.5-18.0) g/dL ABG Oxyhemoglobin 95.6 % ABG Carboxyhemoglobin 1.1 (0.0-1.6) % ABG Methemoglobin 1.2 % [place] Test Passed O2 Delivery Device Room air Sodium (140-148) mmol/L Potassium (3.6-5.2) mmol/L Chloride (100-108) mmol/L Carbon Dioxide (21-32) mmol/L Anion Gap (5.0-14.0) mmol/L BUN (7-18) mg/dL Creatinine (0.8-1.3) mg/dL Est Cr Clr Drug Dosing mL/min Estimated GFR (MDRD) (>60) Glucose (74-106) mg/dL POC Glucose 448 H (74-106) MG/DL Lactic Acid (0.4-2.0) mmol/L Calcium (8.5-10.1) mg/dL Magnesium (1.8-2.4) mg/dL Total Bilirubin (0.2-1.0) mg/dL AST (15-37) U/L ALT (12-78) U/L Alkaline Phosphatase (46-116) U/L C-Reactive Protein (0.0-0.3) mg/dL Total Protein (6.4-8.2) g/dL Albumin (3.4-5.0) g/dL Globulin (2.3-3.5) g/dL Albumin/Globulin Ratio (1.2-2.2) Amylase (25-115) U/L Lipase (73-393) U/L Ketones (NEGATIVE) 07/25/20 07/25/20 07/25/20 Range/Units 14:13 14:13 14:13 WBC (4.5-11.0) K/uL RBC (4.30-5.90) M/uL Hgb (12.0-15.0) g/dL Hct (40.0-54.0) % MCV (80-98) fL MCH (27-31) pg MCHC (32-36) % Plt Count (150-400) K/uL Neut % (Auto) (36-66) % Lymph % (Auto) (24-44) % [place] % (Auto) (2-6) % Eos % (Auto) (2-4) % Baso % (Auto) (0-1) % Puncture Site ABG pH (7.350-7.450) ABG pCO2 (35.0-42.0) mmHg ABG pO2 (75.0-100.0) mmHg ABG HCO3 (22.0-26.0) mmol/L ABG Total CO2 (23.0-27.0) mmol/L ABG O2 Saturation (95.0-98.0) % ABG O2 Content (15.0-23.0) %vol ABG Base Excess mm/L ABG Hemoglobin (13.5-18.0) g/dL ABG Oxyhemoglobin % ABG Carboxyhemoglobin (0.0-1.6) % ABG Methemoglobin % [place] Test O2 Delivery Device Sodium 143 (140-148) mmol/L Potassium 4.2 (3.6-5.2) mmol/L Chloride 96 L (100-108) mmol/L Carbon Dioxide 8 L (21-32) mmol/L Anion Gap 43.2 H (5.0-14.0) mmol/L BUN 23 H D (7-18) mg/dL Creatinine 2.5 H D (0.8-1.3) mg/dL Est Cr Clr Drug Dosing 20.10 mL/min Estimated GFR (MDRD) 25 L (>60) Glucose 519 H* (74-106) mg/dL POC Glucose (74-106) MG/DL Lactic Acid 6.2 H (0.4-2.0) mmol/L Calcium 9.4 D (8.5-10.1) mg/dL Magnesium (1.8-2.4) mg/dL Total Bilirubin 0.7 (0.2-1.0) mg/dL AST 12 L (15-37) U/L ALT 18 (12-78) U/L Alkaline Phosphatase 105 (46-116) U/L C-Reactive Protein 0.08 (0.0-0.3) mg/dL Total Protein 7.9 (6.4-8.2) g/dL Albumin 4.7 (3.4-5.0) g/dL Globulin 3.2 (2.3-3.5) g/dL Albumin/Globulin Ratio 1.5 (1.2-2.2) Amylase (25-115) U/L Lipase (73-393) U/L Ketones Moderate H (NEGATIVE) 07/25/20 Range/Units 14:13 WBC (4.5-11.0) K/uL RBC (4.30-5.90) M/uL Hgb (12.0-15.0) g/dL Hct (40.0-54.0) % MCV (80-98) fL MCH (27-31) pg MCHC (32-36) % Plt Count (150-400) K/uL Neut % (Auto) (36-66) % Lymph % (Auto) (24-44) % [place] % (Auto) (2-6) % Eos % (Auto) (2-4) % Baso % (Auto) (0-1) % Puncture Site ABG pH (7.350-7.450) ABG pCO2 (35.0-42.0) mmHg ABG pO2 (75.0-100.0) mmHg ABG HCO3 (22.0-26.0) mmol/L ABG Total CO2 (23.0-27.0) mmol/L ABG O2 Saturation (95.0-98.0) % ABG O2 Content (15.0-23.0) %vol ABG Base Excess mm/L ABG Hemoglobin (13.5-18.0) g/dL ABG Oxyhemoglobin % ABG Carboxyhemoglobin (0.0-1.6) % ABG Methemoglobin % [place] Test O2 Delivery Device Sodium (140-148) mmol/L Potassium (3.6-5.2) mmol/L Chloride (100-108) mmol/L Carbon Dioxide (21-32) mmol/L Anion Gap (5.0-14.0) mmol/L BUN (7-18) mg/dL Creatinine (0.8-1.3) mg/dL Est Cr Clr Drug Dosing mL/min Estimated GFR (MDRD) (>60) Glucose (74-106) mg/dL POC Glucose (74-106) MG/DL Lactic Acid (0.4-2.0) mmol/L Calcium (8.5-10.1) mg/dL Magnesium 2.3 (1.8-2.4) mg/dL Total Bilirubin (0.2-1.0) mg/dL AST (15-37) U/L ALT (12-78) U/L Alkaline Phosphatase (46-116) U/L C-Reactive Protein (0.0-0.3) mg/dL Total Protein (6.4-8.2) g/dL Albumin (3.4-5.0) g/dL Globulin (2.3-3.5) g/dL Albumin/Globulin Ratio (1.2-2.2) Amylase 26 (25-115) U/L Lipase 91 (73-393) U/L Ketones (NEGATIVE) Result Diagrams: 07/25/20 14:13 07/25/20 14:13 Imaging Impressions Last 24 hrs: CXR-images personally reviewed-lungs clear with no mass, infiltrate or effusion. Heart size normal. EKG INTERPRETATION EKG Date: 07/25/20 Rhythm: Other (sinus tachycardia) Rate (Beats/Min): 135 [place]: Normal P-Wave: Present QRS: Normal ST-T: Depressed QT: Normal Comparison: Change From Previous EKG Sepsis Event Note - Evaluation Sepsis Screening Result: Possible Sepsis Risk - Focused Exam Vital Signs: Vital Signs Temp Pulse Resp BP Pulse Ox 07/25/20 14:24 35 C L 135 H 27 H 96/63 99 07/25/20 14:11 35 C L 135 H 27 H 96/63 99 *Q Meaningful Use (ADM) - VTE *Q VTE Pharmacological Contraindications *Q: Risk of Bleeding (possible hematemesis) - VTE Risk Assess *Q Each Risk Factor Represents 1 Point: None Total Score 1 Point Risk Factors: 0 Each Risk Factor Represents 2 Points: Age 60 - 74 Years Total Score 2 Point Risk Factors: 2 Each Risk Factor Represents 3 Points: None Total Score 3 Point Risk Factors: 0 Each Risk Factor Represents 5 Points: None Total Score 5 Point Risk Factors: 0 Venous Thromboembolism Risk Factor Score *Q: 2 - Problem List (1) Diabetic keto-acidosis SNOMED Code(s): 217605930, 754571877 ICD Code: E13.10 - OTH DIABETES MELLITUS WITH KETOACIDOSIS WITHOUT COMA Status: Acute Current Visit: No Qualifiers: Diabetes mellitus type: type 1 Diabetes mellitus complication detail: without coma Qualified Code(s): E10.10 - Type 1 diabetes mellitus with ketoacidosis without coma (2) High anion gap metabolic acidosis SNOMED Code(s): 17580231 ICD Code: E87.2 - ACIDOSIS Status: Acute Current Visit: No (3) Acute kidney injury SNOMED Code(s): 17307812, 79139248 ICD Code: N17.9 - ACUTE KIDNEY FAILURE, UNSPECIFIED Status: Acute Current Visit: No (4) Alcohol dependence SNOMED Code(s): 36505643 ICD Code: F10.20 - ALCOHOL DEPENDENCE, UNCOMPLICATED Status: Chronic Current Visit: Yes Qualifiers: Substance use status: uncomplicated Qualified Code(s): F10.20 - Alcohol dependence, uncomplicated Problem List Initiated/Reviewed/Updated: Yes Orders Last 24hrs: Active Orders 24 hr Category Date Time Status Patient Status Manage Transfer [TRANSFER] Routine ADT 07/25/20 15:13 Ordered Blood Glucose Check, Bedside [RC] Q1H Care 07/25/20 16:00 Active Communication Order [RC] ASDIRECTED Care 07/25/20 15:10 Active Diabetes Education [RC] Click to Edit Care 07/25/20 15:10 Active EKG Documentation Completion [RC] ASDIRECTED Care 07/25/20 14:07 Active Notify Provider [RC] PRN Care 07/25/20 15:10 Active Chest 1V Frontal [CR] Stat Exams 07/25/20 14:06 Taken CORONAVIRUS COVID-19 CARLOS [MOLEC] Routine Lab 07/25/20 14:58 Ordered UA W/MICROSCOPIC [URIN] Stat Lab 07/25/20 13:50 Ordered Insulin Regular in 0.9 % NACL [Myxredlin 100 UNIT/100 Med 07/25/20 15:15 Active ML] 100 ml IV ASDIRECTED Sodium Chloride 0.9% [Normal Saline] 1,000 ml Med 07/25/20 14:00 Active IV ASDIRECTED Sodium Chloride 0.9% [Saline Flush] Med 07/25/20 13:57 Active 10 ml FLUSH ASDIRECTED PRN Saline Lock Insert [OM.PC] Routine Oth 07/25/20 13:57 Ordered Resuscitation Status Routine Resus Stat 07/25/20 15:14 Ordered EKG 12 Lead [EK] Routine Ther 07/25/20 14:06 Ordered Medication Orders Sodium Chloride (Normal Saline) 1,000 mls @ 500 mls/hr IV ASDIRECTED JUDIE Last Admin: 07/25/20 14:13 Dose: 500 mls/hr Documented by: ANEUDY Insulin Regular in 0.9 % NACL (Myxredlin 100 Unit/100 Ml) 100 mls @ 5.4 mls/hr IV ASDIRECTED JUDIE; Protocol Sodium Chloride (Saline Flush) 10 ml FLUSH ASDIRECTED PRN PRN Reason: Keep Vein Open Assessment/Plan Comment:: ASSESSMENT AND PLAN - Diabetic ketoacidosis-no obvious trigger at this time. He does not check his sugars regularly with his insulin-dependent diabetes. This is associated with severe acidosis with a pH of only 7.0 and a bicarbonate level of less than 10. Blood sugars greater than 500. He does have a history of similar with his last episode in December of this year. He has received some IV insulin. He has rece ived a liter of fluids. His potassium is currently normal. He will be admitted to the intensive care unit on an insulin drip for further management. -Second 1 L bolus of normal saline -Normal saline with potassium starting after that -Low-dose insulin drip -Q1H accuchecks -Q4H BMP -Lyme serology to try to explain his diffuse, migratory arthralgias Acute kidney injury-creatinine significantly elevated at 2.5. Likely secondary to dehydration in setting of acute kidney injury. -Aggressive IV fluids -Serial laboratory studies Possible hematemesis-2 weeks of nausea, some vomiting and diarrhea. Possible small quantities of blood in the emesis. No significant pain at this time. -CT scan of the abdomen and pelvis this afternoon -Twice daily proton pump inhibitor -Consider EGD once stable Alcohol dependence-he drinks about 6 cans of beer per day. No history of alcohol withdrawal. Maintenance issues - - DVT prophylaxis -mechanical - GI prophylaxis -PPI - Nutrition -nothing by mouth - Christianson catheter -not indicated CODE STATUS -full code Admission justification -this patient will be admitted for inpatient services and is medically appropriate meeting medical necessity for inpatient admission as outlined in my documentation. I reasonably expect the patient will require inpatient services that span a period time over 2 midnights. I reasonably expect this patient to be discharged or transferred within 96 hours [facility]. Disposition -I would anticipate discharge home after the hospital stay Primary care physician -Dr Yaniv Reagan M.D. - Mortality Measure Prognosis:: Good
[2020-07-25] MEDS ORDERED: LORazepam 2 MG/ML SDV IVPUSH PRN (15:41)
[2020-07-25] MEDS ORDERED: Sodium Chloride 0.9% 1,000 ML IV ONE (15:41)
[2020-07-25] MEDS ORDERED: Albuterol 0.083% 2.5 MG/3 ML Neb Soln NEB PRN (15:41)
[2020-07-25] MEDS ORDERED: Melatonin 3 MG Tab PO PRN (15:41)
[2020-07-25] MEDS ORDERED: HYDROmorphone 1 MG/ML Syringe IVPUSH PRN (15:41)
[2020-07-25] MEDS ORDERED: Ondansetron 4 MG/2 ML SDV IV PRN (15:41)
[2020-07-25] MEDS ORDERED: Ondansetron 4 MG Tab.DIS PO PRN (15:41)
[2020-07-25] MEDS ORDERED: Magnesium Hydroxide 400 MG/5 ML Susp 30 ML Cup PO PRN (15:41)
[2020-07-25] MEDS ORDERED: Acetaminophen 325 MG Tab PO PRN (15:41)
[2020-07-25] MEDS ORDERED: Pantoprazole 40 MG Vial IV SCH (16:00)
[2020-07-25] MEDS: NS + KCl 20mEq/L 1,000 ML IV SCH (17:05)
--- NOTE | 2020-07-25 17:41 | CRLCT ---
INDICATION: Diffuse abdominal pain, vomiting, diarrhea TECHNIQUE: CT Abdomen and pelvis without i.v. contrast. Coronal and sagittal reformats were obtained. COMPARISON: None FINDINGS: Moderate degradation of image quality is present due to the patient`s inability to maintain a breath hold. Lower chest: Unremarkable. Liver: There is a curvilinear hyperdense lesion near the hcloe hepatis that measures 2.8 x 0.9 cm. There is a lesion in the subcapsular left medial segment of the liver abutting the falciform ligament is noted measuring 9 mm. These are incompletely characterized without the use of intravenous contrast. Spleen: Unremarkable. Pancreas: Unremarkable. Gallbladder: Unremarkable. Kidney: There is a parapelvic cyst in the lower pole of the right kidney measuring 3.6 x 2.9 cm. Adrenal: Unremarkable. Bowel: Mild sigmoid diverticulosis is present with no evidence of diverticulitis. Mild fluid distention of the stomach is noted. The appendix is normal in appearance and size. Vascular: Diffuse atherosclerotic calcifications of the abdominal aorta and its tributaries are present. Lymph: Unremarkable. Peritoneum: Unremarkable. No pneumoperitoneum is seen. No significant ascites is noted. Pelvis: Mild to moderate bladder distention is noted. Mild enlargement of the prostate gland is present. Soft tissue: Unremarkable. Bone: Unremarkable for age. IMPRESSION: 1. Unremarkable with no CT correlate for the patient`s symptoms seen. Dictated by Edis Dixon MD @ 07/25/2020 5:39:55 PM Please note that all CT scans at this facility use dose modulation, iterative reconstruction, and/or weight-based dosing when appropriate to reduce radiation dose to as low as reasonably achievable. Dictated by: Edis Dixon MD @ 07/25/2020 17:40:00 (Electronically Signed)
[2020-07-26] MEDS: NS + KCl 20mEq/L 1,000 ML IV SCH (00:48)
[2020-07-26] MEDS: Pantoprazole 40 MG Vial IV SCH ×2 (08:08→20:59)
[2020-07-26] MEDS ORDERED: Dextrose 5%-0.9% NaCl 1,000 ML IV SCH (08:15)
--- NOTE | 2020-07-26 10:29 | PCM.PN ---
- General Info Date of Service: 07/26/20 Subjective Update: No acute events overnight. We have seen a slow but steady improvement in vital signs and laboratory studies. Heart rate has trended down. Tachypnea has improved. His acid-base balance has steadily trended in the right direction but he does still remain mildly acidotic with an elevated anion gap. His blood sugar has normalized and he is currently receiving a dextrose infusion. Insulin drip continues. Potassium remains normal. Chronic back pain is stable. Mild nausea but no vomiting. Functional Status: Reports: Pain Controlled - Review of Systems General: Denies: Fever - Patient Data Vitals - Most Recent: Last Vital Signs Temp 36.2 C 07/26/20 08:00 Pulse 90 07/26/20 10:00 Resp 10 L 07/26/20 10:00 BP 129/61 07/26/20 10:00 Pulse Ox 97 07/26/20 10:00 Weight - Most Recent: 57.3 kg I&O - Last 24 Hours: Intake & Output 07/25/20 07/26/20 07/26/20 22:59 06:59 14:59 Intake Total 1000 1649 258 Output Total 700 Balance 1000 949 258 Lab Results Last 24 Hours: Laboratory Results - last 24 hr 07/25/20 07/25/20 07/25/20 Range/Units 14:04 14:13 14:13 WBC 21.0 H (4.5-11.0) K/uL RBC 5.25 (4.30-5.90) M/uL Hgb 15.8 H D (12.0-15.0) g/dL Hct 50.3 (40.0-54.0) % MCV 96 (80-98) fL MCH 30 (27-31) pg MCHC 31 L (32-36) % Plt Count 319 (150-400) K/uL Neut % (Auto) 86 H (36-66) % Lymph % (Auto) 7 L (24-44) % Meagher % (Auto) 6 (2-6) % Eos % (Auto) 0 L (2-4) % Baso % (Auto) 1 (0-1) % Puncture Site Lt radial ABG pH 7.094 L* (7.350-7.450) ABG pCO2 10.3 L* (35.0-42.0) mmHg ABG pO2 147.0 H (75.0-100.0) mmHg ABG HCO3 3.0 L (22.0-26.0) mmol/L ABG Total CO2 2.8 L (23.0-27.0) mmol/L ABG O2 Saturation 97.9 (95.0-98.0) % ABG O2 Content 21.9 (15.0-23.0) %vol ABG Base Excess -27.5 mm/L ABG Hemoglobin 16.1 (13.5-18.0) g/dL ABG Oxyhemoglobin 95.6 % ABG Carboxyhemoglobin 1.1 (0.0-1.6) % ABG Methemoglobin 1.2 % [place] Test Passed O2 Delivery Device Room air Sodium (140-148) mmol/L Potassium (3.6-5.2) mmol/L Chloride (100-108) mmol/L Carbon Dioxide (21-32) mmol/L Anion Gap (5.0-14.0) mmol/L BUN (7-18) mg/dL Creatinine (0.8-1.3) mg/dL Est Cr Clr Drug Dosing mL/min Estimated GFR (MDRD) (>60) Glucose (74-106) mg/dL POC Glucose 448 H (74-106) MG/DL Lactic Acid (0.4-2.0) mmol/L Calcium (8.5-10.1) mg/dL Magnesium (1.8-2.4) mg/dL Total Bilirubin (0.2-1.0) mg/dL AST (15-37) U/L ALT (12-78) U/L Alkaline Phosphatase (46-116) U/L C-Reactive Protein (0.0-0.3) mg/dL Total Protein (6.4-8.2) g/dL Albumin (3.4-5.0) g/dL Globulin (2.3-3.5) g/dL Albumin/Globulin Ratio (1.2-2.2) Amylase (25-115) U/L Lipase (73-393) U/L Urine Color (YELLOW) Urine Appearance (CLEAR) Urine pH (5.0-8.0) Ur Specific [place] (1.008-1.030) Urine Protein (NEGATIVE) mg/dL Urine Glucose (UA) (NEGATIVE) mg/dL Urine Ketones (NEGATIVE) mg/dL Urine Occult Blood (NEGATIVE) Urine Nitrite (NEGATIVE) Urine Bilirubin (NEGATIVE) Urine Urobilinogen (0.2-1.0) EU/dL Ur Leukocyte Esterase (NEGATIVE) Urine RBC (0-5) Urine WBC (0-5) Ur Epithelial Cells Amorphous Sediment Urine Bacteria Urine Mucus Ketones (NEGATIVE) SARS Virus RNA (PCR) (NEGATIVE) 07/25/20 07/25/20 07/25/20 Range/Units 14:13 14:13 14:13 WBC (4.5-11.0) K/uL RBC (4.30-5.90) M/uL Hgb (12.0-15.0) g/dL Hct (40.0-54.0) % MCV (80-98) fL MCH (27-31) pg MCHC (32-36) % Plt Count (150-400) K/uL Neut % (Auto) (36-66) % Lymph % (Auto) (24-44) % Meagher % (Auto) (2-6) % Eos % (Auto) (2-4) % Baso % (Auto) (0-1) % Puncture Site ABG pH (7.350-7.450) ABG pCO2 (35.0-42.0) mmHg ABG pO2 (75.0-100.0) mmHg ABG HCO3 (22.0-26.0) mmol/L ABG Total CO2 (23.0-27.0) mmol/L ABG O2 Saturation (95.0-98.0) % ABG O2 Content (15.0-23.0) %vol ABG Base Excess mm/L ABG Hemoglobin (13.5-18.0) g/dL ABG Oxyhemoglobin % ABG Carboxyhemoglobin (0.0-1.6) % ABG Methemoglobin % [place] Test O2 Delivery Device Sodium 143 (140-148) mmol/L Potassium 4.2 (3.6-5.2) mmol/L Chloride 96 L (100-108) mmol/L Carbon Dioxide 8 L (21-32) mmol/L Anion Gap 43.2 H (5.0-14.0) mmol/L BUN 23 H D (7-18) mg/dL Creatinine 2.5 H D (0.8-1.3) mg/dL Est Cr Clr Drug Dosing 20.10 mL/min Estimated GFR (MDRD) 25 L (>60) Glucose 519 H* (74-106) mg/dL POC Glucose (74-106) MG/DL Lactic Acid 6.2 H (0.4-2.0) mmol/L Calcium 9.4 D (8.5-10.1) mg/dL Magnesium (1.8-2.4) mg/dL Total Bilirubin 0.7 (0.2-1.0) mg/dL AST 12 L (15-37) U/L ALT 18 (12-78) U/L Alkaline Phosphatase 105 (46-116) U/L C-Reactive Protein 0.08 (0.0-0.3) mg/dL Total Protein 7.9 (6.4-8.2) g/dL Albumin 4.7 (3.4-5.0) g/dL Globulin 3.2 (2.3-3.5) g/dL Albumin/Globulin Ratio 1.5 (1.2-2.2) Amylase (25-115) U/L Lipase (73-393) U/L Urine Color (YELLOW) Urine Appearance (CLEAR) Urine pH (5.0-8.0) Ur Specific [place] (1.008-1.030) Urine Protein (NEGATIVE) mg/dL Urine Glucose (UA) (NEGATIVE) mg/dL Urine Ketones (NEGATIVE) mg/dL Urine Occult Blood (NEGATIVE) Urine Nitrite (NEGATIVE) Urine Bilirubin (NEGATIVE) Urine Urobilinogen (0.2-1.0) EU/dL Ur Leukocyte Esterase (NEGATIVE) Urine RBC (0-5) Urine WBC (0-5) Ur Epithelial Cells Amorphous Sediment Urine Bacteria Urine Mucus Ketones Moderate H (NEGATIVE) SARS Virus RNA (PCR) (NEGATIVE) 07/25/20 07/25/20 07/25/20 Range/Units 14:13 14:58 18:03 WBC (4.5-11.0) K/uL RBC (4.30-5.90) M/uL Hgb (12.0-15.0) g/dL Hct (40.0-54.0) % MCV (80-98) fL MCH (27-31) pg MCHC (32-36) % Plt Count (150-400) K/uL Neut % (Auto) (36-66) % Lymph % (Auto) (24-44) % Meagher % (Auto) (2-6) % Eos % (Auto) (2-4) % Baso % (Auto) (0-1) % Puncture Site ABG pH (7.350-7.450) ABG pCO2 (35.0-42.0) mmHg ABG pO2 (75.0-100.0) mmHg ABG HCO3 (22.0-26.0) mmol/L ABG Total CO2 (23.0-27.0) mmol/L ABG O2 Saturation (95.0-98.0) % ABG O2 Content (15.0-23.0) %vol ABG Base Excess mm/L ABG Hemoglobin (13.5-18.0) g/dL ABG Oxyhemoglobin % ABG Carboxyhemoglobin (0.0-1.6) % ABG Methemoglobin % [place] Test O2 Delivery Device Sodium 142 (140-148) mmol/L Potassium 4.3 (3.6-5.2) mmol/L Chloride 102 (100-108) mmol/L Carbon Dioxide 6 L (21-32) mmol/L Anion Gap 38.3 H (5.0-14.0) mmol/L BUN 27 H (7-18) mg/dL Creatinine 2.2 H (0.8-1.3) mg/dL Est Cr Clr Drug Dosing 22.84 mL/min Estimated GFR (MDRD) 29 L (>60) Glucose 434 H* (74-106) mg/dL POC Glucose (74-106) MG/DL Lactic Acid (0.4-2.0) mmol/L Calcium 8.0 L (8.5-10.1) mg/dL Magnesium 2.3 (1.8-2.4) mg/dL Total Bilirubin (0.2-1.0) mg/dL AST (15-37) U/L ALT (12-78) U/L Alkaline Phosphatase (46-116) U/L C-Reactive Protein (0.0-0.3) mg/dL Total Protein (6.4-8.2) g/dL Albumin (3.4-5.0) g/dL Globulin (2.3-3.5) g/dL Albumin/Globulin Ratio (1.2-2.2) Amylase 26 (25-115) U/L Lipase 91 (73-393) U/L Urine Color (YELLOW) Urine Appearance (CLEAR) Urine pH (5.0-8.0) Ur Specific [place] (1.008-1.030) Urine Protein (NEGATIVE) mg/dL Urine Glucose (UA) (NEGATIVE) mg/dL Urine Ketones (NEGATIVE) mg/dL Urine Occult Blood (NEGATIVE) Urine Nitrite (NEGATIVE) Urine Bilirubin (NEGATIVE) Urine Urobilinogen (0.2-1.0) EU/dL Ur Leukocyte Esterase (NEGATIVE) Urine RBC (0-5) Urine WBC (0-5) Ur Epithelial Cells Amorphous Sediment Urine Bacteria Urine Mucus Ketones (NEGATIVE) SARS Virus RNA (PCR) Negative (NEGATIVE) 07/25/20 07/25/20 07/25/20 Range/Units 18:03 22:07 22:07 WBC (4.5-11.0) K/uL RBC (4.30-5.90) M/uL Hgb (12.0-15.0) g/dL Hct (40.0-54.0) % MCV (80-98) fL MCH (27-31) pg MCHC (32-36) % Plt Count (150-400) K/uL Neut % (Auto) (36-66) % Lymph % (Auto) (24-44) % Meagher % (Auto) (2-6) % Eos % (Auto) (2-4) % Baso % (Auto) (0-1) % Puncture Site ABG pH (7.350-7.450) ABG pCO2 (35.0-42.0) mmHg ABG pO2 (75.0-100.0) mmHg ABG HCO3 (22.0-26.0) mmol/L ABG Total CO2 (23.0-27.0) mmol/L ABG O2 Saturation (95.0-98.0) % ABG O2 Content (15.0-23.0) %vol ABG Base Excess mm/L ABG Hemoglobin (13.5-18.0) g/dL ABG Oxyhemoglobin % ABG Carboxyhemoglobin (0.0-1.6) % ABG Methemoglobin % [place] Test O2 Delivery Device Sodium 143 (140-148) mmol/L Potassium 4.4 (3.6-5.2) mmol/L Chloride 107 (100-108) mmol/L Carbon Dioxide 16 L (21-32) mmol/L Anion Gap 24.4 H (5.0-14.0) mmol/L BUN 27 H (7-18) mg/dL Creatinine 2.0 H (0.8-1.3) mg/dL Est Cr Clr Drug Dosing 25.13 mL/min Estimated GFR (MDRD) 33 L (>60) Glucose 228 H (74-106) mg/dL POC Glucose (74-106) MG/DL Lactic Acid 3.9 H 1.5 (0.4-2.0) mmol/L Calcium 8.1 L (8.5-10.1) mg/dL Magnesium (1.8-2.4) mg/dL Total Bilirubin (0.2-1.0) mg/dL AST (15-37) U/L ALT (12-78) U/L Alkaline Phosphatase (46-116) U/L C-Reactive Protein (0.0-0.3) mg/dL Total Protein (6.4-8.2) g/dL Albumin (3.4-5.0) g/dL Globulin (2.3-3.5) g/dL Albumin/Globulin Ratio (1.2-2.2) Amylase (25-115) U/L Lipase (73-393) U/L Urine Color (YELLOW) Urine Appearance (CLEAR) Urine pH (5.0-8.0) Ur Specific [place] (1.008-1.030) Urine Protein (NEGATIVE) mg/dL Urine Glucose (UA) (NEGATIVE) mg/dL Urine Ketones (NEGATIVE) mg/dL Urine Occult Blood (NEGATIVE) Urine Nitrite (NEGATIVE) Urine Bilirubin (NEGATIVE) Urine Urobilinogen (0.2-1.0) EU/dL Ur Leukocyte Esterase (NEGATIVE) Urine RBC (0-5) Urine WBC (0-5) Ur Epithelial Cells Amorphous Sediment Urine Bacteria Urine Mucus Ketones (NEGATIVE) SARS Virus RNA (PCR) (NEGATIVE) 07/26/20 07/26/20 07/26/20 Range/Units 02:11 05:30 06:00 WBC 13.6 H (4.5-11.0) K/uL RBC 4.09 L (4.30-5.90) M/uL Hgb 12.1 D (12.0-15.0) g/dL Hct 37.7 L (40.0-54.0) % MCV 92 (80-98) fL MCH 30 (27-31) pg MCHC 32 (32-36) % Plt Count 201 (150-400) K/uL Neut % (Auto) (36-66) % Lymph % (Auto) (24-44) % Meagher % (Auto) (2-6) % Eos % (Auto) (2-4) % Baso % (Auto) (0-1) % Puncture Site ABG pH (7.350-7.450) ABG pCO2 (35.0-42.0) mmHg ABG pO2 (75.0-100.0) mmHg ABG HCO3 (22.0-26.0) mmol/L ABG Total CO2 (23.0-27.0) mmol/L ABG O2 Saturation (95.0-98.0) % ABG O2 Content (15.0-23.0) %vol ABG Base Excess mm/L ABG Hemoglobin (13.5-18.0) g/dL ABG Oxyhemoglobin % ABG Carboxyhemoglobin (0.0-1.6) % ABG Methemoglobin % [place] Test O2 Delivery Device Sodium 145 (140-148) mmol/L Potassium 4.1 (3.6-5.2) mmol/L Chloride 109 H (100-108) mmol/L Carbon Dioxide 21 (21-32) mmol/L Anion Gap 19.1 H (5.0-14.0) mmol/L BUN 23 H (7-18) mg/dL Creatinine 1.7 H (0.8-1.3) mg/dL Est Cr Clr Drug Dosing 29.56 mL/min Estimated GFR (MDRD) 40 L (>60) Glucose 152 H (74-106) mg/dL POC Glucose (74-106) MG/DL Lactic Acid (0.4-2.0) mmol/L Calcium 7.9 L (8.5-10.1) mg/dL Magnesium (1.8-2.4) mg/dL Total Bilirubin (0.2-1.0) mg/dL AST (15-37) U/L ALT (12-78) U/L Alkaline Phosphatase (46-116) U/L C-Reactive Protein (0.0-0.3) mg/dL Total Protein (6.4-8.2) g/dL Albumin (3.4-5.0) g/dL Globulin (2.3-3.5) g/dL Albumin/Globulin Ratio (1.2-2.2) Amylase (25-115) U/L Lipase (73-393) U/L Urine Color Yellow (YELLOW) Urine Appearance Clear (CLEAR) Urine pH 5.5 (5.0-8.0) Ur Specific [place] 1.025 (1.008-1.030) Urine Protein 30 H (NEGATIVE) mg/dL Urine Glucose (UA) 500 H (NEGATIVE) mg/dL Urine Ketones 80 H (NEGATIVE) mg/dL Urine Occult Blood Trace-intact H (NEGATIVE) Urine Nitrite Negative (NEGATIVE) Urine Bilirubin Small H (NEGATIVE) Urine Urobilinogen 0.2 (0.2-1.0) EU/dL Ur Leukocyte Esterase Negative (NEGATIVE) Urine RBC 0-5 (0-5) Urine WBC 0-5 (0-5) Ur Epithelial Cells Rare Amorphous Sediment Not seen Urine Bacteria Few Urine Mucus Not seen Ketones (NEGATIVE) SARS Virus RNA (PCR) (NEGATIVE) 07/26/20 Range/Units 06:00 WBC (4.5-11.0) K/uL RBC (4.30-5.90) M/uL Hgb (12.0-15.0) g/dL Hct (40.0-54.0) % MCV (80-98) fL MCH (27-31) pg MCHC (32-36) % Plt Count (150-400) K/uL Neut % (Auto) (36-66) % Lymph % (Auto) (24-44) % [place] % (Auto) (2-6) % Eos % (Auto) (2-4) % Baso % (Auto) (0-1) % Puncture Site ABG pH (7.350-7.450) ABG pCO2 (35.0-42.0) mmHg ABG pO2 (75.0-100.0) mmHg ABG HCO3 (22.0-26.0) mmol/L ABG Total CO2 (23.0-27.0) mmol/L ABG O2 Saturation (95.0-98.0) % ABG O2 Content (15.0-23.0) %vol ABG Base Excess mm/L ABG Hemoglobin (13.5-18.0) g/dL ABG Oxyhemoglobin % ABG Carboxyhemoglobin (0.0-1.6) % ABG Methemoglobin % [place] Test O2 Delivery Device Sodium 145 (140-148) mmol/L Potassium 3.9 (3.6-5.2) mmol/L Chloride 111 H (100-108) mmol/L Carbon Dioxide 19 L (21-32) mmol/L Anion Gap 18.9 H (5.0-14.0) mmol/L BUN 22 H (7-18) mg/dL Creatinine 1.5 H (0.8-1.3) mg/dL Est Cr Clr Drug Dosing 33.50 mL/min Estimated GFR (MDRD) 46 L (>60) Glucose 111 H (74-106) mg/dL POC Glucose (74-106) MG/DL Lactic Acid (0.4-2.0) mmol/L Calcium 7.8 L (8.5-10.1) mg/dL Magnesium (1.8-2.4) mg/dL Total Bilirubin (0.2-1.0) mg/dL AST (15-37) U/L ALT (12-78) U/L Alkaline Phosphatase (46-116) U/L C-Reactive Protein (0.0-0.3) mg/dL Total Protein (6.4-8.2) g/dL Albumin (3.4-5.0) g/dL Globulin (2.3-3.5) g/dL Albumin/Globulin Ratio (1.2-2.2) Amylase (25-115) U/L Lipase (73-393) U/L Urine Color (YELLOW) Urine Appearance (CLEAR) Urine pH (5.0-8.0) Ur Specific [place] (1.008-1.030) Urine Protein (NEGATIVE) mg/dL Urine Glucose (UA) (NEGATIVE) mg/dL Urine Ketones (NEGATIVE) mg/dL Urine Occult Blood (NEGATIVE) Urine Nitrite (NEGATIVE) Urine Bilirubin (NEGATIVE) Urine Urobilinogen (0.2-1.0) EU/dL Ur Leukocyte Esterase (NEGATIVE) Urine RBC (0-5) Urine WBC (0-5) Ur Epithelial Cells Amorphous Sediment Urine Bacteria Urine Mucus Ketones (NEGATIVE) SARS Virus RNA (PCR) (NEGATIVE) Med Orders - Current: Current Medications Acetaminophen (Tylenol) 650 mg PO Q4H PRN PRN Reason: Pain (Mild 1-3)/fever Albuterol (Proventil Neb Soln) 2.5 mg NEB Q4H PRN PRN Reason: Shortness Of Breath/wheezing Hydromorphone HCl (Dilaudid) 0.5 mg IVPUSH Q2H PRN PRN Reason: Pain Insulin Regular in 0.9 % NACL (Myxredlin 100 Unit/100 Ml) 100 mls @ 5.4 mls/hr IV ASDIRECTED [facility]; Protocol Dextrose/Sodium Chloride (Dextrose 5%-Normal Saline) 1,000 mls @ 100 mls/hr IV ASDIRECTED [facility] Last Admin: 07/26/20 08:29 Dose: 100 mls/hr Documented by: Lorazepam (Ativan) 0.5 mg IVPUSH Q4H PRN PRN Reason: Nausea/Vomiting Magnesium Hydroxide (Milk Of Magnesia) 30 ml PO Q12H PRN PRN Reason: Constipation Melatonin (Melatonin) 9 mg PO BEDTIME PRN PRN Reason: Sleep Ondansetron HCl (Zofran) 4 mg IV Q6H PRN PRN Reason: Nausea/Vomiting Last Admin: 07/25/20 16:24 Dose: 4 mg Documented by: Ondansetron HCl (Zofran Odt) 4 mg PO Q6H PRN PRN Reason: Nausea able to take PO Pantoprazole Sodium (Protonix Iv) 40 mg IV Q12H [facility] Last Admin: 07/26/20 08:08 Dose: 40 mg Documented by: Senna/Docusate Sodium (Senna Plus) 1 tab PO BID PRN PRN Reason: Constipation Sodium Chloride (Saline Flush) 10 ml FLUSH ASDIRECTED PRN PRN Reason: Keep Vein Open Discontinued Medications Sodium Chloride (Normal Saline) 1,000 mls @ 500 mls/hr IV ASDIRECTED [facility] Last Admin: 07/25/20 14:13 Dose: 500 mls/hr Documented by: Insulin Regular in 0.9 % NACL (Myxredlin 100 Unit/100 Ml) 100 mls @ 5.4 mls/hr IV ASDIRECTED [facility] Last Infusion: 07/26/20 09:09 Dose: 0.02 units/kg/hr, 1 mls/hr Documented by: Sodium Chloride (Normal Saline) 1,000 mls @ 999 mls/hr IV .BOLUS ONE Stop: 07/25/20 16:41 Last Admin: 07/25/20 16:06 Dose: 999 mls/hr Documented by: Potassium Chloride/Sodium Chloride (Normal Saline With 20 Meq Kcl) 1,000 mls @ 125 mls/hr IV ASDIRECTED [facility] Last Admin: 07/26/20 00:48 Dose: 125 mls/hr Documented by: Insulin Human Regular (Humulin R) 10 unit IVPUSH ONETIME ONE Stop: 07/25/20 14:25 Last Admin: 07/25/20 14:40 Dose: 10 units Documented by: Ondansetron HCl (Zofran) 4 mg IVPUSH ONETIME ONE Stop: 07/25/20 14:17 Last Admin: 07/25/20 14:32 Dose: 4 mg Documented by: Pantoprazole Sodium (Protonix Iv) 40 mg IV Q12H [facility] Last Admin: 07/25/20 16:24 Dose: 40 mg Documented by: - Exam Quality Assessment: No: Supplemental Oxygen General: Alert, Oriented, Cooperative, No Acute Distress Lungs: Normal Respiratory Effort. No: Wheezing Cardiovascular: Regular Rate, Regular Rhythm GI/Abdominal Exam: Soft, No Distention Extremities: No Pedal Edema. No: Increased Warmth Skin: Warm, Dry Psy/Mental Status: Alert, Normal Affect Sepsis Event Note - Evaluation Sepsis Screening Result: No Definite Risk - Focused Exam Vital Signs: Vital Signs Temp Pulse Resp BP Pulse Ox 07/26/20 10:00 90 10 L 129/61 97 07/26/20 09:00 87 15 116/49 L 98 07/26/20 08:00 36.2 C 88 14 122/47 L 97 07/26/20 07:00 88 22 H 138/64 96 07/26/20 06:00 92 11 L 149/65 H 97 07/26/20 05:00 92 17 145/64 H 96 07/26/20 04:00 36.1 C 92 17 135/61 97 07/26/20 03:00 90 14 128/58 L 96 07/26/20 02:00 100 17 134/58 L 94 L 07/26/20 01:00 97 18 123/42 L 97 07/26/20 00:00 36.9 C 97 15 149/66 H 98 07/25/20 23:00 100 18 140/60 98 - Problem List & Annotations (1) Diabetic keto-acidosis SNOMED Code(s): 090067354, 603328111 Code(s): E13.10 - OTH DIABETES MELLITUS WITH KETOACIDOSIS WITHOUT COMA Status: Acute Current Visit: No Qualifiers: Diabetes mellitus type: type 1 Diabetes mellitus complication detail: without coma Qualified Code(s): E10.10 - Type 1 diabetes mellitus with ketoacidosis without coma (2) High anion gap metabolic acidosis SNOMED Code(s): 52717689 Code(s): E87.2 - ACIDOSIS Status: Acute Current Visit: No (3) Acute kidney injury SNOMED Code(s): 82470348, 98693748 Code(s): N17.9 - ACUTE KIDNEY FAILURE, UNSPECIFIED Status: Acute Current Visit: Yes (4) Alcohol dependence SNOMED Code(s): 51440165 Code(s): F10.20 - ALCOHOL DEPENDENCE, UNCOMPLICATED Status: Chronic Current Visit: Yes Qualifiers: Substance use status: uncomplicated Qualified Code(s): F10.20 - Alcohol dependence, uncomplicated - Problem List Review Problem List Initiated/Reviewed/Updated: Yes - My Orders Last 24 Hours: My Active Orders 07/25/20 15:10 Communication Order [RC] ASDIRECTED Diabetes Education [RC] Click to Edit Notify Provider [RC] PRN 07/25/20 15:14 Resuscitation Status Routine 07/25/20 15:15 Insulin Regular in 0.9 % NACL [Myxredlin 100 UNIT/100 ML] 100 ml IV ASDIRECTED 07/25/20 15:41 Acetaminophen [TylenoL] 650 mg PO Q4H PRN Albuterol [Proventil Neb Soln] 2.5 mg NEB Q4H PRN Docusate Sodium/Sennosides [Senna Plus] 1 tab PO BID PRN HYDROmorphone [Dilaudid] 0.5 mg IVPUSH Q2H PRN LORazepam [Ativan] 0.5 mg IVPUSH Q4H PRN Magnesium Hydroxide [Milk of Magnesia] 30 ml PO Q12H PRN Melatonin 9 mg PO BEDTIME PRN Ondansetron [Zofran ODT] 4 mg PO Q6H PRN Ondansetron [Zofran] 4 mg IV Q6H PRN 07/25/20 15:41 Patient Status [ADT] Routine Antiembolic Devices [RC] .Routine Cardiac Monitoring [RC] CONTINUOUS Height and Weight [RC] DAILY Intake and Output [RC] QSHIFT Notify Provider Vital Signs [RC] ASDIRECTED Oxygen Therapy [RC] PRN Pulse Oximetry [RC] CONTINUOUS RT Aerosol Therapy [RC] ASDIRECTED Up With Assistance [RC] ASDIRECTED VTE/DVT Education [RC] Per Unit Routine Vital Signs [RC] Q2H Sequential Compression Device [OM.PC] Routine VTE Pharmacological Contraindications [AST] Routine 07/25/20 16:00 Blood Glucose Check, Bedside [RC] Q1H 07/25/20 Dinner Nothing per Oral Now Diet [DIET] 07/26/20 02:11 LYME, TOTAL AB TEST/REFLEX Routine 07/26/20 06:15 Communication Order [RC] PRN 07/26/20 08:00 Pantoprazole [ProTONIX IV] 40 mg IV Q12H 07/26/20 08:15 Dextrose 5%-0.9% NaCl [Dextrose 5%-Normal Saline] 1,000 ml IV ASDIRECTED 07/26/20 10:26 Consult to Physician [CONS] Routine 07/26/20 10:27 Notify Provider Consults [RC] ASDIRECTED 07/26/20 11:00 BASIC METABOLIC PANEL,BMP [CHEM] Routine 07/27/20 05:00 BASIC METABOLIC PANEL,BMP [CHEM] Timed CBC W/O DIFF,HEMOGRAM [HEME] Timed (1) - Plan Plan:: ASSESSMENT AND PLAN - Diabetic ketoacidosis-steadily improving both clinically and with regard to symptoms. Still has mild acidosis and elevated anion gap. -Continue D5 normal saline with potassium -Low-dose insulin drip -Every 4 hour BMPs until his anion gap is normal -Q1H accuchecks -Transition to subcutaneous insulin anticipated later in the day -Lyme serology to try to explain his diffuse, migratory arthralgias Acute kidney injury-creatinine has steadily improved with hydration. -Continue IV fluids -Serial laboratory studies Possible hematemesis-2 weeks of nausea, some vomiting and diarrhea. Possible small quantities of blood in the emesis. CT normal. No hematemesis during the hospital stay. -Twice daily proton pump inhibitor -EGD in the morning Alcohol dependence-he drinks about 6 cans of beer per day. No history of alcohol withdrawal. Maintenance issues - - DVT prophylaxis -mechanical - GI prophylaxis -PPI - Nutrition -nothing by mouth Disposition -I would anticipate discharge home after the hospital stay Primary care physician -Dr Yaniv Reagan M.D.
[2020-07-26] MEDS ORDERED: Insulin Lispro 100 Unit/ML 3 ML KwikPen SUBCUT SCH (15:45)
[2020-07-26] MEDS ORDERED: Insulin Glargine,Human Rec. Analog 100 Units/ML 3 ML Pen SUBCUT ONE (17:00)
[2020-07-26] MEDS: Insulin Lispro 100 Unit/ML 3 ML KwikPen SUBCUT SCH ×2 (17:02→20:58)
[2020-07-27] MEDS: Insulin Lispro 100 Unit/ML 3 ML KwikPen SUBCUT SCH ×2 (07:14→11:31)
[2020-07-27] MEDS ORDERED: Propofol 200 MG/20 ML SDV ONE (07:48)
[2020-07-27] MEDS ORDERED: fentaNYL 100 MCG/2 ML SDV ONE (07:48)
[2020-07-27] MEDS: Pantoprazole 40 MG Vial IV SCH (07:56)
--- NOTE | 2020-07-27 09:32 | CR ---
CHEST: Portable 07/25/2020 at 2:41 PM CLINICAL HISTORY:Elevated blood glucose COMPARISON:08/17/2019 FINDINGS: Heart size and pulmonary vascularity are normal. There are atherosclerotic changes in the aorta.. Lungs are moderately hyperaerated. 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
[2020-07-27] MEDS: Potassium Chloride 20 MEQ, Lidocaine 1% 2 ML in Sodium Chloride 0.9% 100 ML IV SCH ×2 (10:30→12:33)
[2020-07-27 12:51] VITALS: BP 175/82; PULSE 94
[2020-07-27] MEDS ORDERED: Potassium Chloride 20 MEQ Tab.ER PO ONE (12:57)
--- NOTE | 2020-07-27 13:03 | OR ---
DATE OF PROCEDURE: 07/27/2020 SURGEON: Elder Bell MD PROCEDURE: Esophagogastroduodenoscopy. FINDINGS: Plaque-like lesions in distal esophagus (biopsied multiple times using cold biopsy forceps). COMPLICATIONS: None. DEICER FINISHER: None. RISKS: Risks, benefits, alternatives, and limitations including, but not limited to infection, bleeding, and perforation were explained to the patient and wished to proceed. PROCEDURE IN DETAIL: The patient was placed in a left lateral decubitus position. EGD scope was then advanced atraumatically to the second part of the duodenum. No evidence of duodenitis or ulceration was noted. Within the stomach, there was no gastritis. No old or new blood. No evidence of ulceration. The GE junction showed multiple plaque-like lesions extending up through the mid esophagus. These were biopsied multiple times and biopsies were also performed in all 4 quadrants. There was no active bleeding or esophageal varices noted in the esophagus. The patient tolerated the procedure well. Elder Bell MD /[id number]
--- NOTE | 2020-07-27 13:07 | PCM.DCSUM1 ---
Discharge Summary - Hospital Course Brief History: Mr. Patton is a 75-year-old gentleman who was admitted through the emergency department with weakness and nausea, secondary to diabetic ketoacidosis. - Discharge Data Discharge Date: 07/27/20 Discharge Disposition: Home, Self-Care 01 Condition: Stable - Referral to Home Health Primary Care Physician: Juan Diego Alegria MD - Discharge Diagnosis/Problem(s) (1) Ketoacidosis SNOMED Code(s): 44636906 ICD Code: E87.2 - ACIDOSIS Status: Acute Current Visit: Yes (2) Hyperglycemia due to diabetes mellitus SNOMED Code(s): 426104587, 932089199 ICD Code: E11.65 - TYPE 2 DIABETES MELLITUS WITH HYPERGLYCEMIA Status: Acute Current Visit: Yes (3) Acute kidney injury SNOMED Code(s): 15898373, 01513440 ICD Code: N17.9 - ACUTE KIDNEY FAILURE, UNSPECIFIED Status: Acute Current Visit: Yes (4) Nausea & vomiting SNOMED Code(s): 72763676 ICD Code: R11.2 - NAUSEA WITH VOMITING, UNSPECIFIED Status: Acute Current Visit: Yes (5) Diabetes SNOMED Code(s): 13643274 ICD Code: E11.9 - TYPE 2 DIABETES MELLITUS WITHOUT COMPLICATIONS Status: Chronic Current Visit: No - Patient Summary/Data Consults: Consultations 07/26/20 10:26 Consult to Physician [CONS] Routine Consulting Provider: Elder Bell Call Completed to Consulting Physician: Yes Reason for Consult: nausea, possible hematemesis Person Notified: RW Date Notified: 07/26/20 Special Instructions: EGD in the am Hospital Course: Mr. Patton presented to the emergency room with 2 days of nausea with vomiting as well as diffuse myalgias and arthralgias. He reports not feeling well for the past couple of weeks. He has had some nausea and a poor appetite as well as acute on chronic diarrhea. He has had 5-6 watery bowel movements for the past couple of days and his diarrhea had been more impressive than usual though less than the last couple of days for the 2 weeks prior. No complaints of abdominal pain. He has had multiple episodes of emesis over the past 2 days and these seem to be getting more intense. He is not aware of any fevers or chills. His appetite is never good but has been worse the last several days. He feels short of breath and this started yesterday. No chest pain or cough. He does not regularly check his blood sugar but yesterday it was about 210. He reports consuming about 6 beers per day plus or minus a couple. His last drink was yesterday morning and he has felt too bad to drink since that time. Work-up in the emergency room revealed evidence for diabetic ketoacidosis with a pH of 7.0, significant hyperglycemia and a bicarbonate level of less than 10. His white count is elevated but there is no impressive evidence for infection. COVID testing was negative. CRP is normal. He has received insulin and some fluids. He was admitted to the intensive care unit for further management. On admission he was placed on continuous IV infusion of insulin. Electrolytes were managed per diabetic ketoacidosis protocol. Nausea vomiting and diarrhea resolved and he was feeling well by the time of discharge. There was some question of possible episode of hematemesis at home, he was seen and evaluated by Dr. Bell. EGD was performed prior to discharge and showed no obvious source of bleeding. There was area of inflammation in the lower esophagus that appeared to be consistent with yeast esophagitis. He will be started on nystatin liquid 4 times daily for 10 days. He is encouraged to follow-up with his primary care provider within 1 week and consider further follow-up with the hospice educator. Activity will be as tolerated and he will remain on a diabetic diet. - Patient Instructions Diet: Diabetic Diet Activity: As Tolerated Other/Special Instructions: Please schedule follow-up appointment with primary care provider within 1 week. - Discharge Plan *PRESCRIPTION DRUG MONITORING PROGRAM REVIEWED*: Not Applicable *COPY OF PRESCRIPTION DRUG MONITORING REPORT IN PATIENT MODESTA: Not Applicable Prescriptions/Med Rec: Nystatin 500,000 unit PO QID #200 ml Home Medications: Home Meds Insulin Glarg,Human.Rec.Analog [Lantus Solostar] 20 units SQ BEDTIME 07/22/15 [History] Insulin Lispro [HumaLOG] 4 - 6 unit SUBCNJ TID 09/07/17 [History] Omeprazole 20 mg PO DAILY 12/15/19 [History] Nystatin 500,000 unit PO QID #200 ml 07/27/20 [Rx] Referrals: Juan Diego Alegria MD [Primary Care Provider] - - Discharge Summary/Plan Comment DC Time >30 min.: No - Patient Data Vitals - Most Recent: Last Vital Signs Temp 96.1 F L 07/27/20 11:57 Pulse 94 07/27/20 12:27 Resp 16 07/27/20 12:27 BP 175/82 H 07/27/20 12:27 Pulse Ox 98 07/27/20 12:27 Weight - Most Recent: 126 lb 5.198 oz I&O - Last 24 hours: Intake & Output 07/26/20 07/27/20 07/27/20 22:59 06:59 14:59 Intake Total 807 Output Total 700 Balance 807 -700 Lab Results - Last 24 hrs: Laboratory Results - last 24 hr 07/26/20 07/27/20 07/27/20 Range/Units 15:20 06:01 06:01 WBC 8.1 (4.5-11.0) K/uL RBC 4.18 L (4.30-5.90) M/uL Hgb 12.4 (12.0-15.0) g/dL Hct 38.4 L (40.0-54.0) % MCV 92 (80-98) fL MCH 30 (27-31) pg MCHC 32 (32-36) % Plt Count 167 (150-400) K/uL Sodium 144 146 (140-148) mmol/L Potassium 3.2 L 3.0 L (3.6-5.2) mmol/L Chloride 110 H 109 H (100-108) mmol/L Carbon Dioxide 23 24 (21-32) mmol/L Anion Gap 14.2 H 16.0 H (5.0-14.0) mmol/L BUN 18 14 (7-18) mg/dL Creatinine 1.3 1.1 (0.8-1.3) mg/dL Est Cr Clr Drug Dosing 41.02 48.47 mL/min Estimated GFR (MDRD) 54 L > 60 (>60) Glucose 157 H 105 (74-106) mg/dL Calcium 8.0 L 8.3 L (8.5-10.1) mg/dL Med Orders - Current: Current Medications Acetaminophen (Tylenol) 650 mg PO Q4H PRN PRN Reason: Pain (Mild 1-3)/fever Albuterol (Proventil Neb Soln) 2.5 mg NEB Q4H PRN PRN Reason: Shortness Of Breath/wheezing Hydromorphone HCl (Dilaudid) 0.5 mg IVPUSH Q2H PRN PRN Reason: Pain Potassium Chloride 20 meq/Lidocaine HCl 2 ml/ Sodium Chloride 112 mls @ 56 mls/hr IV Q2H [facility] Stop: 07/27/20 13:59 Last Admin: 07/27/20 12:33 Dose: 56 mls/hr Documented by: Insulin Human Lispro (Humalog) 0 unit SUBCUT QIDACANDBED [facility]; Protocol Last Admin: 07/27/20 11:31 Dose: 2 units Documented by: Lorazepam (Ativan) 0.5 mg IVPUSH Q4H PRN PRN Reason: Nausea/Vomiting Magnesium Hydroxide (Milk Of Magnesia) 30 ml PO Q12H PRN PRN Reason: Constipation Melatonin (Melatonin) 9 mg PO BEDTIME PRN PRN Reason: Sleep Ondansetron HCl (Zofran) 4 mg IV Q6H PRN PRN Reason: Nausea/Vomiting Last Admin: 07/25/20 16:24 Dose: 4 mg Documented by: Ondansetron HCl (Zofran Odt) 4 mg PO Q6H PRN PRN Reason: Nausea able to take PO Pantoprazole Sodium (Protonix Iv) 40 mg IV Q12H [facility] Last Admin: 07/27/20 07:56 Dose: 40 mg Documented by: Senna/Docusate Sodium (Senna Plus) 1 tab PO BID PRN PRN Reason: Constipation Sodium Chloride (Saline Flush) 10 ml FLUSH ASDIRECTED PRN PRN Reason: Keep Vein Open Discontinued Medications Fentanyl (Sublimaze) Confirm Administered Dose 100 mcg .ROUTE .STK-MED ONE Stop: 07/27/20 07:49 Sodium Chloride (Normal Saline) 1,000 mls @ 500 mls/hr IV ASDIRECTED [facility] Last Admin: 07/25/20 14:13 Dose: 500 mls/hr Documented by: Insulin Regular in 0.9 % NACL (Myxredlin 100 Unit/100 Ml) 100 mls @ 5.4 mls/hr IV ASDIRECTED [facility] Last Infusion: 07/26/20 16:06 Dose: 0 units/kg/hr, 0 mls/hr Documented by: Insulin Regular in 0.9 % NACL (Myxredlin 100 Unit/100 Ml) 100 mls @ 5.4 mls/hr IV ASDIRECTED [facility]; Protocol Sodium Chloride (Normal Saline) 1,000 mls @ 999 mls/hr IV .BOLUS ONE Stop: 07/25/20 16:41 Last Admin: 07/25/20 16:06 Dose: 999 mls/hr Documented by: Potassium Chloride/Sodium Chloride (Normal Saline With 20 Meq Kcl) 1,000 mls @ 125 mls/hr IV ASDIRECTED [facility] Last Admin: 07/26/20 00:48 Dose: 125 mls/hr Documented by: Dextrose/Sodium Chloride (Dextrose 5%-Normal Saline) 1,000 mls @ 100 mls/hr IV ASDIRECTED [facility] Last Admin: 07/26/20 08:29 Dose: 100 mls/hr Documented by: Insulin Glargine (Lantus Solostar) 10 units SUBCUT ONETIME ONE Stop: 07/26/20 17:01 Last Admin: 07/26/20 16:07 Dose: 10 units Documented by: Insulin Human Lispro (Humalog) 0 unit SUBCUT ASDIRECTED [facility]; Protocol Insulin Human Regular (Humulin R) 10 unit IVPUSH ONETIME ONE Stop: 07/25/20 14:25 Last Admin: 07/25/20 14:40 Dose: 10 units Documented by: Ondansetron HCl (Zofran) 4 mg IVPUSH ONETIME ONE Stop: 07/25/20 14:17 Last Admin: 07/25/20 14:32 Dose: 4 mg Documented by: Pantoprazole Sodium (Protonix Iv) 40 mg IV Q12H [facility] Last Admin: 07/25/20 16:24 Dose: 40 mg Documented by: Potassium Chloride (Klor-Con M20) 40 meq PO ONETIME ONE Stop: 07/27/20 12:58 Last Admin: 07/27/20 13:01 Dose: 40 meq Documented by: Propofol (Diprivan 20 Ml) Confirm Administered Dose 200 mg .ROUTE .STK-MED ONE Stop: 07/27/20 07:49 - Exam Quality Assessment: Reports: DVT Prophylaxis General: Reports: Alert, Oriented, Cooperative, No Acute Distress Lungs: Reports: Clear to Auscultation, Normal Respiratory Effort Cardiovascular: Reports: Regular Rate, Regular Rhythm, No Murmurs GI/Abdominal Exam: Soft, Non-Tender, No Organomegaly, No Distention *Q Meaningful Use (DIS) - VTE *Q VTE Pharmacological Contraindications *Q: Risk of Bleeding (possible hematemesis)
[2020-07-29 11:11] LABS: LYME IGG/IGM AB <0.91 ISR (0.00-0.90)
== END 2020-07-27 13:35 | disposition home or self-care (01) | DRG 638 ==
LOC: JP.ED 13:42 → JP.ICU 15:13
PROVIDERS: ADMIT Internal Medicine; ATTEND Internal Medicine
PROC: 0DB38ZX Excision of Lower Esophagus, Via Natural or Artificial Opening Endoscopic, Diagnostic (ICD-10-PCS; principal; 2020-07-27)
DX: E11.10 Type 2 diabetes mellitus with ketoacidosis without coma (principal); N17.9 Acute kidney failure, unspecified; B37.81 Candidal esophagitis; Z20.828 Contact with and (suspected) exposure to other viral communicable diseases; H54.7 Unspecified visual loss; J44.9 Chronic obstructive pulmonary disease, unspecified; K21.9 Gastro-esophageal reflux disease without esophagitis; M19.90 Unspecified osteoarthritis, unspecified site; K52.9 Noninfective gastroenteritis and colitis, unspecified; F10.20 Alcohol dependence, uncomplicated; F41.9 Anxiety disorder, unspecified; F32.9 Major depressive disorder, single episode, unspecified; Z79.4 Long term (current) use of insulin; Z79.899 Other long term (current) drug therapy; Z98.49 Cataract extraction status, unspecified eye; Z88.1 Allergy status to other antibiotic agents; Z88.5 Allergy status to narcotic agent; Z87.891 Personal history of nicotine dependence
CPT/HCPCS: 36415; 36600; 71045; 71045-26; 74176; 80048; 80053; 81001; 82009; 82150; 82803; 82962; 83605; 83690; 83735; 85025; 85027; 86140; 86618; 93005; 93010; 96361; 96374; 99285-25; A9270-GY; C9113; J1815; J1815-GY; J2001; J2405; J2704; J3010; J3480; J7030; J7050; U0002

== ENCOUNTER 2021-05-07 16:30 | Inpatient (IN) | payer OTHER, MEDICARE ==
[2021-05-07] MEDS: Sodium Chloride 0.9% 1,000 ML IV SCH ×2 (16:45→18:35)
[2021-05-07] MEDS ORDERED: Insulin Regular, Human 100 Units/ML 3 ML Vial IVPUSH ONE (16:51)
--- NOTE | 2021-05-07 16:53 | EDM.PDOC ---
ED HPI GENERAL MEDICAL PROBLEM - General Stated Complaint: HIGH SUGARS Time Seen by Provider: 05/07/21 16:30 Source of Information: Reports: Patient, Family History Limitations: Reports: Altered Mental Status, Physical Impairment - History of Present Illness INITIAL COMMENTS - FREE TEXT/NARRATIVE: 76-year-old male with insulin-dependent diabetes for the last 35 years, has presented with diabetic ketoacidosis several times over the past few years. He does not like to come to the hospital until he is very ill. He is taking his insulin, but he does not take any other medications and continues to drink several beers daily. Over the last 2 to 3 days has been vomiting consistently, suffering from abdominal cramps for the last several weeks. Some loose stools. Today they found him collapsed on the floor and could not get him up. His called his son and they managed to get him into the truck and brought him into the hospital pulling into the ambulance garage. He was in the backseat of the vehicle, barely conscious. Onset: Unknown/Unsure Duration: Day(s): (Patient has been sick for several days) - Related Data Allergies Allergy/AdvReac Type Severity Reaction Status Date / Time cephalexin monohydrate Allergy Unknown Hives Verified 05/07/21 16:38 [From Keflex] codeine AdvReac Unknown Vomiting Verified 05/07/21 16:38 Home Meds: Home Meds Insulin Glarg,Human.Rec.Analog [Lantus Solostar] 20 units SQ BEDTIME 07/22/15 [History] Insulin Lispro [HumaLOG] 6 unit SUBCNJ TID 09/07/17 [History] Omeprazole 20 mg PO DAILY 12/15/19 [History] Nystatin 500,000 unit PO QID #200 ml 07/27/20 [Rx] Past Medical History HEENT History: Reports: Impaired Vision Cardiovascular History: Reports: Heart Murmur Respiratory History: Reports: COPD Gastrointestinal History: Reports: GERD, Other (See Below) Other Gastrointestinal History: acid reflux Musculoskeletal History: Reports: Osteoarthritis, Other (See Below) Other Musculoskeletal History: right sciatic pain Psychiatric History: Reports: Anxiety, Depression Endocrine/Metabolic History: Reports: Diabetes, Type II Other Endocrine/Metabolic History: insulin dependent - Infectious Disease History Infectious Disease History: Reports: Chicken Pox Other Infectious Disease History: polio - Past Surgical History HEENT Surgical History: Reports: Cataract Surgery Social & Family History - Family History Family Medical History: No Pertinent Family History - Tobacco Use Tobacco Use Status *Q: Never Tobacco User - Caffeine Use Caffeine Use: Reports: Coffee Caffeine Use Comment: occasional coffee - Alcohol Use Days Per Week of Alcohol Use: 7 Number of Drinks Per Day: 8 Total Drinks Per Week: 56 - Recreational Drug Use Recreational Drug Use: No ED ROS GENERAL - Review of Systems Review Of Systems: See Below (Patient can barely answer questions but can nod or shake his head. Claims he has had some loose stools but denies any new pain) HEENT: Denies: Vision Change Respiratory: Reports: Shortness of Breath. Denies: Cough Cardiovascular: Denies: Chest Pain GI/Abdominal: Reports: Diarrhea, Nausea, Vomiting. Denies: Hematemesis, Hematochezia : Reports: No Symptoms (Claims no symptoms) Musculoskeletal: Reports: Other (Does struggle with chronic pain, especially of his back) Skin: Reports: Other (Bruising is developed on his knees from falling and prone weakness) Neurological: Reports: Confusion, Weakness Psychiatric: Reports: No Symptoms ED EXAM, GENERAL - Physical Exam Exam: See Below Free Text/Narrative:: Patient is able to open his eyes on request, pupils are small but equal Exam Limited By: No Limitations General Appearance: Lethargic Eye Exam: Bilateral Eye: PERRL Head: Atraumatic Respiratory/Chest: No Respiratory Distress, Lungs Clear, Decreased Breath Sounds (Diffuse decreased breath sounds posteriorly) Cardiovascular: Regular Rate, Rhythm. No: Tachycardia GI/Abdominal: Other (Abdomen is very lean, no involuntary guarding is present. Does react with tenderness diffusely) Extremities: Other (Very thin cachectic extremities, no peripheral edema) Neurological: Inattentive, Confused, Slow to Respond Skin Exam: Warm, Dry Course - Vital Signs Last Recorded V/S: Last Vital Signs Temp 96.4 F L 05/07/21 19:30 Pulse 83 05/07/21 19:30 Resp 28 H 05/07/21 19:40 BP 85/49 L 05/07/21 19:40 Pulse Ox 96 05/07/21 19:40 - Orders/Labs/Meds Labs: Laboratory Tests 05/07/21 05/07/21 05/07/21 Range/Units 16:31 16:31 16:32 WBC 18.2 H (4.5-11.0) K/uL RBC 4.61 (4.30-5.90) M/uL Hgb 13.9 (12.0-15.0) g/dL Hct 49.9 (40.0-54.0) % MCV 108 H (80-98) fL MCH 30 (27-31) pg MCHC 28 L (32-36) % Plt Count 161 (150-400) K/uL Neut % (Auto) 84.8 H (36-66) % Lymph % (Auto) 5.0 L (24-44) % [place] % (Auto) 9.9 H (2-6) % Eos % (Auto) 0.1 L (2-4) % Baso % (Auto) 0.2 (0-1) % Puncture Site Rt.radial ABG pH 7.040 L* (7.350-7.450) ABG pCO2 13.1 L* (35.0-42.0) mmHg ABG pO2 168.0 H (75.0-100.0) mmHg ABG HCO3 3.4 L (22.0-26.0) mmol/L ABG Total CO2 3.3 L (23.0-27.0) mmol/L ABG O2 Saturation 98.4 H (95.0-98.0) % ABG O2 Content 19.2 (15.0-23.0) %vol ABG Base Excess -27.3 mm/L ABG Hemoglobin 13.9 (13.5-18.0) g/dL ABG Oxyhemoglobin 96.4 % ABG Carboxyhemoglobin 1.0 (0.0-1.6) % ABG Methemoglobin 1.0 % [place] Test Passed O2 Delivery Device Room air Sodium 133 L (140-148) mmol/L Potassium 5.1 (3.6-5.2) mmol/L Chloride 89 L (100-108) mmol/L Carbon Dioxide 6 L D (21-32) mmol/L Anion Gap 43.1 H (5.0-14.0) mmol/L BUN 100 H* D (7-18) mg/dL Creatinine 7.0 H* D (0.8-1.3) mg/dL Est Cr Clr Drug Dosing 6.77 mL/min Estimated GFR (MDRD) 8 L (>60) Glucose 1390 H* (74-106) mg/dL POC Glucose (74-106) mg/dL Calcium 7.4 L (8.5-10.1) mg/dL Total Bilirubin 0.7 (0.2-1.0) mg/dL AST 26 D (15-37) U/L ALT 25 (12-78) U/L Alkaline Phosphatase 109 (46-116) U/L Total Protein 6.2 L (6.4-8.2) g/dL Albumin 3.3 L (3.4-5.0) g/dL Globulin 2.9 (2.3-3.5) g/dL Albumin/Globulin Ratio 1.1 L (1.2-2.2) Ketones (NEGATIVE) 05/07/21 05/07/21 Range/Units 16:32 16:42 WBC (4.5-11.0) K/uL RBC (4.30-5.90) M/uL Hgb (12.0-15.0) g/dL Hct (40.0-54.0) % MCV (80-98) fL MCH (27-31) pg MCHC (32-36) % Plt Count (150-400) K/uL Neut % (Auto) (36-66) % Lymph % (Auto) (24-44) % [place] % (Auto) (2-6) % Eos % (Auto) (2-4) % Baso % (Auto) (0-1) % Puncture Site ABG pH (7.350-7.450) ABG pCO2 (35.0-42.0) mmHg ABG pO2 (75.0-100.0) mmHg ABG HCO3 (22.0-26.0) mmol/L ABG Total CO2 (23.0-27.0) mmol/L ABG O2 Saturation (95.0-98.0) % ABG O2 Content (15.0-23.0) %vol ABG Base Excess mm/L ABG Hemoglobin (13.5-18.0) g/dL ABG Oxyhemoglobin % ABG Carboxyhemoglobin (0.0-1.6) % ABG Methemoglobin % [place] Test O2 Delivery Device Sodium (140-148) mmol/L Potassium (3.6-5.2) mmol/L Chloride (100-108) mmol/L Carbon Dioxide (21-32) mmol/L Anion Gap (5.0-14.0) mmol/L BUN (7-18) mg/dL Creatinine (0.8-1.3) mg/dL Est Cr Clr Drug Dosing mL/min Estimated GFR (MDRD) (>60) Glucose (74-106) mg/dL POC Glucose > 600 H* (74-106) mg/dL Calcium (8.5-10.1) mg/dL Total Bilirubin (0.2-1.0) mg/dL AST (15-37) U/L ALT (12-78) U/L Alkaline Phosphatase (46-116) U/L Total Protein (6.4-8.2) g/dL Albumin (3.4-5.0) g/dL Globulin (2.3-3.5) g/dL Albumin/Globulin Ratio (1.2-2.2) Ketones Large H (NEGATIVE) Meds: Medications Discontinued Medications Generic Name Dose Route Start Last Admin Trade Name Freq PRN Reason Stop Dose Admin Dextrose/Water 50 ml 05/07/21 18:12 50% Dextrose In Water 50 Ml Syringe IVPUSH ONETIME PRN Blood Glucose Folic Acid 1 mg 05/08/21 09:00 Folic Acid 1 Mg Tab PO DAILY JUDIE Sodium Chloride 1,000 mls @ 1,000 mls/hr 05/07/21 16:45 05/07/21 18:35 Normal Saline IV 1,000 mls/hr ASDIRECTED JUDIE Administration Insulin Regular in 0.9 % NACL 100 mls @ 5.171 mls/hr 05/07/21 18:00 05/07/21 18:40 Myxredlin In Ns 100 Unit/100 Ml IV 0.1 units/kg/hr ASDIRECTED JUDIE 5.171 mls/hr Administration Protocol 0.1 UNITS/KG/HR Insulin Regular in 0.9 % NACL 100 mls @ 5.171 mls/hr 05/07/21 18:00 Myxredlin In Ns 100 Unit/100 Ml IV ASDIRECTED JUDIE Protocol 0.1 UNITS/KG/HR Insulin Regular in 0.9 % NACL 100 unit in 100 mls @ 620.52 mls/hr 05/07/21 17:45 Myxredlin In Ns 100 Unit/100 Ml IV ASDIRECTED JUDIE 12 UNITS/KG/HR Potassium Chloride 20 meq/ 100 mls @ 50 mls/hr 05/07/21 18:12 Premix IV 05/07/21 20:11 ONETIME ONE Potassium Chloride 20 meq/ 100 mls @ 50 mls/hr 05/07/21 18:12 Premix IV Q2H PRN Hypokalemia Potassium Chloride 20 meq/ 100 mls @ 50 mls/hr 05/07/21 18:12 Premix IV Q2H PRN Hypokalemia Magnesium Sulfate 50 mls @ 25 mls/hr 05/07/21 18:22 Magnesium Sulfate In Water 2 Gm/50 Ml IV ONETIME PRN low magnesium Sodium Chloride 1,000 mls @ 150 mls/hr 05/07/21 18:30 Normal Saline IV ASDIRECTED JUDIE Sodium Chloride 1,000 mls @ 0 mls/hr 05/07/21 18:28 05/07/21 18:47 Normal Saline IV 05/07/21 18:29 999 mls/hr BOLUS ONE Administration KVO Potassium Chloride 20 meq/ 100 mls @ 50 mls/hr 05/07/21 19:00 Premix IV 05/07/21 20:59 ONETIME ONE Sodium Chloride 1,000 mls @ 999 mls/hr 05/07/21 19:23 05/07/21 19:25 Normal Saline IV 05/07/21 20:23 999 mls/hr .BOLUS ONE Administration Sodium Chloride 1,000 mls @ 999 mls/hr 05/07/21 20:15 05/07/21 19:30 Sodium Chloride 0.45% IV 999 mls/hr BOLUS JUDIE Administration Sodium Chloride 1,000 mls @ 999 mls/hr 05/07/21 19:30 Sodium Chloride 0.45% IV ASDIRECTED JUDIE Insulin Human Regular 12 unit 05/07/21 16:51 05/07/21 16:58 Insulin Regular, Human 100 Units/Ml 3 Ml Vial IVPUSH 05/07/21 16:52 12 units ONETIME ONE Administration Lorazepam 0 mg 05/07/21 18:15 Lorazepam 1 Mg Tab PO ASDIRECTED JUDIE Protocol Lorazepam 0 mg 05/07/21 18:15 Lorazepam 2 Mg/Ml Sdv IV ASDIRECTED [facility] Protocol Thiamine HCl 100 mg 05/08/21 09:00 Thiamine 100 Mg Tab PO DAILY JUDIE - Re-Assessments/Exams Free Text/Narrative Re-Assessment/Exam: 05/07/21 17:35 [id number] glucose was obtained at bedside and IV was started urgently. He was bolused with 1 unit of normal saline, glucose was "greater than 600". 12 units of IV regular insulin was then administered. ABGs, CBC CMP and serum ketones were obtained. Hospitalist service was consulted for likely admission for diabetic ketoacidosis. ABGs revealed a pH of 7.04, CO2 of 13. Glucose 1370, sodium was 133 but corrected would be over 154-160. Potassium 5.1. Patient started to become a little more responsive, creatinine 7.0, GFR 8 05/07/21 18:15 Insulin drip was started patient will be admitted to the hospital service. Departure - Departure Time of Disposition: 17:36 Disposition: Admitted As Inpatient 68 Clinical Impression: Hyperglycemia, Dehydration, severe DKA, type 1 Qualifiers: Diabetes mellitus complication detail: without coma Qualified Code(s): E10.10 - Type 1 diabetes mellitus with ketoacidosis without coma - Discharge Information Sepsis Event Note (ED) - Evaluation Sepsis Screening Result: No Definite Risk
[2021-05-07] MEDS ORDERED: Insulin Regular in 0.9 % NACL 100 ML IV SCH (18:00)
[2021-05-07] MEDS ORDERED: 50% Dextrose in Water 50 ML Syringe IVPUSH PRN (18:12)
[2021-05-07] MEDS ORDERED: Potassium Chloride 20 MEQ in Premix Bag 1 BAG IV ONE ×2 (18:12→19:00)
[2021-05-07] MEDS ORDERED: Potassium Chloride 20 MEQ in Premix Bag 1 BAG IV PRN ×4 (18:12)
[2021-05-07] MEDS ORDERED: LORazepam 2 MG/ML SDV IV SCH (18:15)
[2021-05-07] MEDS ORDERED: LORazepam 1 MG Tab PO SCH (18:15)
[2021-05-07] MEDS ORDERED: Magnesium Sulfate/Water 50 ML IV PRN (18:22)
[2021-05-07 18:26] LABS: HEMOGLOBIN A1C 11.3 % (4.5-6.2)
[2021-05-07] MEDS ORDERED: Sodium Chloride 0.9% 1,000 ML IV ONE ×2 (18:28→19:23)
[2021-05-07] MEDS ORDERED: Sodium Chloride 0.9% 1,000 ML IV SCH (18:30)
[2021-05-07] MEDS ORDERED: Sodium Chloride 0.45% 1,000 ML IV SCH ×2 (19:30→20:15)
[2021-05-07 20:17] VITALS: PULSE 83
[2021-05-07 20:18] VITALS: BP 85/49
--- NOTE | 2021-05-07 20:34 | PCM.HP.2 ---
H&P History of Present Illness - General Date of Service: 05/07/21 Admit Problem/Dx: Admission Diagnosis/Problem Admission Diagnosis/Problem Diabetic ketoacidosis Source of Information: Family History Limitations: Reports: Altered Mental Status - History of Present Illness Initial Comments - Free Text/Narative: Mr. Patton was obtunded and would only withdrawal to tactile stimulus therefore history was taken from his who was at bedside. Mr. Patton is a 76-year-old white male who presented after being found on the ground unresponsive by his at 11 AM. She states that he was last seen at 9 PM last night going to the bathroom and was not seen again until she found him at 11 AM. At that time she was concerned that his blood sugar may be too high and she checked it and the meter just said high. She gave him 4 units and waited about an hour. She checked his blood sugar again and it was still high so she gave him another 2 units. At that point he was not improving so she decided to bring him in to the ER. For the past month he has been having stomach pains. He was placed on omeprazole for acid reflux by his primary and he has been noncompliant with that medication even though it makes his symptoms better. About 3 to 4 days ago he began having nausea, vomiting, and anorexia. That continued until today when he was found unresponsive. She did note that he is extensive bruising on both of his knees and his elbow. He is a beer drinker who drinks approximately 8 to 10 cans or more of beer daily. He does not take his insulin when he is not eating even though he is drinking beer. He only eats a small amount of food each day. She states that he has had diabetes for over 30 years. He has had 3 episodes of DKA in the past. He takes Lantus 20 units at bedtime and Humalog with meals. In the ED he was initially noted to have a blood glucose of 1390 therefore he was given 12 units of bolus normal insulin and started on fluids. An ABG was drawn which showed a pH of 7, PCO2 of 13.1, PO2 of 168, and bicarb of 3.4, with a saturation of 98%. I was then contacted by the ED physician to admit the patient. Mr. Patton was kussmaul breathing and obtunded. A basic metabolic panel came back showing sodium 133, chloride 89, potassium 5.1, BUN of 100, creatinine of 7.0. A repeat basic had been drawn the creatinine had decreased to 6.6, and his blood glucose was 1273. Calcium 7.2, Phos 8.2, magnesium 3.2. Liver labs were within normal limits. At this time with the critical creatinine value, the presence of kussmaul breathing in the setting of severe acidosis, the likelihood of rhabdomyolysis due to prolonged downtime, and the need for possible dialysis the decision was made to transfer this patient to [facility] in [facility]. I contacted Dr. Keith in the ICU at [facility] who accepted the patient. I spoke with his , son, and [id number] who all agreed that he should be transported to [place] and gave consent. I contacted the transport for flight transportation as the wait time for ground transportation was approximately 4 hours and that was too long. In preparation for his flight he was given 2 a dditional boluses of normal saline (total of 3 normal saline boluses) and a bolus of half-normal saline was prepared for the flight. An insulin drip was started. A Christianson catheter was placed. After the third bolus the patient did start speaking however when placed onto the gurney for transportation he became obtunded again. He did not begin to make urine until the third bolus was given. The patient was not intubated as he was protecting his airway and blowing off CO2 adequately. The patient was critical at time of transport. - Related Data Allergies/Adverse Reactions: Allergies Allergy/AdvReac Type Severity Reaction Status Date / Time cephalexin monohydrate Allergy Unknown Hives Verified 05/07/21 16:38 [From Keflex] codeine AdvReac Unknown Vomiting Verified 05/07/21 16:38 Home Medications: Home Meds Insulin Glarg,Human.Rec.Analog [Lantus Solostar] 20 units SQ BEDTIME 07/22/15 [History] Insulin Lispro [HumaLOG] 6 unit SUBCNJ TID 09/07/17 [History] Omeprazole 20 mg PO DAILY 12/15/19 [History] Nystatin 500,000 unit PO QID #200 ml 07/27/20 [Rx] Past Medical History HEENT History: Reports: Impaired Vision Cardiovascular History: Reports: Heart Murmur Respiratory History: Reports: COPD Gastrointestinal History: Reports: GERD, Other (See Below) Other Gastrointestinal History: acid reflux Musculoskeletal History: Reports: Osteoarthritis, Other (See Below) Other Musculoskeletal History: right sciatic pain Psychiatric History: Reports: Anxiety, Depression Endocrine/Metabolic History: Reports: Diabetes, Type II Other Endocrine/Metabolic History: insulin dependent - Infectious Disease History Infectious Disease History: Reports: Chicken Pox Other Infectious Disease History: polio - Past Surgical History HEENT Surgical History: Reports: Cataract Surgery Social & Family History - Family History Family Medical History: No Pertinent Family History - Tobacco Use Tobacco Use Status *Q: Never Tobacco User - Caffeine Use Caffeine Use: Reports: Coffee Caffeine Use Comment: occasional coffee - Alcohol Use Days Per Week of Alcohol Use: 7 Number of Drinks Per Day: 8 Total Drinks Per Week: 56 - Recreational Drug Use Recreational Drug Use: No H&P Review of Systems - Review of Systems: Review Of Systems: Unable To Obtain (Patient was obtunded) Reason Not Obtained: Patient too obtunded to reply Exam - Exam Exam: See Below - Vital Signs Vital Signs: Last Vital Signs Temp 96.4 F L 05/07/21 19:30 Pulse 83 05/07/21 19:30 Resp 28 H 05/07/21 19:40 BP 85/49 L 05/07/21 19:40 Pulse Ox 96 05/07/21 19:40 Weight: 114 lb - Exam General: Severe Distress, Obtunded. No: Alert, Oriented HEENT: PERRLA, Pupils Equal, Pupils Reactive. No: Mucosa Moist & [place] Lungs: Clear to Auscultation, Other (kussmaul breathing) Cardiovascular: Regular Rate, Regular Rhythm GI/Abdominal Exam: Soft, Non-Tender, No Distention. No: Normal Bowel Sounds Back Exam: Normal Inspection Extremities: Other (Extensive bruising on bilateral knees and right elbow) Peripheral Pulses: 2+: Radial (L) (normal), Radial (R) (normal) Skin: Warm, Dry, Intact Neuro Extensive - Mental Status: No: Alert, Oriented x3, Normal Mood/Affect Psychiatric: No: Alert, Normal Affect, Normal Mood - Patient Data Lab Results Last 24 hrs: Laboratory Results - last 24 hr 05/07/21 05/07/21 05/07/21 Range/Units 16:31 16:31 16:32 WBC 18.2 H (4.5-11.0) K/uL RBC 4.61 (4.30-5.90) M/uL Hgb 13.9 (12.0-15.0) g/dL Hct 49.9 (40.0-54.0) % MCV 108 H (80-98) fL MCH 30 (27-31) pg MCHC 28 L (32-36) % Plt Count 161 (150-400) K/uL Neut % (Auto) 84.8 H (36-66) % Lymph % (Auto) 5.0 L (24-44) % Laporte % (Auto) 9.9 H (2-6) % Eos % (Auto) 0.1 L (2-4) % Baso % (Auto) 0.2 (0-1) % Puncture Site Rt.radial ABG pH 7.040 L* (7.350-7.450) ABG pCO2 13.1 L* (35.0-42.0) mmHg ABG pO2 168.0 H (75.0-100.0) mmHg ABG HCO3 3.4 L (22.0-26.0) mmol/L ABG Total CO2 3.3 L (23.0-27.0) mmol/L ABG O2 Saturation 98.4 H (95.0-98.0) % ABG O2 Content 19.2 (15.0-23.0) %vol ABG Base Excess -27.3 mm/L ABG Hemoglobin 13.9 (13.5-18.0) g/dL ABG Oxyhemoglobin 96.4 % ABG Carboxyhemoglobin 1.0 (0.0-1.6) % ABG Methemoglobin 1.0 % Phoenix Test Passed O2 Delivery Device Room air Sodium 133 L (140-148) mmol/L Potassium 5.1 (3.6-5.2) mmol/L Chloride 89 L (100-108) mmol/L Carbon Dioxide 6 L D (21-32) mmol/L Anion Gap 43.1 H (5.0-14.0) mmol/L BUN 100 H* D (7-18) mg/dL Creatinine 7.0 H* D (0.8-1.3) mg/dL Est Cr Clr Drug Dosing 6.77 mL/min Estimated GFR (MDRD) 8 L (>60) Glucose 1390 H* (74-106) mg/dL POC Glucose (74-106) mg/dL Hemoglobin A1c (4.5-6.2) % Calcium 7.4 L (8.5-10.1) mg/dL Phosphorus (2.5-4.9) mg/dL Magnesium (1.8-2.4) mg/dL Total Bilirubin 0.7 (0.2-1.0) mg/dL AST 26 D (15-37) U/L ALT 25 (12-78) U/L Alkaline Phosphatase 109 (46-116) U/L Total Protein 6.2 L (6.4-8.2) g/dL Albumin 3.3 L (3.4-5.0) g/dL Globulin 2.9 (2.3-3.5) g/dL Albumin/Globulin Ratio 1.1 L (1.2-2.2) Ketones (NEGATIVE) 05/07/21 05/07/21 05/07/21 Range/Units 16:32 16:42 17:58 WBC (4.5-11.0) K/uL RBC (4.30-5.90) M/uL Hgb (12.0-15.0) g/dL Hct (40.0-54.0) % MCV (80-98) fL MCH (27-31) pg MCHC (32-36) % Plt Count (150-400) K/uL Neut % (Auto) (36-66) % Lymph % (Auto) (24-44) % Laporte % (Auto) (2-6) % Eos % (Auto) (2-4) % Baso % (Auto) (0-1) % Puncture Site ABG pH (7.350-7.450) ABG pCO2 (35.0-42.0) mmHg ABG pO2 (75.0-100.0) mmHg ABG HCO3 (22.0-26.0) mmol/L ABG Total CO2 (23.0-27.0) mmol/L ABG O2 Saturation (95.0-98.0) % ABG O2 Content (15.0-23.0) %vol ABG Base Excess mm/L ABG Hemoglobin (13.5-18.0) g/dL ABG Oxyhemoglobin % ABG Carboxyhemoglobin (0.0-1.6) % ABG Methemoglobin % Phoenix Test O2 Delivery Device Sodium (140-148) mmol/L Potassium (3.6-5.2) mmol/L Chloride (100-108) mmol/L Carbon Dioxide (21-32) mmol/L Anion Gap (5.0-14.0) mmol/L BUN (7-18) mg/dL Creatinine (0.8-1.3) mg/dL Est Cr Clr Drug Dosing mL/min Estimated GFR (MDRD) (>60) Glucose (74-106) mg/dL POC Glucose > 600 H* (74-106) mg/dL Hemoglobin A1c 11.3 H (4.5-6.2) % Calcium (8.5-10.1) mg/dL Phosphorus (2.5-4.9) mg/dL Magnesium (1.8-2.4) mg/dL Total Bilirubin (0.2-1.0) mg/dL AST (15-37) U/L ALT (12-78) U/L Alkaline Phosphatase (46-116) U/L Total Protein (6.4-8.2) g/dL Albumin (3.4-5.0) g/dL Globulin (2.3-3.5) g/dL Albumin/Globulin Ratio (1.2-2.2) Ketones Large H (NEGATIVE) 05/07/21 05/07/21 Range/Units 18:15 18:37 WBC (4.5-11.0) K/uL RBC (4.30-5.90) M/uL Hgb (12.0-15.0) g/dL Hct (40.0-54.0) % MCV (80-98) fL MCH (27-31) pg MCHC (32-36) % Plt Count (150-400) K/uL Neut % (Auto) (36-66) % Lymph % (Auto) (24-44) % Laporte % (Auto) (2-6) % Eos % (Auto) (2-4) % Baso % (Auto) (0-1) % Puncture Site ABG pH (7.350-7.450) ABG pCO2 (35.0-42.0) mmHg ABG pO2 (75.0-100.0) mmHg ABG HCO3 (22.0-26.0) mmol/L ABG Total CO2 (23.0-27.0) mmol/L ABG O2 Saturation (95.0-98.0) % ABG O2 Content (15.0-23.0) %vol ABG Base Excess mm/L ABG Hemoglobin (13.5-18.0) g/dL ABG Oxyhemoglobin % ABG Carboxyhemoglobin (0.0-1.6) % ABG Methemoglobin % Phoenix Test O2 Delivery Device Sodium 138 L (140-148) mmol/L Potassium 4.6 (3.6-5.2) mmol/L Chloride 94 L (100-108) mmol/L Carbon Dioxide 8 L (21-32) mmol/L Anion Gap 40.6 H (5.0-14.0) mmol/L BUN 98 H* (7-18) mg/dL Creatinine 6.6 H* (0.8-1.3) mg/dL Est Cr Clr Drug Dosing 7.18 mL/min Estimated GFR (MDRD) 8 L (>60) Glucose 1273 H* (74-106) mg/dL POC Glucose > 600 H* (74-106) mg/dL Hemoglobin A1c (4.5-6.2) % Calcium 7.2 L (8.5-10.1) mg/dL Phosphorus 8.2 H (2.5-4.9) mg/dL Magnesium 3.2 H (1.8-2.4) mg/dL Total Bilirubin (0.2-1.0) mg/dL AST (15-37) U/L ALT (12-78) U/L Alkaline Phosphatase (46-116) U/L Total Protein (6.4-8.2) g/dL Albumin (3.4-5.0) g/dL Globulin (2.3-3.5) g/dL Albumin/Globulin Ratio (1.2-2.2) Ketones (NEGATIVE) Result Diagrams: 05/07/21 16:31 05/07/21 18:15 Sepsis Event Note - Evaluation Sepsis Screening Result: No Definite Risk - Focused Exam Vital Signs: Vital Signs Temp Pulse Resp BP Pulse Ox 05/07/21 19:40 28 H 85/49 L 96 05/07/21 19:30 96.4 F L 83 26 H 95/43 L 92 L 05/07/21 18:50 96.4 F L 30 H 102/43 L 95 05/07/21 16:40 96.6 F L 91 26 H 97/46 L 100 Problem List Initiated/Reviewed/Updated: Yes Orders Last 24hrs: Active Orders 24 hr Category Date Time Status Admission Status [Patient Status] [ADT] Routine ADT 05/07/21 17:54 Active CIWAA Assessment [RC] Q1H Care 05/07/21 18:10 Active Communication Order [RC] ASDIRECTED Care 05/07/21 18:01 Active Diabetes Education [RC] Click to Edit Care 05/07/21 18:12 Active Insert Christianson Catheter [Insert Urinary Catheter] [OM.PC] Care 05/07/21 20:15 Ordered Q24H Notify Provider Laboratory Res [RC] ASDIRECTED Care 05/07/21 18:27 Active Notify Provider [RC] PRN Care 05/07/21 18:01 Active Notify Provider [RC] PRN Care 05/07/21 18:10 Active Urinary Catheter Assessment [RC] ASDIRECTED Care 05/07/21 20:09 Active Vital Signs [RC] Q1H Care 05/07/21 18:12 Active BASIC METABOLIC PANEL,BMP [CHEM] Q4H Lab 05/07/21 22:15 Ordered BASIC METABOLIC PANEL,BMP [CHEM] Q4H Lab 05/08/21 02:15 Ordered BASIC METABOLIC PANEL,BMP [CHEM] Q4H Lab 05/08/21 06:15 Ordered BASIC METABOLIC PANEL,BMP [CHEM] Q4H Lab 05/08/21 10:15 Ordered BASIC METABOLIC PANEL,BMP [CHEM] Q4H Lab 05/08/21 14:15 Ordered GLUCOSE POC LAB TO COLLECT JPM [POC] Stat Lab 05/07/21 16:44 Ordered GLUCOSE RANDOM [CHEM] Q1H Lab 05/07/21 21:15 Ordered GLUCOSE RANDOM [CHEM] Q1H Lab 05/07/21 23:15 Ordered GLUCOSE RANDOM [CHEM] Q1H Lab 05/08/21 00:15 Ordered GLUCOSE RANDOM [CHEM] Q1H Lab 05/08/21 01:15 Ordered GLUCOSE RANDOM [CHEM] Q1H Lab 05/08/21 02:15 Ordered GLUCOSE RANDOM [CHEM] Q1H Lab 05/08/21 03:15 Ordered GLUCOSE RANDOM [CHEM] Q1H Lab 05/08/21 04:15 Ordered GLUCOSE RANDOM [CHEM] Q1H Lab 05/08/21 05:15 Ordered GLUCOSE RANDOM [CHEM] [facility] Lab 05/08/21 06:15 Ordered GLUCOSE RANDOM [CHEM] [facility] Lab 05/08/21 07:15 Ordered GLUCOSE RANDOM [CHEM] [facility] Lab 05/08/21 08:15 Ordered GLUCOSE RANDOM [CHEM] [facility] Lab 05/08/21 09:15 Ordered GLUCOSE RANDOM [CHEM] [facility] Lab 05/08/21 10:15 Ordered GLUCOSE RANDOM [CHEM] [facility] 05/08/21 11:15 Ordered GLUCOSE RANDOM [CHEM] [facility] 05/08/21 12:15 Ordered GLUCOSE RANDOM [CHEM] [facility] 05/08/21 13:15 Ordered GLUCOSE RANDOM [CHEM] [facility] 05/08/21 14:15 Ordered GLUCOSE RANDOM [CHEM] [facility] Lab 05/08/21 15:15 Ordered GLUCOSE RANDOM [CHEM] [facility] 05/08/21 16:15 Ordered GLUCOSE RANDOM [CHEM] [facility] Lab 05/08/21 17:15 Ordered MAGNESIUM [CHEM] [facility] Lab 05/08/21 00:15 Ordered MAGNESIUM [CHEM] [facility] 05/08/21 06:15 Ordered MAGNESIUM [CHEM] [facility] 05/08/21 12:15 Ordered PHOSPHORUS [CHEM] [facility] 05/08/21 00:15 Ordered PHOSPHORUS [CHEM] [facility] 05/08/21 06:15 Ordered PHOSPHORUS [CHEM] [facility] 05/08/21 12:15 Ordered POTASSIUM,K [CHEM] [facility] 05/08/21 00:15 Ordered POTASSIUM,K [CHEM] [facility] 05/08/21 02:15 Ordered POTASSIUM,K [CHEM] [facility] 05/08/21 04:15 Ordered POTASSIUM,K [CHEM] [facility] 05/08/21 06:15 Ordered POTASSIUM,K [CHEM] [facility] 05/08/21 08:15 Ordered POTASSIUM,K [CHEM] [facility] 05/08/21 10:15 Ordered POTASSIUM,K [CHEM] [facility] 05/08/21 12:15 Ordered POTASSIUM,K [CHEM] [facility] 05/08/21 14:15 Ordered POTASSIUM,K [CHEM] [facility] 05/08/21 16:15 Ordered Dextrose 50% in Water Med 05/07/21 18:12 Active 50 ml IVPUSH ONETIME PRN Folic Acid Med 05/08/21 09:00 Active 1 mg PO DAILY Insulin Regular in 0.9 % NACL [Myxredlin in NS 100 UNIT Med 05/07/21 18:00 Active /100 ML] 100 ml IV ASDIRECTED Insulin Regular in 0.9 % NACL [Myxredlin in NS 100 UNIT Med 05/07/21 18:00 Ordered /100 ML] 100 ml IV ASDIRECTED LORazepam [Ativan] Med 05/07/21 18:15 Active See Protocol IV ASDIRECTED LORazepam [Ativan] Med 05/07/21 18:15 Active See Protocol PO ASDIRECTED Magnesium Sulfate/Water [Magnesium Sulfate in Water 2 Med 05/07/21 18:22 Ordered GM/50 ML] 50 ml IV ONETIME Potassium Chloride [KCL in Water 20 MEQ/100 ML] 20 meq Med 05/07/21 19:00 Pending Premix Bag 1 bag IV ONETIME Potassium Chloride [KCL in Water 20 MEQ/100 ML] 20 meq Med 05/07/21 18:12 Ordered Premix Bag 1 bag IV Q2H Potassium Chloride [KCL in Water 20 MEQ/100 ML] 20 meq Med 05/07/21 18:12 Ordered Premix Bag 1 bag IV Q2H Sodium Chloride 0.45% 1,000 ml Med 05/07/21 20:15 Ordered IV BOLUS Sodium Chloride 0.9% [Normal Saline] 1,000 ml Med 05/07/21 18:30 Active IV ASDIRECTED Thiamine [Vitamin B-1] [facility] 05/08/21 09:00 Active 100 mg PO DAILY Medication Administration Instruction [OM.PC] Routine Oth 05/07/21 18:02 Ordered Medication Continuation Instructions [OM.PC] ASDIRECTED Oth 05/07/21 18:15 Ordered Medication Discontinuation Instructions [OM.PC] Oth 05/07/21 18:15 Ordered ASDIRECTED Medication Orders Dextrose/Water (50% Dextrose In Water 50 Ml Syringe) 50 ml IVPUSH ONETIME PRN PRN Reason: Blood Glucose Folic Acid (Folic Acid 1 Mg Tab) 1 mg PO DAILY JUDIE Insulin Regular in 0.9 % NACL (Myxredlin In Ns 100 Unit/100 Ml) 100 mls @ 5.171 mls/hr IV ASDIRECTED JUDIE; Protocol Last Admin: 05/07/21 18:40 Dose: 0.1 units/kg/hr, 5.171 mls/hr Documented by: DAVE Cosigned by: JUSTIN Insulin Regular in 0.9 % NACL (Myxredlin In Ns 100 Unit/100 Ml) 100 mls @ 5.171 mls/hr IV ASDIRECTED JUDIE; Protocol Potassium Chloride 20 meq/ (Premix) 100 mls @ 50 mls/hr IV Q2H PRN PRN Reason: Hypokalemia Potassium Chloride 20 meq/ (Premix) 100 mls @ 50 mls/hr IV Q2H PRN PRN Reason: Hypokalemia Magnesium Sulfate (Magnesium Sulfate In Water 2 Gm/50 Ml) 50 mls @ 25 mls/hr IV ONETIME PRN PRN Reason: low magnesium Sodium Chloride (Normal Saline) 1,000 mls @ 150 mls/hr IV ASDIRECTED JUDIE Potassium Chloride 20 meq/ (Premix) 100 mls @ 50 mls/hr IV ONETIME ONE Stop: 05/07/21 20:59 Sodium Chloride (Sodium Chloride 0.45%) 1,000 mls @ 999 mls/hr IV BOLUS JUDIE Lorazepam (Lorazepam 1 Mg Tab) 0 mg PO ASDIRECTED JUDIE; Protocol Lorazepam (Lorazepam 2 Mg/Ml Sdv) 0 mg IV ASDIRECTED JUDIE; Protocol Thiamine HCl (Thiamine 100 Mg Tab) 100 mg PO DAILY JUDIE Assessment/Plan Comment:: Diabetic ketoacidosis -Initial glucose 1390, second glucose 1273, pH 7, high amount of ketones in the urine -3 L of normal saline given, 1 L half-normal saline started -Insulin drip started, 12 units regular insulin given in ED Acute renal failure secondary to DKA and likely rhabdomyolysis -Initial creatinine 7, second creatinine 6.6 -May need dialysis which is not available at this facility Rhabdomyolysis -Patient had up to a 14-hour downtime -Extensive bruising on the knees and right elbow which he was laying on when he was found in the kitchen on a hard floor Uncontrolled diabetes mellitus Alcohol abuse and dependency - states that he drinks anywhere from 8-10 or more beers per day -At risk for withdrawal however states that although he may get shaky occasionally he has never been in DTs Plan: This patient was flown to [facility] under the care of Dr. Keiht in the ICU with permission from his . This patient left in critical condition Ambika Carranza, DO - Mortality Measure Prognosis:: Poor
[2021-05-08] MEDS ORDERED: Folic Acid 1 MG Tab PO SCH (09:00)
[2021-05-08] MEDS ORDERED: Thiamine 100 MG Tab PO SCH (09:00)
== END 2021-05-07 19:40 | DRG 638 ==
LOC: JP.ED 16:30 → JP.ICU 17:54
PROVIDERS: ADMIT Internal Medicine; ATTEND Internal Medicine
DX: E11.10 Type 2 diabetes mellitus with ketoacidosis without coma (principal); N17.9 Acute kidney failure, unspecified; M62.82 Rhabdomyolysis; Z79.4 Long term (current) use of insulin; F10.20 Alcohol dependence, uncomplicated; J44.9 Chronic obstructive pulmonary disease, unspecified; K21.9 Gastro-esophageal reflux disease without esophagitis; F41.9 Anxiety disorder, unspecified; F32.9 Major depressive disorder, single episode, unspecified; H54.7 Unspecified visual loss
CPT/HCPCS: 36415; 36600; 51702; 80048; 80053; 82009; 82803; 82947; 83036; 83735; 84100; 85025; 99285; J1815-GY; J3490; J7030

== ENCOUNTER 2021-07-19 08:17 | Emergency (ER) | payer MEDICARE, OTHER ==
[2021-07-19] MEDS ORDERED: Ondansetron 4 MG/2 ML SDV IVPUSH ONE (09:04)
[2021-07-19] MEDS ORDERED: Lactated Ringers 1,000 ML IV ONE ×2 (09:06→10:34)
[2021-07-19] MEDS ORDERED: Famotidine 20 MG/2 ML SDV IVPUSH ONE (09:37)
--- NOTE | 2021-07-19 09:38 | EDM.PDOC ---
ED HPI GENERAL MEDICAL PROBLEM - General Chief Complaint: Gastrointestinal Problem Stated Complaint: BLOOD SUGARS ARE HIGH Time Seen by Provider: 07/19/21 09:15 Source of Information: Reports: Patient, Family, Old Records, RN History Limitations: Reports: No Limitations - History of Present Illness INITIAL COMMENTS - FREE TEXT/NARRATIVE: 76 yo male presents with nausea, vomiting, and elevated blood sugars. No fever. Does have mild JAMES and a mild cough. Cough is non-productive. No urinary sx's. Has had a small amt of bright red blood in his emesis. No blood in stool or black stool. Has a pHx of heavy ETOH use. Has a pHx reportedly of DKA. Onset: Gradual Onset Date: 07/16/21 Duration: Day(s): (3), Getting Worse Location: Reports: Abdomen, Generalized Quality: Reports: Other (does not complain of pain) Severity: Moderate Improves with: Reports: None Worsens with: Reports: Other (time) Context: Reports: Other Associated Symptoms: Reports: Cough, Nausea/Vomiting, Shortness of Breath. Denies: Chest Pain, Diaphoresis, Fever/Chills, Headaches, Rash, Syncope Treatments [employer]: Reports: Other (see below) (extra insulin short acting) - Related Data Allergies Allergy/AdvReac Type Severity Reaction Status Date / Time cephalexin monohydrate Allergy Unknown Hives Verified 07/19/21 08:40 [From Keflex] codeine AdvReac Unknown Vomiting Verified 07/19/21 08:40 Home Meds: Home Meds Insulin Glarg,Human.Rec.Analog [Lantus Solostar] 17 units SQ DAILY 07/22/15 [History] Insulin Lispro [HumaLOG] 6 unit SUBCNJ TID 09/07/17 [History] Omeprazole 20 mg PO DAILY 12/15/19 [History] Ondansetron [Zofran ODT] 4 mg PO Q6H PRN #10 tab.dis 07/19/21 [Rx] Past Medical History HEENT History: Reports: Impaired Vision Cardiovascular History: Reports: Heart Murmur Respiratory History: Reports: COPD Gastrointestinal History: Reports: GERD, Other (See Below) Other Gastrointestinal History: acid reflux Musculoskeletal History: Reports: Osteoarthritis, Other (See Below) Other Musculoskeletal History: right sciatic pain Psychiatric History: Reports: Anxiety, Depression Endocrine/Metabolic History: Reports: Diabetes, Type II Other Endocrine/Metabolic History: insulin dependent - Infectious Disease History Infectious Disease History: Reports: Chicken Pox Other Infectious Disease History: polio - Past Surgical History HEENT Surgical History: Reports: Cataract Surgery Social & Family History - Family History Family Medical History: No Pertinent Family History - Tobacco Use Tobacco Use Status *Q: Never Tobacco User - Caffeine Use Caffeine Use: Reports: Coffee Caffeine Use Comment: occasional coffee - Alcohol Use Number of Drinks Per Day: 2 - Recreational Drug Use Recreational Drug Use: No ED ROS GENERAL - Review of Systems Review Of Systems: See Below Constitutional: Reports: Malaise. Denies: Fever, Chills, Diaphoresis HEENT: Reports: No Symptoms Respiratory: Reports: Shortness of Breath, Cough. Denies: Wheezing, Pleuritic Chest Pain, Sputum, Hemoptysis Cardiovascular: Reports: No Symptoms Endocrine: Reports: No Symptoms GI/Abdominal: Reports: Hematemesis, Nausea, Vomiting. Denies: Abdominal Pain, Black Stool, Bloody Stool, Constipation, Diarrhea, Hematochezia : Reports: No Symptoms Musculoskeletal: Reports: No Symptoms Skin: Reports: No Symptoms Neurological: Reports: No Symptoms Psychiatric: Reports: No Symptoms ED EXAM, GI/ABD - Physical Exam Exam: See Below Exam Limited By: No Limitations General Appearance: Alert, WD/WN, No Apparent Distress Eyes: Bilateral: Normal Appearance Ears: Normal External Exam, Normal Canal, Hearing Loss. No: Hearing Grossly Normal Nose: Normal Inspection, No Blood Throat/Mouth: Normal Inspection, Normal Lips, Normal Oropharynx, Normal Voice, No Airway Compromise Head: Atraumatic, Normocephalic Neck: Normal Inspection Respiratory/Chest: No Respiratory Distress, Lungs Clear, Normal Breath Sounds, No Accessory Muscle Use Cardiovascular: Regular Rate, Rhythm, No Edema, Tachycardia GI/Abdominal Exam: Normal Bowel Sounds, Soft, No Distention, Tender (mild epigastric tenderness). No: Non-Tender, Distended, Guarding, Rigid, Rebound, Abnormal Bowel Sounds Back Exam: Normal Inspection. No: CVA Tenderness (R), CVA Tenderness (L) Extremities: Normal Inspection, Normal Range of Motion, Non-Tender, No Pedal Edema Neurological: Alert, Oriented, CN II-XII Intact, Normal Cognition, No Motor/Sensory Deficits Psychiatric: Normal Affect, Normal Mood Skin Exam: Warm, Dry, Intact, Normal Color, No Rash Course - Vital Signs Last Recorded V/S: Last Vital Signs Temp 36.6 C 07/19/21 08:49 Pulse 104 H 07/19/21 11:12 Resp 19 07/19/21 11:12 BP 128/63 07/19/21 11:12 Pulse Ox 98 07/19/21 11:12 - Orders/Labs/Meds Orders: Active Orders 24 hr Category Date Time Status Bladder Scan [RC] ASDIRECTED Care 07/19/21 12:00 Active UA W/MICROSCOPIC [URIN] Stat Lab 07/19/21 09:25 Ordered Dextrose 50% in Water Med 07/19/21 09:58 Active 50 ml IVPUSH ASDIRECTED PRN Dextrose 50% in Water Med 07/19/21 12:27 Active 50 ml IVPUSH ASDIRECTED PRN Glucagon,Human Recombinant [GlucaGen] Med 07/19/21 09:58 Active 1 mg IM ASDIRECTED PRN Glucagon,Human Recombinant [GlucaGen] Med 07/19/21 12:27 Active 1 mg IM ASDIRECTED PRN Medication Orders Dextrose/Water (50% Dextrose In Water 50 Ml Syringe) 50 ml IVPUSH ASDIRECTED PRN PRN Reason: Hypoglycemia Dextrose/Water (50% Dextrose In Water 50 Ml Syringe) 50 ml IVPUSH ASDIRECTED PRN PRN Reason: Hypoglycemia Glucagon (Glucagon,Human Recombinant 1 Mg Vial) 1 mg IM ASDIRECTED PRN PRN Reason: Hypoglycemia Glucagon (Glucagon,Human Recombinant 1 Mg Vial) 1 mg IM ASDIRECTED PRN PRN Reason: Hypoglycemia Labs: Laboratory Tests 07/19/21 07/19/21 07/19/21 Range/Units 09:25 09:29 09:32 WBC 15.6 H (4.5-11.0) K/uL RBC 5.82 (4.30-5.90) M/uL Hgb 17.5 H D (12.0-15.0) g/dL Hct 52.1 (40.0-54.0) % MCV 90 (80-98) fL MCH 30 (27-31) pg MCHC 34 (32-36) % Plt Count 292 (150-400) K/uL VBG pH 7.429 (7.350-7.450) Sodium 139 L (140-148) mmol/L Potassium 3.9 (3.6-5.2) mmol/L Chloride 94 L (100-108) mmol/L Carbon Dioxide 25 D (21-32) mmol/L Anion Gap 23.9 H (5.0-14.0) mmol/L BUN 32 H D (7-18) mg/dL Creatinine 2.6 H D (0.8-1.3) mg/dL Est Cr Clr Drug Dosing 21.59 mL/min Estimated GFR (MDRD) 24 L (>60) Glucose 379 H (74-106) mg/dL POC Glucose (74-106) mg/dL Calcium 9.7 D (8.5-10.1) mg/dL Troponin I (0.000-0.056) ng/mL C-Reactive Protein (0.0-0.3) mg/dL Lipase (73-393) U/L SARS-CoV-2 RNA (CARLOS) (NEGATIVE) 07/19/21 07/19/21 07/19/21 Range/Units 09:33 09:38 10:48 WBC (4.5-11.0) K/uL RBC (4.30-5.90) M/uL Hgb (12.0-15.0) g/dL Hct (40.0-54.0) % MCV (80-98) fL MCH (27-31) pg MCHC (32-36) % Plt Count (150-400) K/uL VBG pH (7.350-7.450) Sodium (140-148) mmol/L Potassium (3.6-5.2) mmol/L Chloride (100-108) mmol/L Carbon Dioxide (21-32) mmol/L Anion Gap (5.0-14.0) mmol/L BUN (7-18) mg/dL Creatinine (0.8-1.3) mg/dL Est Cr Clr Drug Dosing mL/min Estimated GFR (MDRD) (>60) Glucose (74-106) mg/dL POC Glucose (74-106) mg/dL Calcium (8.5-10.1) mg/dL Troponin I < 0.017 (0.000-0.056) ng/mL C-Reactive Protein 0.94 H (0.0-0.3) mg/dL Lipase 53 L (73-393) U/L SARS-CoV-2 RNA (CARLOS) (NEGATIVE) 07/19/21 07/19/21 Range/Units 10:50 11:37 WBC (4.5-11.0) K/uL RBC (4.30-5.90) M/uL Hgb (12.0-15.0) g/dL Hct (40.0-54.0) % MCV (80-98) fL MCH (27-31) pg MCHC (32-36) % Plt Count (150-400) K/uL VBG pH (7.350-7.450) Sodium (140-148) mmol/L Potassium (3.6-5.2) mmol/L Chloride (100-108) mmol/L Carbon Dioxide (21-32) mmol/L Anion Gap (5.0-14.0) mmol/L BUN (7-18) mg/dL Creatinine (0.8-1.3) mg/dL Est Cr Clr Drug Dosing mL/min Estimated GFR (MDRD) (>60) Glucose (74-106) mg/dL POC Glucose 318 H (74-106) mg/dL Calcium (8.5-10.1) mg/dL Troponin I (0.000-0.056) ng/mL C-Reactive Protein (0.0-0.3) mg/dL Lipase (73-393) U/L SARS-CoV-2 RNA (CARLOS) Negative (NEGATIVE) Meds: Medications Generic Name Dose Route Start Last Admin Trade Name Carsonq PRN Reason Stop Dose Admin Dextrose/Water 50 ml 07/19/21 09:58 50% Dextrose In Water 50 Ml Syringe IVPUSH ASDIRECTED PRN Hypoglycemia Dextrose/Water 50 ml 07/19/21 12:27 50% Dextrose In Water 50 Ml Syringe IVPUSH ASDIRECTED PRN Hypoglycemia Glucagon 1 mg 07/19/21 09:58 Glucagon,Human Recombinant 1 Mg Vial IM ASDIRECTED PRN Hypoglycemia Glucagon 1 mg 07/19/21 12:27 Glucagon,Human Recombinant 1 Mg Vial IM ASDIRECTED PRN Hypoglycemia Discontinued Medications Generic Name Dose Route Start Last Admin Trade Name Freq PRN Reason Stop Dose Admin Famotidine 20 mg 07/19/21 09:37 07/19/21 09:46 Famotidine 20 Mg/2 Ml Sdv IVPUSH 07/19/21 09:38 20 mg ONETIME ONE Administration Lactated Ringer's 1,000 mls @ 1,000 mls/hr 07/19/21 09:06 07/19/21 09:09 Ringers, Lactated IV 07/19/21 10:05 1,000 mls/hr BOLUS ONE Administration Lactated Ringer's 1,000 mls @ 1,000 mls/hr 07/19/21 10:34 07/19/21 11:06 Ringers, Lactated IV 07/19/21 11:33 1,000 mls/hr BOLUS ONE Administration Insulin Human Regular 8 unit 07/19/21 09:58 07/19/21 10:17 Insulin Regular, Human 100 Units/Ml 3 Ml Vial SUBCUT 07/19/21 09:59 8 units ONETIME ONE Administration Insulin Human Regular 12 unit 07/19/21 12:27 Insulin Regular, Human 100 Units/Ml 3 Ml Vial SUBCUT 07/19/21 12:28 ONETIME ONE Ondansetron HCl 4 mg 07/19/21 09:04 07/19/21 09:10 Ondansetron 4 Mg/2 Ml Sdv IVPUSH 07/19/21 09:05 4 mg ONETIME ONE Administration - Radiology Interpretation Free Text/Narrative:: CXR- - Re-Assessments/Exams Free Text/Narrative Re-Assessment/Exam: 07/19/21 12:31 Is feeling better, wants to go home. Departure - Departure Time of Disposition: 12:40 Disposition: Home, Self-Care 01 Condition: Fair Clinical Impression: Dehydration, mild Nausea and vomiting Qualifiers: Vomiting type: unspecified Vomiting Intractability: non-intractable Qualified Code(s): R11.2 - Nausea with vomiting, unspecified Gastritis Qualifiers: Gastritis type: unspecified gastritis Chronicity: acute Gastritis bleeding: with bleeding Qualified Code(s): K29.01 - Acute gastritis with bleeding - Discharge Information *PRESCRIPTION DRUG MONITORING PROGRAM REVIEWED*: Not Applicable *COPY OF PRESCRIPTION DRUG MONITORING REPORT IN PATIENT MODESTA: Not Applicable Instructions: Nausea and Vomiting, Adult Referrals: Page Ellis MD [Primary Care Provider] - Forms: ED Department Discharge Additional Instructions: Take famotidine 20 mg every day for 30 days. Use Zofran as needed for nausea control. Avoid ibuprofen, Aleve, aspirin, or carbonated beverages. Recheck with your doctor in 1-2 days. Return if worse. Sepsis Event Note (ED) - Evaluation Sepsis Screening Result: No Definite Risk - Focused Exam Vital Signs: Vital Signs Temp Pulse Resp BP Pulse Ox 07/19/21 11:12 104 H 19 128/63 98 07/19/21 10:20 108 H 19 130/61 98 07/19/21 09:12 116 H 21 H 166/81 H 97 07/19/21 08:49 36.6 C 136 H 16 157/78 H 97 07/19/21 08:39 36.6 C 136 H 16 157/78 H 97 - My Orders Last 24 Hours: My Active Orders 07/19/21 09:25 UA W/MICROSCOPIC [URIN] Stat 07/19/21 09:58 Dextrose 50% in Water 50 ml IVPUSH ASDIRECTED PRN Glucagon,Human Recombinant [GlucaGen] 1 mg IM ASDIRECTED PRN 07/19/21 12:00 Bladder Scan [RC] ASDIRECTED 07/19/21 12:27 Dextrose 50% in Water 50 ml IVPUSH ASDIRECTED PRN Glucagon,Human Recombinant [GlucaGen] 1 mg IM ASDIRECTED PRN - Assessment/Plan Last 24 Hours: My Active Orders 07/19/21 09:25 UA W/MICROSCOPIC [URIN] Stat 07/19/21 09:58 Dextrose 50% in Water 50 ml IVPUSH ASDIRECTED PRN Glucagon,Human Recombinant [GlucaGen] 1 mg IM ASDIRECTED PRN 07/19/21 12:00 Bladder Scan [RC] ASDIRECTED 07/19/21 12:27 Dextrose 50% in Water 50 ml IVPUSH ASDIRECTED PRN Glucagon,Human Recombinant [GlucaGen] 1 mg IM ASDIRECTED PRN
[2021-07-19] MEDS ORDERED: 50% Dextrose in Water 50 ML Syringe IVPUSH PRN ×2 (09:58→12:27)
[2021-07-19] MEDS ORDERED: Glucagon,Human Recombinant 1 MG Vial IM PRN ×2 (09:58→12:27)
[2021-07-19] MEDS ORDERED: Insulin Regular, Human 100 Units/ML 3 ML Vial SUBCUT ONE ×2 (09:58→12:27)
--- NOTE | 2021-07-19 12:03 | CR ---
CHEST: 2 view CLINICAL HISTORY:Elevated white count COMPARISON:2020 FINDINGS: Lungs are emphysematous. Heart size and pulmonary vascularity are normal. No infiltrate effusion or pneumothorax seen. There are atherosclerotic changes in the aorta. Impression: Hyperaeration No acute cardiopulmonary process.
[2021-07-19] MEDS ORDERED: Thiamine 100 MG Tab PO ONE (12:32)
[2021-07-19 13:13] VITALS: BP 149/63; PULSE 99
== END 2021-07-19 13:23 | disposition home or self-care (01) ==
LOC: JP.ED 08:17
DX: K29.01 Acute gastritis with bleeding (principal); E86.0 Dehydration; J44.9 Chronic obstructive pulmonary disease, unspecified; K21.9 Gastro-esophageal reflux disease without esophagitis; E11.9 Type 2 diabetes mellitus without complications; Z88.5 Allergy status to narcotic agent; Z88.1 Allergy status to other antibiotic agents; Z20.822 Contact with and (suspected) exposure to COVID-19
CPT/HCPCS: 36415; 71046; 80048; 82800; 82947; 83690; 84484; 85027; 86140; 87635; 96374; 96375; 99285; A9270; J1815; J2405; J3490; J7120; U0002

== ENCOUNTER 2022-04-27 16:09 | Emergency (ER) | payer OTHER ==
[2022-04-27] MEDS ORDERED: Ondansetron 4 MG/2 ML SDV IVPUSH ONE (16:38)
[2022-04-27] MEDS ORDERED: Sodium Chloride 0.9% 1,000 ML IV SCH (16:45)
[2022-04-27 16:53] LABS: ESTIMATED GFR 32 mL/min (>60)
[2022-04-27] MEDS ORDERED: Insulin Regular, Human 100 Units/ML 3 ML Vial IVPUSH ONE ×2 (16:56→18:07)
[2022-04-27 18:08] LABS: CORONAVIRUS COVID-19 NAA NEGATIVE (NEGATIVE)
[2022-04-27] MEDS ORDERED: NS + KCl 20mEq/L 1,000 ML IV SCH (18:30)
[2022-04-27] MEDS ORDERED: Prochlorperazine 10 MG/2 ML SDV IVPUSH ONE (18:33)
[2022-04-27] MEDS ORDERED: 50% Dextrose in Water 50 ML Syringe IVPUSH PRN ×2 (21:26→21:36)
[2022-04-27] MEDS ORDERED: Insulin Regular in 0.9 % NACL 100 ML IV SCH (21:30)
[2022-04-27] MEDS: Dextrose 5%-0.45% NaCl 1,000 ML IV PRN (22:01)
[2022-04-28] MEDS: Dextrose 5%-0.45% NaCl 1,000 ML IV PRN (03:55)
[2022-04-28 06:00] VITALS: PULSE 95
[2022-04-28 06:02] VITALS: BP 151/65
[2022-04-28] MEDS ORDERED: Metoclopramide 10 MG/2 ML SDV IVPUSH ONE (06:54)
== END 2022-04-28 08:52 | disposition home or self-care (01) ==
LOC: JP.ED 16:09
DX: E10.10 Type 1 diabetes mellitus with ketoacidosis without coma (principal); J44.9 Chronic obstructive pulmonary disease, unspecified; K21.9 Gastro-esophageal reflux disease without esophagitis; Z88.1 Allergy status to other antibiotic agents; Z88.5 Allergy status to narcotic agent; Z79.4 Long term (current) use of insulin; Z79.899 Other long term (current) drug therapy; Z87.891 Personal history of nicotine dependence; Z20.822 Contact with and (suspected) exposure to COVID-19
CPT/HCPCS: 0241U; 36415; 80048; 80053; 82009; 82800; 82803; 82947; 83690; 83735; 84100; 84132; 85025; 96361; 96365; 96375; 99284; J0780; J1815; J2405; J2765; J3480; J7030; J7042

== ENCOUNTER 2023-07-04 11:06 | Emergency (ER) | payer OTHER ==
[2023-07-04] MEDS ORDERED: Ondansetron 4 MG/2 ML SDV IVPUSH ONE (11:38)
[2023-07-04] MEDS ORDERED: Sodium Chloride 0.9% 1,000 ML IV SCH ×2 (11:45→13:00)
[2023-07-04 11:48] LABS: BASOPHILS PERCENT AUTO 0.1 % (0.1-1.3); HEMATOCRIT 46.4 % (38.4-49.7); HEMOGLOBIN 15.3 g/dL (12.9-16.9); IMMATURE GRAN PERCENT AUTO 0.6 % (0.0-0.7); LYMPHOCYTES ABSOLUTE AUTO 0.73 K/uL (0.8-3.3); LYMPHOCYTES PERCENT AUTO 4.1 % (11.4-47.7); MEAN CORPUSCULAR HEMOGLOBIN 30.2 pg (31.6-35.5); MEAN CORPUSCULAR VOLUME 91.5 fL (81.4-99.0); MONOCYTES ABSOLUTE AUTO 1.41 K/uL (0.20-0.90); NEUTROPHILS ABSOLUTE AUTO 15.46 K/uL (1.0-7.6); NEUTROPHILS PERCENT AUTO 87.2 % (40.0-78.1); PLATELET COUNT,PLT 272 K/uL (130-375); RED BLOOD CELL COUNT 5.07 M/uL (4.14-5.76); WHITE BLOOD CELL COUNT,WBC 17.7 K/uL (3.2-11.0)
[2023-07-04 11:52] LABS: BASE EXCESS VENOUS -9.7 mm/L; BICARBONATE,VENOUS 15.4 mmol/L; CARBOXYHEMOGLOBIN 2.1 % (0.0-1.6); O2 SATURATION VENOUS 77.6; OXYHEMOGLOBIN 75.2 %; PCO2 VENOUS 32.6 mm/Hg; PH,VENOUS 7.295 (7.350-7.450); PO2 VENOUS 49.7 mm/Hg; TOTAL HEMOGLOBIN 15.9 g/dL (13.5-18.0)
[2023-07-04 11:54] LABS: BASOPHILS ABSOLUTE AUTO 0.02 K/uL (0.00-0.10)
[2023-07-04 12:14] LABS: A/G RATIO 1.3 (1.2-2.2); ALANINE AMINOTRANSFERASE,ALT 24 U/L (12-78); ALBUMIN 4.4 g/dL (3.4-5.0); ALKALINE PHOSPHATASE 98 U/L (46-116); ASPARTATE AMNIOTRANSFERASE,AST 21 U/L (15-37); BILIRUBIN TOTAL 0.8 mg/dL (0.2-1.0); BLOOD UREA NITROGEN,BUN 34 mg/dL (7-18); CALCIUM 9.3 mg/dL (8.5-10.1); CARBON DIOXIDE,CO2 16 mmol/L (21-32); CHLORIDE,CL 91 mmol/L (100-108); EST CRCL DRUG DOSING (CG) 15.88 mL/min; ESTIMATED GFR 21 mL/min (>60); POTASSIUM,K 5.1 mmol/L (3.6-5.2); PROTEIN TOTAL,TP 7.9 g/dL (6.4-8.2); SODIUM,NA 136 mmol/L (140-148)
[2023-07-04 12:17] LABS: ANION GAP 34.1 mmol/L (5.0-14.0)
[2023-07-04 12:18] LABS: GLUCOSE RANDOM 732 mg/dL (74-106)
[2023-07-04] MEDS ORDERED: 50% Dextrose in Water 50 ML Syringe IVPUSH PRN (12:21)
[2023-07-04] MEDS ORDERED: Insulin Regular, Human 100 Units/ML 3 ML Vial IVPUSH ONE (12:21)
[2023-07-04] MEDS ORDERED: Glucagon,Human Recombinant 1 MG Vial IM PRN (12:21)
[2023-07-04 13:12] VITALS: BP 148/65; PULSE 114
== END 2023-07-04 13:48 | disposition other institution (70) ==
LOC: JP.ED 11:06
DX: E10.10 Type 1 diabetes mellitus with ketoacidosis without coma (principal); J44.9 Chronic obstructive pulmonary disease, unspecified; K21.9 Gastro-esophageal reflux disease without esophagitis; Z79.899 Other long term (current) drug therapy; Z86.16 Personal history of COVID-19; Z87.891 Personal history of nicotine dependence; Z88.1 Allergy status to other antibiotic agents; Z88.5 Allergy status to narcotic agent; Z79.4 Long term (current) use of insulin
CPT/HCPCS: 36415; 80053; 80307; 82009; 82803; 82947; 83690; 85025; 96361; 96374; 99285; J1815; J2405; J7030

== ENCOUNTER 2023-08-23 14:27 | Emergency (ER) | payer OTHER ==
[2023-08-23] MEDS ORDERED: Sodium Chloride 0.9% 10 ML Syringe FLUSH PRN ×2 (14:48→14:51)
[2023-08-23 15:14] LABS: BASOPHILS ABSOLUTE AUTO 0.08 K/uL (0.00-0.10); BASOPHILS PERCENT AUTO 0.4 % (0.1-1.3); EOSINOPHILS PERCENT AUTO 0.1 % (0.0-5.4); HEMATOCRIT 43.3 % (38.4-49.7); IMMATURE GRAN ABSOLUTE AUTO 0.17 K/uL (0.00-0.23); IMMATURE GRAN PERCENT AUTO 0.7 % (0.0-0.7); LYMPHOCYTES ABSOLUTE AUTO 1.66 K/uL (0.8-3.3); LYMPHOCYTES PERCENT AUTO 7.3 % (11.4-47.7); MEAN CORPUSCULAR HEMOGLOBIN 30.3 pg (31.6-35.5); MEAN CORPUSCULAR VOLUME 100.9 fL (81.4-99.0); MONOCYTES ABSOLUTE AUTO 1.43 K/uL (0.20-0.90); MONOCYTES PERCENT AUTO 6.3 % (3.3-12.6); NEUTROPHILS ABSOLUTE AUTO 19.45 K/uL (1.0-7.6); NEUTROPHILS PERCENT AUTO 85.2 % (40.0-78.1); PLATELET COUNT,PLT 282 K/uL (130-375); RED BLOOD CELL COUNT 4.29 M/uL (4.14-5.76); WHITE BLOOD CELL COUNT,WBC 22.8 K/uL (3.2-11.0)
[2023-08-23 15:19] LABS: BASE EXCESS VENOUS -25.9 mm/L; BICARBONATE,VENOUS 4.8 mmol/L; CARBOXYHEMOGLOBIN 2.3 % (0.0-1.6); EOSINOPHILS ABSOLUTE AUTO 0.02 K/uL (0.00-0.40); METHEMOGLOBIN 0.5 %; O2 SATURATION VENOUS 97.8; OXYHEMOGLOBIN 95.1 %; PCO2 VENOUS 19.6 mm/Hg; PH,VENOUS 7.018 (7.350-7.450); PO2 VENOUS 153 mm/Hg; TOTAL HEMOGLOBIN 13.4 g/dL (13.5-18.0)
[2023-08-23] MEDS ORDERED: Insulin Regular, Human 100 Units/ML 3 ML Vial IVPUSH ONE (15:24)
[2023-08-23] MEDS ORDERED: Glucagon,Human Recombinant 1 MG Vial IM PRN (15:24)
[2023-08-23] MEDS ORDERED: 50% Dextrose in Water 50 ML Syringe IVPUSH PRN (15:24)
[2023-08-23] MEDS ORDERED: Levofloxacin/Dextrose 5%-Water 750 MG in Premix Bag 1 BAG IV ONE (15:24)
[2023-08-23] MEDS ORDERED: Vancomycin 1 GM SDV ONE (15:25)
[2023-08-23] MEDS ORDERED: Meropenem 1 GM in Sodium Chloride 0.9% 100 ML IV ONE (15:31)
[2023-08-23 15:33] LABS: LACTIC ACID 7.9 mmol/L (0.4-2.0)
[2023-08-23] MEDS: Sodium Chloride 0.9% 1,000 ML IV ONE ×2 (15:36→16:37)
[2023-08-23] MEDS: Norepinephrine Bit/D5W Premix 4 MG in Premix Bag 1 BAG IV SCH (15:43)
[2023-08-23 15:46] LABS: ALBUMIN 3.5 g/dL (3.4-5.0); BLOOD UREA NITROGEN,BUN 37 mg/dL (7-18); CALCIUM 8.3 mg/dL (8.5-10.1); CHLORIDE,CL 91 mmol/L (100-108); CREATININE 3.3 mg/dL (0.8-1.3); EST CRCL DRUG DOSING (CG) 14.05 mL/min; ESTIMATED GFR 19 mL/min (>60); POTASSIUM,K 5.8 mmol/L (3.6-5.2); PROTEIN TOTAL,TP 6.1 g/dL (6.4-8.2); SODIUM,NA 136 mmol/L (140-148)
[2023-08-23 15:47] LABS: A/G RATIO 1.3 (1.2-2.2); ALANINE AMINOTRANSFERASE,ALT 16 U/L (12-78); ALKALINE PHOSPHATASE 83 U/L (46-116); ASPARTATE AMNIOTRANSFERASE,AST 12 U/L (15-37); BILIRUBIN TOTAL 0.6 mg/dL (0.2-1.0)
[2023-08-23] MEDS: Meropenem 1 GM in Sodium Chloride 0.9% 100 ML IV ONE (15:48)
[2023-08-23 16:01] LABS: ANION GAP 43.8 mmol/L (5.0-14.0); CARBON DIOXIDE,CO2 7 mmol/L (21-32)
[2023-08-23 16:03] LABS: GLUCOSE RANDOM 974 mg/dL (74-106)
[2023-08-23 16:05] LABS: MAGNESIUM 2.5 mg/dL (1.8-2.4); PHOSPHORUS 12.8 mg/dL (2.5-4.9)
[2023-08-23 16:11] LABS: APPEARANCE,URINE CLEAR (CLEAR); BILIRUBIN,URINE SMALL (NEGATIVE); COLOR,URINE YELLOW (YELLOW); GLUCOSE,URINE 500 mg/dL (NEGATIVE); KETONES,URINE 80 mg/dL (NEGATIVE); LEUKOCYTE ESTERASE,URINE NEGATIVE (NEGATIVE); NITRITE,URINE NEGATIVE (NEGATIVE); OCCULT BLOOD,URINE TRACE-LYSED (NEGATIVE); PH,URINE 5.5 (5.0-8.0); PROTEIN,URINE NEGATIVE (NEGATIVE); UROBILINOGEN,URINE 0.2 EU/dL (0.2-1.0)
[2023-08-23 16:20] LABS: AMORPHOUS SEDIMENT,URINE NOT SEEN; BACTERIA,URINE RARE; EPITHELIAL CELLS,URINE RARE; MUCUS,URINE FEW; RBC,URINE 0-5 (0-5); WBC,URINE 0-5 (0-5)
[2023-08-23] MEDS: Insulin Regular, Human 100 Units/ML 3 ML Vial IVPUSH ONE (16:21)
[2023-08-23 17:46] LABS: CORONAVIRUS COVID-19 NAA NEGATIVE (NEGATIVE); INFLUENZA A NAA NEGATIVE (NEGATIVE); INFLUENZA B NAA NEGATIVE (NEGATIVE); RESPIRATORY SYNCYTIAL VIR NAA NEGATIVE (NEGATIVE)
[2023-08-23 19:23] VITALS: BP 91/50; PULSE 110
== END 2023-08-23 17:50 ==
LOC: JP.ED 14:27
DX: A41.9 Sepsis, unspecified organism (principal); E10.10 Type 1 diabetes mellitus with ketoacidosis without coma; G93.40 Encephalopathy, unspecified; E83.39 Other disorders of phosphorus metabolism; E83.41 Hypermagnesemia; J43.9 Emphysema, unspecified; I95.9 Hypotension, unspecified; K21.9 Gastro-esophageal reflux disease without esophagitis; Z79.4 Long term (current) use of insulin; Z79.899 Other long term (current) drug therapy; Z88.5 Allergy status to narcotic agent; Z88.1 Allergy status to other antibiotic agents; Z86.16 Personal history of COVID-19; Z20.822 Contact with and (suspected) exposure to COVID-19
CPT/HCPCS: 0241U; 36415; 51702; 71045; 80053; 81001; 82009; 82803; 83605; 83735; 84100; 84484; 85025; 87040; 87086; 93005; 96365; 96367; 96368; 99285; J1815; J2185; J3370; J3490; J7030; J7050

== ENCOUNTER 2023-10-24 13:01 | Emergency (ER) | payer OTHER ==
[2023-10-24] MEDS ORDERED: Ondansetron 4 MG/2 ML SDV IVPUSH ONE (13:10)
[2023-10-24] MEDS: Sodium Chloride 0.9% 1,000 ML IV SCH ×2 (13:10→15:27)
[2023-10-24 13:27] LABS: BASOPHILS ABSOLUTE AUTO 0.06 K/uL (0.00-0.10); BASOPHILS PERCENT AUTO 0.3 % (0.1-1.3); EOSINOPHILS PERCENT AUTO 0.1 % (0.0-5.4); HEMATOCRIT 35.1 % (38.4-49.7); HEMOGLOBIN 10.8 g/dL (12.9-16.9); IMMATURE GRAN ABSOLUTE AUTO 0.33 K/uL (0.00-0.23); IMMATURE GRAN PERCENT AUTO 1.5 % (0.0-0.7); LYMPHOCYTES ABSOLUTE AUTO 1.36 K/uL (0.8-3.3); LYMPHOCYTES PERCENT AUTO 6.3 % (11.4-47.7); MEAN CORPUSCULAR HEMOGLOBIN 29.8 pg (31.6-35.5); MEAN CORPUSCULAR HGB CONC 30.8 g/dL (31.6-35.5); MONOCYTES ABSOLUTE AUTO 1.91 K/uL (0.20-0.90); MONOCYTES PERCENT AUTO 8.8 % (3.3-12.6); NEUTROPHILS ABSOLUTE AUTO 17.98 K/uL (1.0-7.6); PLATELET COUNT,PLT 237 K/uL (130-375); RED BLOOD CELL COUNT 3.62 M/uL (4.14-5.76); WHITE BLOOD CELL COUNT,WBC 21.7 K/uL (3.2-11.0)
[2023-10-24 13:28] LABS: BASE EXCESS VENOUS -21.6 mm/L; BICARBONATE,VENOUS 6.6 mmol/L; CARBOXYHEMOGLOBIN 2.6 % (0.0-1.6); METHEMOGLOBIN 1.5 %; O2 SATURATION VENOUS 77.9; OXYHEMOGLOBIN 74.7 %; PCO2 VENOUS 21.2 mm/Hg; PO2 VENOUS 48.7 mm/Hg; TOTAL HEMOGLOBIN 11.3 g/dL (13.5-18.0)
[2023-10-24 13:30] LABS: EOSINOPHILS ABSOLUTE AUTO 0.02 K/uL (0.00-0.40)
[2023-10-24 13:52] LABS: PROTHROMBIN TIME 9.9 sec (9.2-10.6)
[2023-10-24 13:54] LABS: A/G RATIO 1.3 (1.2-2.2); ALANINE AMINOTRANSFERASE,ALT 28 U/L (12-78); ALBUMIN 3.5 g/dL (3.4-5.0); ALKALINE PHOSPHATASE 86 U/L (46-116); ASPARTATE AMNIOTRANSFERASE,AST 40 U/L (15-37); BILIRUBIN TOTAL 0.8 mg/dL (0.2-1.0); BLOOD UREA NITROGEN,BUN 50 mg/dL (7-18); CHLORIDE,CL 95 mmol/L (100-108); CREATININE 3.4 mg/dL (0.8-1.3); ESTIMATED GFR 18 mL/min (>60); PROTEIN TOTAL,TP 6.2 g/dL (6.4-8.2); SODIUM,NA 133 mmol/L (140-148)
[2023-10-24 13:58] LABS: CARBON DIOXIDE,CO2 9 mmol/L (21-32); GLUCOSE RANDOM 734 mg/dL (74-106)
[2023-10-24] MEDS ORDERED: 50% Dextrose in Water 50 ML Syringe IVPUSH PRN ×2 (14:04→15:06)
[2023-10-24] MEDS ORDERED: Aspirin 81 MG Tab.Chew PO ONE (14:04)
[2023-10-24] MEDS ORDERED: Glucagon,Human Recombinant 1 MG Vial IM PRN ×2 (14:04→15:06)
[2023-10-24] MEDS ORDERED: Insulin Regular, Human 100 Units/ML 3 ML Vial IVPUSH ONE ×2 (14:04→15:06)
[2023-10-24] MEDS ORDERED: Heparin Sodium 5,000 Units/ML Vial IVPUSH ONE ×3 (14:15→14:30)
[2023-10-24 14:29] LABS: BILIRUBIN,URINE SMALL (NEGATIVE); COLOR,URINE YELLOW (YELLOW); GLUCOSE,URINE 500 mg/dL (NEGATIVE); KETONES,URINE 80 mg/dL (NEGATIVE); LEUKOCYTE ESTERASE,URINE NEGATIVE (NEGATIVE); NITRITE,URINE NEGATIVE (NEGATIVE); OCCULT BLOOD,URINE TRACE-LYSED (NEGATIVE); PH,URINE 5.5 (5.0-8.0); PROTEIN,URINE 30 mg/dL (NEGATIVE); UROBILINOGEN,URINE 0.2 EU/dL (0.2-1.0)
[2023-10-24 14:35] LABS: AMORPHOUS SEDIMENT,URINE NOT SEEN; APPEARANCE,URINE SLIGHTLY CLOUDY (CLEAR); BACTERIA,URINE FEW; EPITHELIAL CELLS,URINE NOT SEEN; MUCUS,URINE RARE; RBC,URINE 0-5 (0-5); WBC,URINE 0-5 (0-5)
[2023-10-24 14:37] LABS: CORONAVIRUS COVID-19 NAA NEGATIVE (NEGATIVE); INFLUENZA A NAA NEGATIVE (NEGATIVE); INFLUENZA B NAA NEGATIVE (NEGATIVE); RESPIRATORY SYNCYTIAL VIR NAA NEGATIVE (NEGATIVE)
[2023-10-24] MEDS ORDERED: HYDROmorphone 0.5 MG/0.5 ML Syringe IVPUSH ONE (15:40)
[2023-10-24] MEDS ORDERED: Nitroglycerin 0.4 MG Tab.SL SL PRN (15:40)
[2023-10-24] MEDS ORDERED: Sodium Chloride 0.9% 1,000 ML IV SCH (15:45)
[2023-10-24 15:56] LABS: BASE EXCESS VENOUS -17.3 mm/L; BICARBONATE,VENOUS 9.5 mmol/L; CARBOXYHEMOGLOBIN 2.9 % (0.0-1.6); O2 SATURATION VENOUS 78.8; OXYHEMOGLOBIN 75.7 %; PCO2 VENOUS 25.7 mm/Hg; PH,VENOUS 7.192 (7.350-7.450); PO2 VENOUS 48.3 mm/Hg; TOTAL HEMOGLOBIN 11.1 g/dL (13.5-18.0)
[2023-10-24 16:05] VITALS: BP 97/43; PULSE 108
[2023-10-24 16:16] LABS: CREATININE 3.1 mg/dL (0.8-1.3); EST CRCL DRUG DOSING (CG) 18.21 mL/min; POTASSIUM,K 4.7 mmol/L (3.6-5.2)
[2023-10-24 16:18] LABS: ANION GAP 30.7 mmol/L (5.0-14.0)
== END 2023-10-24 17:40 | disposition critical access hospital (66) ==
LOC: JP.ED 13:01
DX: E10.10 Type 1 diabetes mellitus with ketoacidosis without coma (principal); I21.4 Non-ST elevation (NSTEMI) myocardial infarction; E86.0 Dehydration; Z20.822 Contact with and (suspected) exposure to COVID-19; J44.9 Chronic obstructive pulmonary disease, unspecified; K21.9 Gastro-esophageal reflux disease without esophagitis; Z79.4 Long term (current) use of insulin; Z79.899 Other long term (current) drug therapy; Z88.1 Allergy status to other antibiotic agents; Z88.5 Allergy status to narcotic agent; Z86.16 Personal history of COVID-19
CPT/HCPCS: 0241U; 36415; 51702; 71045; 80048; 80053; 81001; 82803; 82947; 83605; 84145; 84484; 85025; 85610; 87040; 93005; 96361; 96374; 96375; 99285; A9270; J1170; J1644; J1815; J2405; J7030

== ENCOUNTER 2023-11-15 13:23 | Observation (INO) | payer MEDICARE, OTHER ==
[2023-11-15] MEDS ORDERED: Acetaminophen 325 MG Tab PO PRN (14:59)
[2023-11-15] MEDS ORDERED: Sodium Chloride 0.9% 10 ML Syringe FLUSH PRN (14:59)
[2023-11-15] MEDS ORDERED: Ondansetron 4 MG/2 ML SDV IV PRN (14:59)
[2023-11-15] MEDS ORDERED: Glucose Gel 15 GM in 37.5 GM Tube PO PRN (14:59)
[2023-11-15] MEDS ORDERED: 50% Dextrose in Water 50 ML Syringe IV PRN (14:59)
[2023-11-15] MEDS ORDERED: Polyethylene Glycol 3350 Powder 17 GM Packet PO PRN (14:59)
[2023-11-15] MEDS ORDERED: 50% Dextrose in Water 50 ML Syringe IVPUSH PRN (15:07)
[2023-11-15] MEDS ORDERED: Glucagon,Human Recombinant 1 MG Vial IM PRN (15:07)
[2023-11-15 16:27] LABS: CORONAVIRUS COVID-19 NAA NEGATIVE (NEGATIVE); INFLUENZA A NAA NEGATIVE (NEGATIVE); INFLUENZA B NAA NEGATIVE (NEGATIVE); RESPIRATORY SYNCYTIAL VIR NAA NEGATIVE (NEGATIVE)
[2023-11-15] MEDS ORDERED: atorvaSTATin 20 MG Tab PO SCH (17:00)
[2023-11-15] MEDS: Enoxaparin 40 MG/0.4 ML Syringe SUBCUT SCH (17:22)
[2023-11-15] MEDS: Insulin Lispro 100 Unit/ML 3 ML KwikPen SUBCUT SCH (17:25)
[2023-11-15] MEDS: AMYLASE PO SCH (17:28)
[2023-11-15] MEDS: PROTEASE PO SCH (17:28)
[2023-11-15] MEDS: LIPASE PO SCH (17:28)
[2023-11-16 06:24] LABS: HEMATOCRIT 38.5 % (38.4-49.7); HEMOGLOBIN 12.7 g/dL (12.9-16.9); MEAN CORPUSCULAR HEMOGLOBIN 29.4 pg (31.6-35.5); MEAN CORPUSCULAR VOLUME 89.1 fL (81.4-99.0); RED BLOOD CELL COUNT 4.32 M/uL (4.14-5.76); WHITE BLOOD CELL COUNT,WBC 5.7 K/uL (3.2-11.0)
[2023-11-16 06:27] LABS: CALCIUM 8.4 mg/dL (8.5-10.1); CREATININE 0.9 mg/dL (0.8-1.3); EST CRCL DRUG DOSING (CG) 52.86 mL/min; MAGNESIUM 1.7 mg/dL (1.8-2.4); POTASSIUM,K 3.7 mmol/L (3.6-5.2)
[2023-11-16 06:36] LABS: ANION GAP 9.7 mmol/L (5.0-14.0)
[2023-11-16] MEDS ORDERED: Pantoprazole 40 MG Tab.CR PO SCH (07:30)
[2023-11-16] MEDS: Insulin Lispro 100 Unit/ML 3 ML KwikPen SUBCUT SCH ×4 (07:50→17:20)
[2023-11-16] MEDS: PROTEASE PO SCH ×3 (08:15→17:19)
[2023-11-16] MEDS: AMYLASE PO SCH ×3 (08:15→17:19)
[2023-11-16] MEDS: LIPASE PO SCH ×3 (08:15→17:19)
[2023-11-16] MEDS: OMEPRAZOLE 40 MG PO SCH (08:16)
[2023-11-16] MEDS: Insulin Glargine,Human Rec. Analog 100 Units/ML 3 ML Pen SUBCUT SCH (08:18)
[2023-11-16] MEDS: Magnesium Oxide 400 MG Tab PO SCH ×2 (08:22→20:15)
[2023-11-16] MEDS ORDERED: DULOXETINE 60 MG PO SCH (09:00)
[2023-11-16] MEDS ORDERED: DULOXETINE 30 MG PO SCH (09:00)
[2023-11-16] MEDS ORDERED: Magnesium Sulfate/Water 2 GM in Premix Bag 1 BAG IV SCH (10:00)
[2023-11-16] MEDS ORDERED: ATORVASTATIN 40 MG PO SCH (17:00)
[2023-11-16] MEDS: Enoxaparin 40 MG/0.4 ML Syringe SUBCUT SCH (17:22)
[2023-11-17 05:18] LABS: CALCIUM 8.3 mg/dL (8.5-10.1); CREATININE 0.8 mg/dL (0.8-1.3); EST CRCL DRUG DOSING (CG) 59.47 mL/min; POTASSIUM,K 3.4 mmol/L (3.6-5.2)
[2023-11-17 05:26] LABS: ANION GAP 12.4 mmol/L (5.0-14.0)
[2023-11-17] MEDS: OMEPRAZOLE 40 MG PO SCH (07:09)
[2023-11-17] MEDS: AMYLASE PO SCH (07:09)
[2023-11-17] MEDS: PROTEASE PO SCH (07:09)
[2023-11-17] MEDS: LIPASE PO SCH (07:09)
[2023-11-17] MEDS: Insulin Lispro 100 Unit/ML 3 ML KwikPen SUBCUT SCH (08:08)
[2023-11-17] MEDS: Insulin Glargine,Human Rec. Analog 100 Units/ML 3 ML Pen SUBCUT SCH (08:09)
[2023-11-17] MEDS: Magnesium Oxide 400 MG Tab PO SCH (08:10)
[2023-11-17] MEDS ORDERED: Potassium Chloride 20 MEQ Tab.ER PO ONE (08:15)
[2023-11-17] MEDS ORDERED: DULoxetine 30 MG Cap PO SCH (09:00)
[2023-11-17 11:10] VITALS: BP 138/62; PULSE 92
== END 2023-11-17 12:07 | disposition home or self-care (01) ==
LOC: JP.MS 13:23
PROVIDERS: ADMIT Hospitalist; ATTEND Hospitalist
DX: I95.1 Orthostatic hypotension (principal); E10.69 Type 1 diabetes mellitus with other specified complication; Z79.899 Other long term (current) drug therapy; Z88.1 Allergy status to other antibiotic agents; Z88.5 Allergy status to narcotic agent; Z87.891 Personal history of nicotine dependence
CPT/HCPCS: 0241U; 36415; 80048; 82947; 83735; 84484; 85027; 93005; 97161; A9270; J1650; J1815; J3475; 96365; 96366; 96372; G0378

== ENCOUNTER 2023-12-19 03:28 | Inpatient (IN) | payer OTHER, MEDICARE ==
[2023-12-19] MEDS: Ondansetron 4 MG/2 ML SDV IV PRN (03:40)
[2023-12-19] MEDS: Sodium Bicarbonate 8.4% 50 MEQ/50 ML Syringe IVPUSH ONE (03:58)
[2023-12-19] MEDS: Prochlorperazine 10 MG/2 ML SDV IVPUSH ONE (05:45)
[2023-12-19] MEDS: Sodium Chloride 0.9% 1,000 ML IV SCH (06:00)
[2023-12-19] MEDS: Piperacillin/Tazobactam 4.5 GM in Sodium Chloride 0.9% 100 ML IV ONE (06:20)
[2023-12-19] MEDS: Insulin Regular in 0.9 % NACL 100 ML IV SCH (09:30)
[2023-12-19] MEDS: Norepinephrine Bit/D5W Premix 4 MG in Premix Bag 1 BAG IV SCH (09:30)
[2023-12-19] MEDS ORDERED: Pantoprazole 40 MG Vial IV ONE (10:00)
[2023-12-19] MEDS: Pantoprazole 40 MG Vial IV ONE (10:00)
[2023-12-19] MEDS ORDERED: Sennosides/Docusate Sodium 50-8.6 MG Tab PO PRN (10:37)
[2023-12-19] MEDS ORDERED: Acetaminophen 325 MG Tab PO PRN ×2 (10:37→11:31)
[2023-12-19] MEDS ORDERED: Ondansetron 4 MG Tab.DIS PO PRN (10:37)
[2023-12-19] MEDS ORDERED: Magnesium Hydroxide 400 MG/5 ML Susp 30 ML Cup PO PRN (10:37)
[2023-12-19] MEDS ORDERED: Ondansetron 4 MG/2 ML SDV IVPUSH PRN (11:30)
[2023-12-19] MEDS ORDERED: Acetaminophen 650 MG Supp RECTAL PRN (11:32)
[2023-12-19] MEDS ORDERED: Sodium Chloride 0.9% 1,000 ML IV SCH (11:45)
[2023-12-19 11:47] LABS: CALCIUM 7.7 mg/dL (8.5-10.1); EST CRCL DRUG DOSING (CG) 24.44 mL/min
[2023-12-19 12:38] LABS: BASOPHILS ABSOLUTE AUTO 0.04 K/uL (0.00-0.10); BASOPHILS PERCENT AUTO 0.3 % (0.1-1.3); EOSINOPHILS ABSOLUTE AUTO 0.02 K/uL (0.00-0.40); EOSINOPHILS PERCENT AUTO 0.2 % (0.0-5.4); IMMATURE GRAN ABSOLUTE AUTO 0.08 K/uL (0.00-0.23); IMMATURE GRAN PERCENT AUTO 0.7 % (0.0-0.7); LYMPHOCYTES ABSOLUTE AUTO 1.14 K/uL (0.8-3.3); LYMPHOCYTES PERCENT AUTO 9.7 % (11.4-47.7); MEAN CORPUSCULAR HEMOGLOBIN 29.7 pg (31.6-35.5); MEAN CORPUSCULAR HGB CONC 29.7 g/dL (31.6-35.5); MONOCYTES ABSOLUTE AUTO 0.78 K/uL (0.20-0.90); MONOCYTES PERCENT AUTO 6.6 % (3.3-12.6); NEUTROPHILS ABSOLUTE AUTO 9.75 K/uL (1.0-7.6); NEUTROPHILS PERCENT AUTO 82.5 % (40.0-78.1); PLATELET COUNT,PLT 278 K/uL (130-375); WHITE BLOOD CELL COUNT,WBC 11.8 K/uL (3.2-11.0)
[2023-12-19 12:39] LABS: PH,VENOUS 7.057 (7.350-7.450)
[2023-12-19 12:40] LABS: BASE EXCESS VENOUS -22.9 mm/L; BICARBONATE,VENOUS 6.5 mmol/L; O2 SATURATION VENOUS 74.5; PO2 VENOUS 57.4 mm/Hg
[2023-12-19 12:41] LABS: METHEMOGLOBIN 1.6 %; OXYHEMOGLOBIN 71.8 %; TOTAL HEMOGLOBIN 11.6 g/dL (13.5-18.0)
[2023-12-19 12:43] LABS: A/G RATIO 1.1 (1.2-2.2); ALANINE AMINOTRANSFERASE,ALT 28 U/L (12-78); ALBUMIN 3.1 g/dL (3.4-5.0); ALKALINE PHOSPHATASE 116 U/L (46-116); ASPARTATE AMNIOTRANSFERASE,AST 13 U/L (15-37); BILIRUBIN TOTAL 0.6 mg/dL (0.2-1.0); BLOOD UREA NITROGEN,BUN 32 mg/dL (7-18); CALCIUM 7.9 mg/dL (8.5-10.1); CHLORIDE,CL 94 mmol/L (100-108); CREATININE 2.2 mg/dL (0.8-1.3); EST CRCL DRUG DOSING (CG) 22.22 mL/min; ESTIMATED GFR 30 mL/min (>60); PROTEIN TOTAL,TP 5.9 g/dL (6.4-8.2); SODIUM,NA 136 mmol/L (140-148); TROPONIN I HIGH SENSITIVITY 14.6 pg/mL (<=60.3)
[2023-12-19 12:45] LABS: POTASSIUM,K 6.3 mmol/L (3.6-5.2)
[2023-12-19 12:47] LABS: ANION GAP 41.3 mmol/L (5.0-14.0); CARBON DIOXIDE,CO2 7 mmol/L (21-32)
[2023-12-19 12:49] LABS: C-REACTIVE PROTEIN < 0.50 mg/dL (<0.50)
[2023-12-19 12:55] LABS: GLUCOSE RANDOM 987 mg/dL (74-106)
[2023-12-19 12:56] LABS: CORONAVIRUS COVID-19 NAA NEGATIVE (NEGATIVE); INFLUENZA A NAA NEGATIVE (NEGATIVE); INFLUENZA B NAA NEGATIVE (NEGATIVE); RESPIRATORY SYNCYTIAL VIR NAA NEGATIVE (NEGATIVE)
[2023-12-19 14:27] LABS: ANION GAP 11.6 mmol/L (5.0-14.0); CALCIUM 7.6 mg/dL (8.5-10.1); CREATININE 1.7 mg/dL (0.8-1.3); EST CRCL DRUG DOSING (CG) 28.76 mL/min; POTASSIUM,K 3.9 mmol/L (3.6-5.2)
[2023-12-19] MEDS ORDERED: 50% Dextrose in Water 50 ML Syringe IVPUSH PRN (15:16)
[2023-12-19] MEDS ORDERED: Glucagon,Human Recombinant 1 MG Vial IM PRN (15:16)
[2023-12-19] MEDS: Insulin Glargine,Human Rec. Analog 100 Units/ML 3 ML Pen SUBCUT ONE (17:14)
[2023-12-19] MEDS: Insulin Lispro 100 Unit/ML 3 ML KwikPen SUBCUT SCH ×2 (17:19→21:44)
[2023-12-19 18:43] LABS: CALCIUM 7.7 mg/dL (8.5-10.1); CREATININE 1.4 mg/dL (0.8-1.3); EST CRCL DRUG DOSING (CG) 34.92 mL/min; POTASSIUM,K 3.9 mmol/L (3.6-5.2)
[2023-12-19 18:56] LABS: ANION GAP 13.9 mmol/L (5.0-14.0)
[2023-12-19] MEDS ORDERED: Pantoprazole 40 MG Vial IV SCH (22:00)
[2023-12-19] MEDS: Pantoprazole 40 MG Vial IV SCH (23:52)
[2023-12-20] MEDS: Norepinephrine Bit/D5W Premix 4 MG in Premix Bag 1 BAG IV SCH (00:36)
[2023-12-20 02:17] LABS: ANION GAP 14.5 mmol/L (5.0-14.0); CALCIUM 7.3 mg/dL (8.5-10.1); CREATININE 1.3 mg/dL (0.8-1.3); EST CRCL DRUG DOSING (CG) 37.61 mL/min; POTASSIUM,K 3.5 mmol/L (3.6-5.2)
[2023-12-20] MEDS: Potassium Chloride 20 MEQ Tab.ER PO ONE (08:19)
[2023-12-20] MEDS: Insulin Glargine,Human Rec. Analog 100 Units/ML 3 ML Pen SUBCUT SCH (08:38)
[2023-12-20] MEDS: Pantoprazole 40 MG Tab.CR PO SCH (11:15)
[2023-12-20] MEDS: Insulin Lispro 100 Unit/ML 3 ML KwikPen SUBCUT SCH (17:42)
[2023-12-20] MEDS: Sodium Chloride 0.9% 1,000 ML IV SCH (21:53)
[2023-12-21 05:01] LABS: HEMATOCRIT 30.9 % (38.4-49.7); HEMOGLOBIN 10.2 g/dL (12.9-16.9); MEAN CORPUSCULAR HEMOGLOBIN 29.5 pg (31.6-35.5); MEAN CORPUSCULAR VOLUME 89.3 fL (81.4-99.0); RED BLOOD CELL COUNT 3.46 M/uL (4.14-5.76); WHITE BLOOD CELL COUNT,WBC 6.1 K/uL (3.2-11.0)
[2023-12-21 05:16] LABS: CALCIUM 7.4 mg/dL (8.5-10.1); CREATININE 0.8 mg/dL (0.8-1.3); EST CRCL DRUG DOSING (CG) 61.11 mL/min; POTASSIUM,K 3.5 mmol/L (3.6-5.2)
[2023-12-21 05:17] LABS: ANION GAP 13.5 mmol/L (5.0-14.0)
[2023-12-21] MEDS: Potassium Chloride 20 MEQ Tab.ER PO ONE (08:55)
[2023-12-21 11:25] VITALS: BP 124/55; PULSE 82
== END 2023-12-21 14:45 | disposition home or self-care (01) | DRG 682 ==
LOC: JP.ED 03:28 → JP.ICU 09:30 → JP.ED 10:08
PROVIDERS: ADMIT Internal Medicine; ATTEND Internal Medicine
PROC: 3E033XZ Introduction of Vasopressor into Peripheral Vein, Percutaneous Approach (ICD-10-PCS; principal; 2023-12-19)
DX: N17.9 Acute kidney failure, unspecified (principal); E10.10 Type 1 diabetes mellitus with ketoacidosis without coma; K92.0 Hematemesis; E87.5 Hyperkalemia; I95.9 Hypotension, unspecified; E78.00 Pure hypercholesterolemia, unspecified; J44.9 Chronic obstructive pulmonary disease, unspecified; K21.9 Gastro-esophageal reflux disease without esophagitis; G89.29 Other chronic pain; M54.9 Dorsalgia, unspecified; M19.90 Unspecified osteoarthritis, unspecified site; F41.9 Anxiety disorder, unspecified; E86.0 Dehydration; F32.9 Major depressive disorder, single episode, unspecified; Z98.49 Cataract extraction status, unspecified eye; Z79.4 Long term (current) use of insulin; Z79.899 Other long term (current) drug therapy; Z88.8 Allergy status to other drugs, medicaments and biological substances; I25.2 Old myocardial infarction; Z88.5 Allergy status to narcotic agent; Z11.52 Encounter for screening for COVID-19
CPT/HCPCS: 0241U; 36415; 70450; 71045; 71045-26; 71250; 74176; 80048; 80053; 82009; 82271; 82803; 82947; 83605; 84484; 85018; 85025; 85027; 86140; 87040; 93306; 99223; 99232; 99238; A9270-GY; C9113; J0780; J1815; J1815-GY; J2405; J2543; J3370; J3490; J7030; J7050

== ENCOUNTER 2024-05-21 16:29 | Inpatient (IN) | payer OTHER, MEDICARE ==
[2024-05-21] MEDS ORDERED: 50% Dextrose in Water 50 ML Syringe IVPUSH PRN ×2 (16:35→23:47)
[2024-05-21] MEDS ORDERED: Glucagon,Human Recombinant 1 MG Vial IM PRN ×2 (16:35→23:47)
[2024-05-21 16:50] LABS: BASOPHILS PERCENT AUTO 0.1 % (0.1-1.3); HEMATOCRIT 34.9 % (38.4-49.7); HEMOGLOBIN 12.4 g/dL (12.9-16.9); IMMATURE GRAN ABSOLUTE AUTO 0.08 K/uL (0.00-0.23); IMMATURE GRAN PERCENT AUTO 0.6 % (0.0-0.7); LYMPHOCYTES PERCENT AUTO 6.5 % (11.4-47.7); MEAN CORPUSCULAR HEMOGLOBIN 29.5 pg (31.6-35.5); MEAN CORPUSCULAR HGB CONC 35.5 g/dL (31.6-35.5); MEAN CORPUSCULAR VOLUME 83.1 fL (81.4-99.0); MONOCYTES ABSOLUTE AUTO 1.43 K/uL (0.20-0.90); MONOCYTES PERCENT AUTO 10.3 % (3.3-12.6); NEUTROPHILS ABSOLUTE AUTO 11.41 K/uL (1.0-7.6); NEUTROPHILS PERCENT AUTO 82.5 % (40.0-78.1); PLATELET COUNT,PLT 241 K/uL (130-375); WHITE BLOOD CELL COUNT,WBC 13.8 K/uL (3.2-11.0)
[2024-05-21 16:53] LABS: BASE EXCESS ARTERIAL -6.2 mm/L; BICARBONATE,ARTERIAL 17.3 mmol/L (22.0-26.0); METHEMOGLOBIN 0.8 %; OXYHEMOGLOBIN 95.7 %; PCO2 ARTERIAL 29.5 mmHg (35.0-42.0)
[2024-05-21] MEDS: Sodium Chloride 0.9% 1,000 ML IV ONE (17:02)
[2024-05-21 17:03] LABS: O2 SATURATION ARTERIAL > 99.3 % (95.0-98.0)
[2024-05-21] MEDS: Insulin Regular, Human 100 Units/ML 3 ML Vial IVPUSH ONE (17:05)
[2024-05-21 17:22] LABS: BASOPHILS ABSOLUTE AUTO 0.02 K/uL (0.00-0.10)
[2024-05-21 17:31] LABS: ALANINE AMINOTRANSFERASE,ALT 15 U/L (12-78); ALKALINE PHOSPHATASE 106 U/L (46-116); ASPARTATE AMNIOTRANSFERASE,AST 17 U/L (15-37); BILIRUBIN TOTAL 0.4 mg/dL (0.2-1.0); BLOOD UREA NITROGEN,BUN 56 mg/dL (7-18); CALCIUM 7.2 mg/dL (8.5-10.1); CARBON DIOXIDE,CO2 18 mmol/L (21-32); CHLORIDE,CL 103 mmol/L (100-108); CREATININE 2.6 mg/dL (0.8-1.3); ESTIMATED GFR 25 mL/min (>60); POTASSIUM,K 3.9 mmol/L (3.6-5.2); SODIUM,NA 136 mmol/L (140-148); TROPONIN I HIGH SENSITIVITY 28.5 pg/mL (<=60.3)
[2024-05-21 17:44] LABS: ANION GAP 18.9 mmol/L (5.0-14.0)
[2024-05-21 17:45] LABS: GLUCOSE RANDOM 470 mg/dL (74-106)
[2024-05-21 18:04] LABS: CORONAVIRUS COVID-19 NAA NEGATIVE (NEGATIVE); INFLUENZA A NAA NEGATIVE (NEGATIVE); INFLUENZA B NAA NEGATIVE (NEGATIVE); RESPIRATORY SYNCYTIAL VIR NAA NEGATIVE (NEGATIVE)
[2024-05-21] MEDS: Insulin Regular in 0.9 % NACL 100 ML IV SCH (19:08)
[2024-05-21] MEDS ORDERED: Sennosides/Docusate Sodium 50-8.6 MG Tab PO PRN (19:55)
[2024-05-21] MEDS ORDERED: Ondansetron 4 MG Tab.DIS PO PRN (19:55)
[2024-05-21] MEDS ORDERED: Magnesium Hydroxide 400 MG/5 ML Susp 30 ML Cup PO PRN (19:55)
[2024-05-21] MEDS ORDERED: Ondansetron 4 MG/2 ML SDV IV PRN (19:55)
[2024-05-21] MEDS ORDERED: Acetaminophen 325 MG Tab PO PRN (19:55)
[2024-05-21] MEDS: Pantoprazole 40 MG Vial IV ONE (20:28)
[2024-05-21] MEDS: NS + KCl 20mEq/L 1,000 ML IV SCH (21:00)
[2024-05-21 23:31] LABS: ANION GAP 9.9 mmol/L (5.0-14.0); CALCIUM 7.9 mg/dL (8.5-10.1); CREATININE 2.1 mg/dL (0.8-1.3); EST CRCL DRUG DOSING (CG) 22.24 mL/min; POTASSIUM,K 4.1 mmol/L (3.6-5.2)
[2024-05-22] MEDS: Insulin Glargine,Human Rec. Analog 100 Units/ML 3 ML Pen SUBCUT ONE (00:01)
[2024-05-22 05:41] LABS: HEMOGLOBIN 11.8 g/dL (12.9-16.9); MEAN CORPUSCULAR HEMOGLOBIN 29.1 pg (31.6-35.5); MEAN CORPUSCULAR HGB CONC 34.7 g/dL (31.6-35.5); MEAN CORPUSCULAR VOLUME 83.7 fL (81.4-99.0); RED BLOOD CELL COUNT 4.06 M/uL (4.14-5.76)
[2024-05-22 05:53] LABS: CALCIUM 7.9 mg/dL (8.5-10.1); CREATININE 1.6 mg/dL (0.8-1.3); EST CRCL DRUG DOSING (CG) 29.2 mL/min
[2024-05-22] MEDS: Albuterol 0.083% 2.5 MG/3 ML Neb Soln NEB PRN (07:54)
[2024-05-22] MEDS: Amylase/Lipase/Protease 12,000 Unit Cap.CR PO SCH (07:56)
[2024-05-22] MEDS: NS + KCl 20mEq/L 1,000 ML IV SCH (07:58)
[2024-05-22] MEDS: Insulin Glargine,Human Rec. Analog 100 Units/ML 3 ML Pen SUBCUT SCH (11:50)
[2024-05-22] MEDS: Insulin Lispro 100 Unit/ML 3 ML KwikPen SUBCUT SCH (11:52)
[2024-05-22 14:45] VITALS: BP 114/58; PULSE 101
== END 2024-05-22 15:56 | disposition home or self-care (01) | DRG 638 ==
LOC: JP.ED 16:29 → JP.ICU 18:39
PROVIDERS: ADMIT Internal Medicine; ATTEND Internal Medicine
DX: E10.10 Type 1 diabetes mellitus with ketoacidosis without coma (principal); E87.3 Alkalosis; N17.9 Acute kidney failure, unspecified; E10.65 Type 1 diabetes mellitus with hyperglycemia; F41.9 Anxiety disorder, unspecified; F32.A Depression, unspecified; M19.90 Unspecified osteoarthritis, unspecified site; G89.29 Other chronic pain; J43.9 Emphysema, unspecified; M54.9 Dorsalgia, unspecified; I25.2 Old myocardial infarction; F10.20 Alcohol dependence, uncomplicated; I95.9 Hypotension, unspecified; K21.9 Gastro-esophageal reflux disease without esophagitis; I25.10 Atherosclerotic heart disease of native coronary artery without angina pectoris; E78.00 Pure hypercholesterolemia, unspecified; J44.9 Chronic obstructive pulmonary disease, unspecified; Z88.5 Allergy status to narcotic agent; Z88.1 Allergy status to other antibiotic agents; Z79.4 Long term (current) use of insulin; Z86.16 Personal history of COVID-19; Z98.49 Cataract extraction status, unspecified eye; Z98.890 Other specified postprocedural states; Z79.899 Other long term (current) drug therapy
CPT/HCPCS: 0241U; 36415; 36600; 71045; 71045-26; 80048; 80053; 80307; 82803; 82947; 83605; 83690; 84145; 84484; 85025; 85027; 93005; 96360; 96361; 99222; 99238; 99285-25; C9113; J1815; J1815-GY; J3480; J7030

== ENCOUNTER → 2024-07-17 | Day surgery (SDC) | payer MEDICARE, OTHER ==
[~2024-07-17] MED LIST: Sodium Chloride 0.9% 1,000 ML IV SCH
[2024-07-17 06:53] VITALS: BP 140/77; PULSE 67
== END ==
LOC: JP.SDS 06:38
PROVIDERS: ATTEND Surgery
DX: R13.10 Dysphagia, unspecified (principal); Z53.8 Procedure and treatment not carried out for other reasons; J44.9 Chronic obstructive pulmonary disease, unspecified; E11.9 Type 2 diabetes mellitus without complications

== ENCOUNTER 2024-07-18 08:06 | Day surgery (SDC) | payer OTHER ==
[~2024-07-18 08:06] MED LIST changes: +Propofol 200 MG/20 ML SDV ONE; -Sodium Chloride 0.9% 1,000 ML IV SCH; +fentaNYL 50 MCG/ML SDV ONE
[2024-07-18] MEDS: Sodium Chloride 0.9% 1,000 ML IV SCH (08:51)
[2024-07-18 10:30] VITALS: BP 121/64; PULSE 66
== END 2024-07-18 10:57 | disposition home or self-care (01) ==
LOC: JP.SDS 08:06
PROVIDERS: ATTEND Surgery
DX: K22.10 Ulcer of esophagus without bleeding (principal); R13.10 Dysphagia, unspecified; J44.9 Chronic obstructive pulmonary disease, unspecified
CPT/HCPCS: 00731; 43239; 43249; 88305; 88313; 88341; 88342; C1726; J2704; J3010; J7030

== ENCOUNTER 2024-09-10 08:08 | Day surgery (SDC) | payer OTHER ==
[2024-09-10] MEDS ORDERED: Propofol 200 MG/20 ML SDV ONE (08:23)
[2024-09-10] MEDS ORDERED: fentaNYL 50 MCG/ML SDV ONE (08:23)
[2024-09-10] MEDS: Lactated Ringers 1,000 ML IV SCH (08:49)
[2024-09-10 11:00] VITALS: PULSE 70
[2024-09-10 11:01] VITALS: BP 116/53
== END 2024-09-10 11:23 | disposition home or self-care (01) ==
LOC: JP.SDS 08:08
PROVIDERS: ATTEND Surgery
DX: R13.10 Dysphagia, unspecified (principal); J44.9 Chronic obstructive pulmonary disease, unspecified; E11.9 Type 2 diabetes mellitus without complications
CPT/HCPCS: 00731; 43249; 82947; C1726; J2704; J3010; J7120

== ENCOUNTER 2024-09-27 18:36 | Emergency (ER) | payer OTHER ==
[2024-09-27] MEDS ORDERED: Sodium Chloride 0.9% 10 ML Syringe FLUSH PRN (18:37)
[2024-09-27 18:53] LABS: BASE EXCESS ARTERIAL -9.6 mm/L; BICARBONATE,ARTERIAL 13.4 mmol/L (22.0-26.0); CARBOXYHEMOGLOBIN 2.4 % (0.0-1.6); METHEMOGLOBIN 0.9 %; O2 SATURATION ARTERIAL 98.2 % (95.0-98.0); PCO2 ARTERIAL 22.5 mmHg (35.0-42.0); TOTAL HEMOGLOBIN 12.6 g/dL (13.5-18.0)
[2024-09-27 19:14] LABS: HEMATOCRIT 41.6 % (38.4-49.7); HEMOGLOBIN 13.4 g/dL (12.9-16.9); MEAN CORPUSCULAR HEMOGLOBIN 30.2 pg (31.6-35.5); MEAN CORPUSCULAR HGB CONC 32.2 g/dL (31.6-35.5); MEAN CORPUSCULAR VOLUME 93.9 fL (81.4-99.0); PLATELET COUNT,PLT 537 K/uL (130-375); RED BLOOD CELL COUNT 4.43 M/uL (4.14-5.76); WHITE BLOOD CELL COUNT,WBC 21.6 K/uL (3.2-11.0)
[2024-09-27] MEDS: Sodium Chloride 0.9% 1,000 ML IV SCH ×2 (19:19→20:34)
[2024-09-27 19:41] LABS: ALANINE AMINOTRANSFERASE,ALT 43 U/L (12-78); ALBUMIN 3.4 g/dL (3.4-5.0); ALKALINE PHOSPHATASE 186 U/L (46-116); ASPARTATE AMNIOTRANSFERASE,AST 16 U/L (15-37); BILIRUBIN TOTAL 0.6 mg/dL (0.2-1.0); BLOOD UREA NITROGEN,BUN 35 mg/dL (7-18); CALCIUM 9.4 mg/dL (8.5-10.1); CARBON DIOXIDE,CO2 16 mmol/L (21-32); CHLORIDE,CL 87 mmol/L (100-108); CREATININE 2.3 mg/dL (0.8-1.3); ESTIMATED GFR 29 mL/min (>60); MAGNESIUM 2.2 mg/dL (1.8-2.4); PHOSPHORUS 7.4 mg/dL (2.5-4.9); POTASSIUM,K 5.1 mmol/L (3.6-5.2); PROTEIN TOTAL,TP 6.8 g/dL (6.4-8.2); SODIUM,NA 132 mmol/L (140-148)
[2024-09-27] MEDS ORDERED: Lidocaine 1% 2 ML ONE (19:41)
[2024-09-27 19:52] LABS: ANION GAP 34.1 mmol/L (5.0-14.0)
[2024-09-27 19:54] LABS: GLUCOSE RANDOM 813 mg/dL (74-106)
[2024-09-27 20:00] LABS: BAND ABSOLUTE MAN 0.22 K/uL; BAND PERCENT MAN 1 % (5-11); LYMPHOCYTES ABSOLUTE MAN 0.43 K/uL (0.8-3.3); LYMPHOCYTES PERCENT MAN 2 % (24-44); MONOCYTES ABSOLUTE MAN 1.08 K/uL (0.20-0.90); MONOCYTES PERCENT MAN 5 % (2-6); NEUTROPHILS ABSOLUTE MAN 19.87 K/uL (1.0-7.6); SEG NEUTROPHILS PERCENT MAN 92 % (36-66)
[2024-09-27] MEDS: Piperacillin/Tazobactam 4.5 GM in Sodium Chloride 0.9% 100 ML IV ONE (20:40)
[2024-09-27 21:55] LABS: APPEARANCE,URINE CLEAR (CLEAR); BILIRUBIN,URINE NEGATIVE (NEGATIVE); COLOR,URINE YELLOW (YELLOW); GLUCOSE,URINE 500 mg/dL (NEGATIVE); KETONES,URINE 80 mg/dL (NEGATIVE); LEUKOCYTE ESTERASE,URINE NEGATIVE (NEGATIVE); NITRITE,URINE NEGATIVE (NEGATIVE); OCCULT BLOOD,URINE NEGATIVE (NEGATIVE); PROTEIN,URINE NEGATIVE (NEGATIVE); UROBILINOGEN,URINE 0.2 EU/dL (0.2-1.0)
[2024-09-27 21:59] LABS: LACTIC ACID 8.1 mmol/L (0.4-2.0)
[2024-09-27 22:06] LABS: CORONAVIRUS COVID-19 NAA NEGATIVE (NEGATIVE); INFLUENZA A NAA NEGATIVE (NEGATIVE); INFLUENZA B NAA NEGATIVE (NEGATIVE); RESPIRATORY SYNCYTIAL VIR NAA NEGATIVE (NEGATIVE)
[2024-09-27 22:08] LABS: AMORPHOUS SEDIMENT,URINE NOT SEEN; BACTERIA,URINE NOT SEEN; EPITHELIAL CELLS,URINE RARE; MUCUS,URINE NOT SEEN; RBC,URINE NOT SEEN (0-5); WBC,URINE 0-5 (0-5)
[2024-09-27 22:25] LABS: CALCIUM 8.9 mg/dL (8.5-10.1); CREATININE 1.9 mg/dL (0.8-1.3); EST CRCL DRUG DOSING (CG) 25.07 mL/min; POTASSIUM,K 4.4 mmol/L (3.6-5.2)
[2024-09-27 22:26] LABS: ANION GAP 24.4 mmol/L (5.0-14.0)
[2024-09-27 22:31] VITALS: BP 116/80; PULSE 94
== END 2024-09-27 22:50 ==
LOC: JP.ED 18:36
DX: E10.10 Type 1 diabetes mellitus with ketoacidosis without coma (principal); I25.10 Atherosclerotic heart disease of native coronary artery without angina pectoris; I25.2 Old myocardial infarction; J44.9 Chronic obstructive pulmonary disease, unspecified; Z79.4 Long term (current) use of insulin; Z79.899 Other long term (current) drug therapy; Z88.1 Allergy status to other antibiotic agents; Z88.5 Allergy status to narcotic agent
CPT/HCPCS: 0241U; 36415; 36600; 71045; 74176; 80048; 80053; 81001; 82009; 82803; 82947; 83605; 83735; 84100; 84145; 84484; 85025; 86140; 87040; 93005; 96361; 96365; 99285; J1815; J2543; J3490; J7030; 36410; 93010

== ENCOUNTER 2024-11-14 06:28 | Day surgery (SDC) | payer OTHER ==
[~2024-11-14 06:28] MED LIST changes: +Lactated Ringers 1,000 ML IV SCH; +MVI, Adult with Vitamin K 10 ML, Thiamine 200 MG, Chromium/Copper/Mang/Selen/Zn 1 ML in... IV ONE; -Propofol 200 MG/20 ML SDV ONE; -fentaNYL 50 MCG/ML SDV ONE
[2024-11-14] MEDS: Lactated Ringers 1,000 ML IV SCH (06:47)
[2024-11-14] MEDS ORDERED: fentaNYL 50 MCG/ML SDV ONE (07:09)
[2024-11-14] MEDS ORDERED: Propofol 200 MG/20 ML SDV ONE (07:09)
[2024-11-14] MEDS ORDERED: Dexamethasone 4 MG/ML SDV ONE (07:55)
[2024-11-14] MEDS: MVI, Adult with Vitamin K 10 ML, Thiamine 200 MG, Zinc/Copper/Manganese/Selenium 1 ML i... IV ONE (09:30)
[2024-11-14 12:27] VITALS: BP 149/74; PULSE 69
== END 2024-11-14 10:15 | disposition home or self-care (01) ==
LOC: JP.SDS 06:28
PROVIDERS: ATTEND Surgery
DX: R13.10 Dysphagia, unspecified (principal); K20.90 Esophagitis, unspecified without bleeding; J44.9 Chronic obstructive pulmonary disease, unspecified; E10.9 Type 1 diabetes mellitus without complications
CPT/HCPCS: 00731-QZ; 88305; 88312; 88341; 88342; C1726; J1100; J2704; J3010; J3411; J3490; J7120

== ENCOUNTER 2025-02-11 23:47 | Emergency (ER) | payer OTHER ==
[2025-02-12 00:19] LABS: BASOPHILS ABSOLUTE AUTO 0.04 K/uL (0.00-0.10); BASOPHILS PERCENT AUTO 0.6 % (0.1-1.3); EOSINOPHILS PERCENT AUTO 0.2 % (0.0-5.4); HEMATOCRIT 34.3 % (38.4-49.7); HEMOGLOBIN 11.7 g/dL (12.9-16.9); IMMATURE GRAN ABSOLUTE AUTO 0.03 K/uL (0.00-0.23); IMMATURE GRAN PERCENT AUTO 0.5 % (0.0-0.7); LYMPHOCYTES ABSOLUTE AUTO 1.38 K/uL (0.8-3.3); LYMPHOCYTES PERCENT AUTO 21.4 % (11.4-47.7); MEAN CORPUSCULAR HEMOGLOBIN 30.3 pg (31.6-35.5); MEAN CORPUSCULAR HGB CONC 34.1 g/dL (31.6-35.5); MEAN CORPUSCULAR VOLUME 88.9 fL (81.4-99.0); MONOCYTES PERCENT AUTO 6.2 % (3.3-12.6); NEUTROPHILS ABSOLUTE AUTO 4.59 K/uL (1.0-7.6); NEUTROPHILS PERCENT AUTO 71.1 % (40.0-78.1); PLATELET COUNT,PLT 200 K/uL (130-375); RED BLOOD CELL COUNT 3.86 M/uL (4.14-5.76); WHITE BLOOD CELL COUNT,WBC 6.5 K/uL (3.2-11.0)
[2025-02-12 00:30] LABS: BASE EXCESS VENOUS 3.6 mm/L; BICARBONATE,VENOUS 28.6 mmol/L; CARBOXYHEMOGLOBIN 2.9 % (0.0-1.6); METHEMOGLOBIN 0.7 %; O2 SATURATION VENOUS 71.8; OXYHEMOGLOBIN 69.2 %; PCO2 VENOUS 47.5 mm/Hg; PH,VENOUS 7.397 (7.350-7.450); PO2 VENOUS 39.4 mm/Hg; TOTAL HEMOGLOBIN 12.1 g/dL (13.5-18.0)
[2025-02-12 00:32] LABS: EOSINOPHILS ABSOLUTE AUTO 0.01 K/uL (0.00-0.40)
[2025-02-12 01:02] LABS: ALANINE AMINOTRANSFERASE,ALT 77 U/L (12-78); ALBUMIN 2.8 g/dL (3.4-5.0); ALKALINE PHOSPHATASE 142 U/L (46-116); ASPARTATE AMNIOTRANSFERASE,AST 79 U/L (15-37); BILIRUBIN TOTAL 0.4 mg/dL (0.2-1.0); BLOOD UREA NITROGEN,BUN 11 mg/dL (7-18); CALCIUM 8.5 mg/dL (8.5-10.1); CARBON DIOXIDE,CO2 29 mmol/L (21-32); CHLORIDE,CL 98 mmol/L (100-108); CREATININE 0.9 mg/dL (0.8-1.3); EST CRCL DRUG DOSING (CG) 45.86 mL/min; ESTIMATED GFR 88 mL/min (>60); GLUCOSE RANDOM 356 mg/dL (74-106); POTASSIUM,K 3.9 mmol/L (3.6-5.2); PROTEIN TOTAL,TP 5.6 g/dL (6.4-8.2); SODIUM,NA 135 mmol/L (140-148); TROPONIN I HIGH SENSITIVITY 7.5 pg/mL (<=60.3)
[2025-02-12 01:03] LABS: LACTIC ACID 2.2 mmol/L (0.4-2.0)
[2025-02-12 01:04] LABS: ANION GAP 11.9 mmol/L (5.0-14.0); C-REACTIVE PROTEIN < 0.50 mg/dL (<0.50)
[2025-02-12] MEDS: Sodium Chloride 0.9% 1,000 ML IV SCH ×2 (01:24→04:55)
[2025-02-12 02:14] LABS: APPEARANCE,URINE CLEAR (CLEAR); BILIRUBIN,URINE NEGATIVE (NEGATIVE); COLOR,URINE YELLOW (YELLOW); GLUCOSE,URINE 500 mg/dL (NEGATIVE); KETONES,URINE 15 mg/dL (NEGATIVE); LEUKOCYTE ESTERASE,URINE NEGATIVE (NEGATIVE); NITRITE,URINE NEGATIVE (NEGATIVE); OCCULT BLOOD,URINE NEGATIVE (NEGATIVE); PROTEIN,URINE NEGATIVE (NEGATIVE); UROBILINOGEN,URINE 0.2 EU/dL (0.2-1.0)
[2025-02-12 02:31] LABS: AMORPHOUS SEDIMENT,URINE FEW; BACTERIA,URINE FEW; EPITHELIAL CELLS,URINE FEW; MUCUS,URINE NOT SEEN; RBC,URINE 0-5 (0-5); WBC,URINE 0-5 (0-5)
[2025-02-12] MEDS: Sodium Chloride 0.9% 100 ML IV SCH (03:11)
[2025-02-12] MEDS: Iopamidol 612 MG/ML 100 ML Bottle IV SCH (03:11)
[2025-02-12] MEDS: Sodium Chloride 0.9% 10 ML Syringe FLUSH PRN (03:11)
[2025-02-12] MEDS ORDERED: Sodium Chloride 0.9% 1,000 ML IV SCH (04:45)
[2025-02-12 06:28] VITALS: BP 114/62; PULSE 75
== END 2025-02-12 07:23 | disposition home or self-care (01) ==
LOC: JP.ED 23:47
DX: S02.2XXA Fracture of nasal bones, initial encounter for closed fracture (principal); S22.43XA Multiple fractures of ribs, bilateral, initial encounter for closed fracture; E10.65 Type 1 diabetes mellitus with hyperglycemia; I25.10 Atherosclerotic heart disease of native coronary artery without angina pectoris; I25.2 Old myocardial infarction; J44.9 Chronic obstructive pulmonary disease, unspecified; Z88.5 Allergy status to narcotic agent; Z88.8 Allergy status to other drugs, medicaments and biological substances; Z79.4 Long term (current) use of insulin; Z79.899 Other long term (current) drug therapy; W19.XXXA Unspecified fall, initial encounter
CPT/HCPCS: 36415; 70450; 70486; 71260; 72125; 74177; 76377; 80053; 80307; 81001; 82009; 82803; 82947; 83605; 83690; 84484; 85025; 86140; 93005; 93010; 96360; 96361; 99284; 99285; J7030; Q9967

== ENCOUNTER 2025-02-23 12:17 | Inpatient (IN) | payer OTHER, MEDICARE ==
[2025-02-23] MEDS ORDERED: Glucagon,Human Recombinant 1 MG Vial IM PRN ×3 (12:23→14:59)
[2025-02-23] MEDS ORDERED: 50% Dextrose in Water 50 ML Syringe IVPUSH PRN ×2 (12:23→13:09)
[2025-02-23] MEDS: Insulin Regular, Human 100 Units/ML 10 ML Vial IV ONE (12:43)
[2025-02-23] MEDS: Sodium Chloride 0.9% 1,000 ML IV SCH ×2 (12:46→15:12)
[2025-02-23] MEDS: Sodium Chloride 0.9% 10 ML Syringe FLUSH PRN (12:48)
[2025-02-23 12:57] LABS: BASE EXCESS ARTERIAL -27.3 mm/L; CARBOXYHEMOGLOBIN 1.4 % (0.0-1.6); METHEMOGLOBIN 1.2 %; O2 SATURATION ARTERIAL 98.4 % (95.0-98.0); OXYHEMOGLOBIN 95.8 %; TOTAL HEMOGLOBIN 9.9 g/dL (13.5-18.0)
[2025-02-23 13:00] LABS: BICARBONATE,ARTERIAL 2.6 mmol/L (22.0-26.0); PCO2 ARTERIAL 9.9 mmHg (35.0-42.0)
[2025-02-23 13:07] LABS: ALANINE AMINOTRANSFERASE,ALT 51 U/L (12-78); ALBUMIN 2.5 g/dL (3.4-5.0); ALKALINE PHOSPHATASE 132 U/L (46-116); ASPARTATE AMNIOTRANSFERASE,AST 21 U/L (15-37); BILIRUBIN TOTAL 0.7 mg/dL (0.2-1.0); BLOOD UREA NITROGEN,BUN 42 mg/dL (7-18); CALCIUM 8.3 mg/dL (8.5-10.1); CHLORIDE,CL 96 mmol/L (100-108); EST CRCL DRUG DOSING (CG) 29.93 mL/min; ESTIMATED GFR 34 mL/min (>60); MAGNESIUM 2.3 mg/dL (1.8-2.4); PROTEIN TOTAL,TP 5.1 g/dL (6.4-8.2); SODIUM,NA 136 mmol/L (140-148)
[2025-02-23 13:12] LABS: ANION GAP 40.4 mmol/L (5.0-14.0); BASOPHILS ABSOLUTE AUTO 0.03 K/uL (0.00-0.10); BASOPHILS PERCENT AUTO 0.2 % (0.1-1.3); CARBON DIOXIDE,CO2 6 mmol/L (21-32); EOSINOPHILS PERCENT AUTO 0.1 % (0.0-5.4); HEMATOCRIT 33.8 % (38.4-49.7); HEMOGLOBIN 9.9 g/dL (12.9-16.9); IMMATURE GRAN ABSOLUTE AUTO 0.16 K/uL (0.00-0.23); IMMATURE GRAN PERCENT AUTO 1.1 % (0.0-0.7); LYMPHOCYTES ABSOLUTE AUTO 0.36 K/uL (0.8-3.3); LYMPHOCYTES PERCENT AUTO 2.5 % (11.4-47.7); MEAN CORPUSCULAR HGB CONC 29.3 g/dL (31.6-35.5); MONOCYTES ABSOLUTE AUTO 0.56 K/uL (0.20-0.90); MONOCYTES PERCENT AUTO 3.8 % (3.3-12.6); NEUTROPHILS ABSOLUTE AUTO 13.49 K/uL (1.0-7.6); NEUTROPHILS PERCENT AUTO 92.3 % (40.0-78.1); PLATELET COUNT,PLT 211 K/uL (130-375); POTASSIUM,K 6.4 mmol/L (3.6-5.2); RED BLOOD CELL COUNT 3.19 M/uL (4.14-5.76); WHITE BLOOD CELL COUNT,WBC 14.6 K/uL (3.2-11.0)
[2025-02-23 13:15] LABS: GLUCOSE RANDOM 895 mg/dL (74-106)
[2025-02-23 13:17] LABS: EOSINOPHILS ABSOLUTE AUTO 0.01 K/uL (0.00-0.40)
[2025-02-23] MEDS: Insulin Regular, Human 100 Units/ML 10 ML Vial IVPUSH ONE (13:18)
[2025-02-23] MEDS: Sodium Bicarbonate 8.4% 50 MEQ/50 ML Syringe IVPUSH ONE (13:20)
[2025-02-23 13:39] LABS: APPEARANCE,URINE CLEAR (CLEAR); BILIRUBIN,URINE NEGATIVE (NEGATIVE); COLOR,URINE YELLOW (YELLOW); GLUCOSE,URINE 500 mg/dL (NEGATIVE); KETONES,URINE 80 mg/dL (NEGATIVE); LEUKOCYTE ESTERASE,URINE NEGATIVE (NEGATIVE); NITRITE,URINE NEGATIVE (NEGATIVE); OCCULT BLOOD,URINE SMALL (NEGATIVE); PH,URINE 5.5 (5.0-8.0); PROTEIN,URINE TRACE mg/dL (NEGATIVE); UROBILINOGEN,URINE 0.2 EU/dL (0.2-1.0)
[2025-02-23 13:49] LABS: AMORPHOUS SEDIMENT,URINE NOT SEEN; BACTERIA,URINE RARE; EPITHELIAL CELLS,URINE RARE; MUCUS,URINE FEW; RBC,URINE 0-5 (0-5); WBC,URINE 0-5 (0-5)
[2025-02-23] MEDS: Sodium Chloride 0.9% 1,000 ML IV ONE (13:53)
[2025-02-23] MEDS: Norepinephrine Bit/D5W Premix 4 MG in Premix Bag 1 BAG IV SCH (14:23)
[2025-02-23] MEDS ORDERED: Magnesium Hydroxide 400 MG/5 ML Susp 30 ML Cup PO PRN (14:54)
[2025-02-23] MEDS ORDERED: LORazepam 2 MG/ML SDV IVPUSH PRN (14:54)
[2025-02-23] MEDS ORDERED: Morphine 2 MG/ML SYRINGE IVPUSH PRN (14:54)
[2025-02-23] MEDS: Insulin Regular in 0.9 % NACL 100 ML IV SCH (15:12)
[2025-02-23] MEDS: Enoxaparin 40 MG/0.4 ML Syringe SUBCUT SCH (15:34)
[2025-02-23 15:49] LABS: CREATININE 1.9 mg/dL (0.8-1.3); EST CRCL DRUG DOSING (CG) 22.52 mL/min; MAGNESIUM 2.1 mg/dL (1.8-2.4); PHOSPHORUS 5.9 mg/dL (2.5-4.9)
[2025-02-23 19:48] LABS: CREATININE 1.7 mg/dL (0.8-1.3); EST CRCL DRUG DOSING (CG) 25.17 mL/min; POTASSIUM,K 3.7 mmol/L (3.6-5.2)
[2025-02-23 19:49] LABS: ANION GAP 33.7 mmol/L (5.0-14.0)
[2025-02-23 21:32] LABS: MAGNESIUM 1.9 mg/dL (1.8-2.4); PHOSPHORUS 3.1 mg/dL (2.5-4.9); POTASSIUM,K 3.5 mmol/L (3.6-5.2)
[2025-02-23 23:25] LABS: CALCIUM 8.1 mg/dL (8.5-10.1); CREATININE 1.6 mg/dL (0.8-1.3); EST CRCL DRUG DOSING (CG) 26.74 mL/min; POTASSIUM,K 3.3 mmol/L (3.6-5.2)
[2025-02-23 23:27] LABS: ANION GAP 26.3 mmol/L (5.0-14.0)
[2025-02-24 03:26] LABS: ANION GAP 19.2 mmol/L (5.0-14.0); CALCIUM 8.1 mg/dL (8.5-10.1); CREATININE 1.6 mg/dL (0.8-1.3); EST CRCL DRUG DOSING (CG) 26.74 mL/min; MAGNESIUM 1.6 mg/dL (1.8-2.4); PHOSPHORUS 2.2 mg/dL (2.5-4.9); POTASSIUM,K 3.2 mmol/L (3.6-5.2)
[2025-02-24 05:48] LABS: BASOPHILS PERCENT AUTO 0.1 % (0.1-1.3); HEMATOCRIT 31.3 % (38.4-49.7); HEMOGLOBIN 10.6 g/dL (12.9-16.9); IMMATURE GRAN ABSOLUTE AUTO 0.09 K/uL (0.00-0.23); IMMATURE GRAN PERCENT AUTO 0.6 % (0.0-0.7); LYMPHOCYTES ABSOLUTE AUTO 0.69 K/uL (0.8-3.3); LYMPHOCYTES PERCENT AUTO 4.7 % (11.4-47.7); MEAN CORPUSCULAR HEMOGLOBIN 30.7 pg (31.6-35.5); MEAN CORPUSCULAR HGB CONC 33.9 g/dL (31.6-35.5); MEAN CORPUSCULAR VOLUME 90.7 fL (81.4-99.0); MONOCYTES ABSOLUTE AUTO 1.26 K/uL (0.20-0.90); MONOCYTES PERCENT AUTO 8.7 % (3.3-12.6); NEUTROPHILS ABSOLUTE AUTO 12.48 K/uL (1.0-7.6); NEUTROPHILS PERCENT AUTO 85.9 % (40.0-78.1); PLATELET COUNT,PLT 201 K/uL (130-375); RED BLOOD CELL COUNT 3.45 M/uL (4.14-5.76); WHITE BLOOD CELL COUNT,WBC 14.5 K/uL (3.2-11.0)
[2025-02-24 05:54] LABS: BASOPHILS ABSOLUTE AUTO 0.02 K/uL (0.00-0.10)
[2025-02-24 06:21] LABS: HEMOGLOBIN A1C > 14.0 % (4.5-6.2)
[2025-02-24] MEDS ORDERED: Insulin Regular in 0.9 % NACL 100 ML IV SCH (08:15)
[2025-02-24] MEDS ORDERED: Glucagon,Human Recombinant 1 MG Vial IM PRN (08:15)
[2025-02-24 08:19] LABS: CALCIUM 7.9 mg/dL (8.5-10.1); CREATININE 1.4 mg/dL (0.8-1.3); EST CRCL DRUG DOSING (CG) 30.56 mL/min; POTASSIUM,K 3.3 mmol/L (3.6-5.2)
[2025-02-24 08:20] LABS: ANION GAP 16.3 mmol/L (5.0-14.0)
[2025-02-24] MEDS: 50% Dextrose in Water 50 ML Syringe IVPUSH PRN (08:31)
[2025-02-24] MEDS: Potassium Chloride 10 MEQ in Premix Bag 1 BAG IV SCH (08:35)
[2025-02-24] MEDS: Dextrose 5%-0.9% NaCl with KCl 1,000 ML IV SCH (08:35)
[2025-02-24 11:50] LABS: CALCIUM 7.7 mg/dL (8.5-10.1); CREATININE 1.3 mg/dL (0.8-1.3); EST CRCL DRUG DOSING (CG) 32.91 mL/min; POTASSIUM,K 3.5 mmol/L (3.6-5.2)
[2025-02-24 11:54] LABS: ANION GAP 13.5 mmol/L (5.0-14.0)
[2025-02-24] MEDS: Magnesium Sulf/Wat 2 GM/50 mL 2 GM in Premix Bag 1 BAG IV SCH (12:50)
[2025-02-24 17:31] LABS: ANION GAP 12.1 mmol/L (5.0-14.0); CALCIUM 7.9 mg/dL (8.5-10.1); CREATININE 1.2 mg/dL (0.8-1.3); EST CRCL DRUG DOSING (CG) 35.66 mL/min; POTASSIUM,K 4.1 mmol/L (3.6-5.2)
[2025-02-25] MEDS ORDERED: Dextrose 5%-0.9% NaCl with KCl 1,000 ML IV SCH (01:20)
[2025-02-25] MEDS: Insulin Lispro 100 Unit/ML 3 ML KwikPen SUBCUT ONE (03:22)
[2025-02-25] MEDS: Insulin Lispro 100 Unit/ML 3 ML KwikPen SUBCUT SCH ×2 (03:35→13:01)
[2025-02-25 05:59] LABS: HEMATOCRIT 30.3 % (38.4-49.7); HEMOGLOBIN 10.3 g/dL (12.9-16.9); MEAN CORPUSCULAR HEMOGLOBIN 30.5 pg (31.6-35.5); MEAN CORPUSCULAR VOLUME 89.6 fL (81.4-99.0); RED BLOOD CELL COUNT 3.38 M/uL (4.14-5.76); WHITE BLOOD CELL COUNT,WBC 11.1 K/uL (3.2-11.0)
[2025-02-25 06:18] LABS: CALCIUM 7.9 mg/dL (8.5-10.1); EST CRCL DRUG DOSING (CG) 42.79 mL/min; POTASSIUM,K 4.2 mmol/L (3.6-5.2)
[2025-02-25 06:26] LABS: ANION GAP 12.2 mmol/L (5.0-14.0)
[2025-02-25] MEDS: Insulin Glargine,Human Rec. Analog 100 Units/ML 3 ML Pen SUBCUT SCH (13:00)
[2025-02-25] MEDS: Insulin Lispro 100 Units/ML 3 ML Vial SUBCUT SCH (16:35)
[2025-02-26 05:47] LABS: HEMATOCRIT 30.3 % (38.4-49.7); HEMOGLOBIN 10.2 g/dL (12.9-16.9); MEAN CORPUSCULAR HEMOGLOBIN 30.8 pg (31.6-35.5); MEAN CORPUSCULAR HGB CONC 33.7 g/dL (31.6-35.5); MEAN CORPUSCULAR VOLUME 91.5 fL (81.4-99.0); RED BLOOD CELL COUNT 3.31 M/uL (4.14-5.76); WHITE BLOOD CELL COUNT,WBC 6.5 K/uL (3.2-11.0)
[2025-02-26 06:05] LABS: CALCIUM 8.2 mg/dL (8.5-10.1); CREATININE 0.8 mg/dL (0.8-1.3); EST CRCL DRUG DOSING (CG) 53.48 mL/min; POTASSIUM,K 3.9 mmol/L (3.6-5.2)
[2025-02-26 06:07] LABS: ANION GAP 11.9 mmol/L (5.0-14.0)
[2025-02-26] MEDS: 50% Dextrose in Water 50 ML Syringe IVPUSH PRN (06:39)
[2025-02-26] MEDS: Insulin Glargine,Human Rec. Analog 100 Units/ML 3 ML Pen SUBCUT SCH (08:54)
[2025-02-26] MEDS: Acetaminophen 325 MG Tab PO PRN (21:52)
[2025-02-27 06:16] LABS: CALCIUM 8.2 mg/dL (8.5-10.1); CREATININE 0.7 mg/dL (0.8-1.3); EST CRCL DRUG DOSING (CG) 61.13 mL/min; POTASSIUM,K 3.6 mmol/L (3.6-5.2)
[2025-02-27 06:17] LABS: ANION GAP 11.6 mmol/L (5.0-14.0)
[2025-02-27] MEDS: Potassium Chloride 20 MEQ Tab.ER PO ONE (08:14)
[2025-02-27] MEDS: Insulin Lispro 100 Unit/ML 3 ML KwikPen SUBCUT SCH (11:48)
[2025-02-28] MEDS ORDERED: Glucagon,Human Recombinant 1 MG Vial IM PRN (08:05)
[2025-02-28] MEDS ORDERED: 50% Dextrose in Water 50 ML Syringe IVPUSH PRN (08:05)
[2025-02-28] MEDS: Insulin Glargine,Human Rec. Analog 100 Units/ML 3 ML Pen SUBCUT SCH (08:40)
[2025-02-28] MEDS: Ondansetron 4 MG/2 ML SDV IV PRN (19:56)
[2025-02-28] MEDS: Pantoprazole 40 MG Tab.CR PO SCH (20:48)
[2025-03-01] MEDS: Sodium Chloride 0.9% 1,000 ML IV SCH (11:46)
[2025-03-01] MEDS: Calcium Carbonate 500 MG Tab.Chew PO ONE (19:33)
[2025-03-01] MEDS: Sennosides/Docusate Sodium 50-8.6 MG Tab PO PRN (20:15)
[2025-03-02] MEDS: Insulin Lispro 100 Unit/ML 3 ML KwikPen SUBCUT SCH (16:54)
[2025-03-03] MEDS: Insulin Glargine,Human Rec. Analog 100 Units/ML 3 ML Pen SUBCUT SCH (09:37)
[2025-03-03 11:27] VITALS: BP 104/57; PULSE 97
== END 2025-03-03 13:06 | disposition hospice, home (50) | DRG 638 ==
LOC: JP.ED 12:17 → EEVIPCON 14:30 → JP.ICU 14:30 → JP.MS 03-01 10:06
PROVIDERS: ADMIT Hospitalist; ATTEND Internal Medicine
DX: E10.11 Type 1 diabetes mellitus with ketoacidosis with coma (principal); F01.C3 Vascular dementia, severe, with mood disturbance; N17.9 Acute kidney failure, unspecified; Z66 Do not resuscitate; F10.20 Alcohol dependence, uncomplicated; I95.9 Hypotension, unspecified; E87.6 Hypokalemia; H91.90 Unspecified hearing loss, unspecified ear; H54.7 Unspecified visual loss; I25.10 Atherosclerotic heart disease of native coronary artery without angina pectoris; E78.00 Pure hypercholesterolemia, unspecified; I25.2 Old myocardial infarction; J44.9 Chronic obstructive pulmonary disease, unspecified; K21.9 Gastro-esophageal reflux disease without esophagitis; M54.9 Dorsalgia, unspecified; E86.0 Dehydration; G89.29 Other chronic pain; M19.90 Unspecified osteoarthritis, unspecified site; F41.9 Anxiety disorder, unspecified; F32.A Depression, unspecified; Z98.890 Other specified postprocedural states; Z79.4 Long term (current) use of insulin; Z98.49 Cataract extraction status, unspecified eye; Z88.8 Allergy status to other drugs, medicaments and biological substances
CPT/HCPCS: 36415; 36600; 51702; 71045; 80048; 80053; 80307; 81001; 82803; 82947; 83036; 83605; 83735; 84100; 84132; 85025; 85027; 87040; 96361; 96374; 97162-GP; 97167-GO; 99223; 99233; 99239; 99285; 99285-25; A9270-GY; C1758; J1650; J1815; J1815-GY; J2405; J3475; J3480; J7030